=== PATIENT | male | born 1950 | race Caucasian/White ===

== ENCOUNTER 2021-03-10 15:05 | Outpatient (REF) | payer OTHER, SELFPAY ==
[2021-03-10 16:48] LABS: MANUAL DIFF FLAG NO
[2021-03-10 16:55] LABS: Basophils Percent Auto 0.3 % (0-2); Eosinophils Absolute Auto 0.2 X10*3/uL (0.0-0.4); Eosinophils Percent Auto 3.1 % (0-4); Hematocrit 29.1 % (42-52); Hemoglobin 9.4 g/dl (14.0-18.0); Imm Gran Abs Auto 0.02 X10*3/uL (0.00-0.03); Imm Gran Pct Auto 0.3 % (0.0-0.4); Lymphocytes Absolute Auto 1.1 X10*3/uL (1.2-4.9); Lymphocytes Percent Auto 16.9 % (20-40); Mean Corpuscular HGB Conc 32.3 g/dl (31.0-36.0); Mean Corpuscular Hemoglobin 32.2 pg (27.0-33.0); Mean Corpuscular Volume 99.7 fL (80-98); Monocytes Absolute Auto 0.6 X10*3/uL (0.1-1.2); Neutrophils Absolute Auto 4.3 X10*3/uL (2.0-8.3); Neutrophils Percent Auto 69.4 % (45-73); Platelet Count 107 X10*3/uL (160-400); Red Blood Count 2.92 X10*6/uL (4.60-5.80); Red Cell Distribution Width 15.6 % (11.0-16.0); White Blood Count 6.2 X10*3/uL (4.8-10.8)
[2021-03-10 17:00] LABS: INTERNATIONAL NORM RATIO 1.6 (0.9-1.1); Prothrombin Time 19.2 SEC (10.8-13.0)
[2021-03-10 17:22] LABS: Alanine Aminotransferase 24 U/L (0-40); Albumin Level 3.9 g/dL (3.5-5.0); Alkaline Phosphatase 194 U/L (39-117); Anion Gap 13 (12-20); Aspartate Amino Transferase 35 U/L (5-37); Bilirubin Total 1.6 mg/dL (0.0-1.0); Blood Urea Nitrogen 34 mg/dL (9-16); C Reactive Protein 0.14 mg/dL (< or = 0.50); Calcium 9.2 mg/dL (8.4-10.2); Carbon Dioxide 26 mmol/L (22-29); Chloride 104 mmol/L (96-108); Estimated Glomerular Filt Rate 42; Glucose Random 125 mg/dL (60-115); Potassium 3.8 mmol/L (3.3-5.1); Sodium 139 mmol/L (135-145); Total Protein 6.9 g/dL (6.5-8.0)
[2021-03-10 17:35] LABS: Erythrocyte Sedimentation Rate 23 MM/HR (0-15)
[2021-03-10 17:43] LABS: Ferritin 155 ng/mL (20-250); TSH reflex Free T4 2.88 uIU/mL (0.32-4.0); Vitamin D 25-OH Total 57.4 ng/mL (>30)
[2021-03-10 17:58] LABS: Folate > 20.0 ng/mL (> or = 4.0); Vitamin B12 434 pg/mL (200-900)
[2021-03-12 21:51] LABS: Transglutaminase Ab IgG 4 U/mL
[2021-03-13 15:17] LABS: Mitochondrial Antibodies NEGATIVE (NEGATIVE)
[2021-03-13 20:06] LABS: Immunoglobulin G 1382 mg/dL (600-1540)
[2021-03-14 11:51] LABS: Smooth Muscle Antibody <20 U (<20)
[2021-03-14 13:02] LABS: Vitamin B6 23.1 ng/mL (2.1-21.7)
[2021-03-14 17:32] LABS: Alpha-Tocopherol 8.7 mg/L (5.7-19.9); Beta-Gamma Tocopherol <1.0 mg/L (<=4.3); Vitamin A 73 mcg/dL (38-98)
[2021-03-15 15:27] LABS: Anti Nuclear Antibody Screen NEGATIVE (NEGATIVE)
[2021-03-15 16:36] LABS: Vitamin B5 (Pantothenic Acid) 202 ng/mL (<275)
[2021-03-17 10:42] LABS: Alpha 1 Anti-trypsin 162 mg/dL (83-199); Ceruloplasmin 33 mg/dL (18-36)
[2021-03-17 11:06] LABS: Soluble Liver Ag Autoantibody <20.1 U (0.0-20.0)
== END 2021-03-10 15:06 | disposition home or self-care (01) ==
LOC: HO.LAB 15:05
PROVIDERS: PCP Nurse Practitioner Family; Visit Provider Internal Medicine Gastroenterology
DX: K74.60 Unspecified cirrhosis of liver (principal); R26.9 Unspecified abnormalities of gait and mobility; K75.81 Nonalcoholic steatohepatitis (NASH)
CPT/HCPCS: 36415; 80053; 82103; 82180; 82306; 82390; 82607; 82728; 82746; 82784; 83516; 83520; 84207; 84443; 84446; 84590; 84591; 85025; 85610; 85652; 86038; 86039; 86140; 86255; 86256

== ENCOUNTER 2021-04-15 08:00 | Outpatient (REF) | payer OTHER, SELFPAY ==
--- NOTE | ~2021-04-15 | US_ITS ---
EXAMINATION: US COMPLETE ABDOMEN WITH LIVER ELASTOGRAPHY CLINICAL INFORMATION: Cirrhosis of liver. COMPARISON: None. TECHNIQUE: Real-time imaging of the abdominal viscera. Noninvasive ultrasound liver fibrosis assessment is performed using Mary ElastPQ point quantification shear wave elastography (pSWE) with a C5-2 MHz transducer. Multiple elastography samples are obtained. FINDINGS: PANCREAS: The pancreas is partially obscured by overlying gas. The visualized body of the pancreas is homogeneous in echotexture. ABDOMINAL AORTA: The proximal, middle, and distal aortic segments are normal in caliber. INFERIOR VENA CAVA: Visualized portions are normal. LIVER: There is mild perihepatic fluid. The liver demonstrates normal size, contour and increased echogenicity. No focal lesion or intrahepatic biliary duct dilatation. The right lobe measures 14.8 cm in length. The left lobe measures 13.3 cm in length. Portal flow is hepatopedal and biphasic. Shear wave liver elastography median stiffness is 1.77 m/s (reference: normal median stiffness is 1.3 m/s or less). IQR/median stiffness to assess sampling precision is 0.39 (reference: good quality data set is IQR/median stiffness of 0.15 or less). GALLBLADDER: There are multiple echogenic non-shadowing gallstones with mild wall thickening. There is minimal fluid visualized in the gallbladder. No pericholecystic fluid collection seen. COMMON BILE DUCT: Normal in caliber measuring 0.2 cm in diameter. RIGHT KIDNEY: Normal. No hydronephrosis. No renal calculi or focal parenchymal lesions. The kidney measures 11.4 cm in maximum dimension. LEFT KIDNEY: There is an anechoic cyst lower pole measuring 0.5 x 0.3 x 0.5 cm. No hydronephrosis. No renal calculi or focal parenchymal lesions. The kidney measures 12.3 cm in maximum dimension. SPLEEN: Normal. The spleen measures 12.4 cm in maximum dimension. FREE FLUID: None. US/US abdomen comp w elastography IMPRESSION: 1. Hepatic steatosis without any focal lesion. Mild ascites. Non-shadowing gallstones with mild wall thickening. Minimal fluid seen in the gallbladder wall. 2. Liver elastography: Median stiffness 1.77 corresponding to cACLD suggestive. REFERENCE: Society of Radiologists in Ultrasound Liver Stiffness Thresholds (2020): LIVER STIFFNESS THRESHOLDS: *Liver Stiffness equal or less than 1.3 m/s: High probability of being normal. *Liver Stiffness less than 1.7 m/s: In the absence of other known clinical signs, rules out compensated advanced chronic liver disease. *Liver Stiffness 1.7-2.1 m/s: Suggestive of compensated advanced chronic liver disease but need further test for confirmation. *Liver Stiffness over 2.1 m/s: Rules in compensated advanced chronic liver disease. *Liver Stiffness over 2.4 m/s: Suggestive of clinically significant portal hypertension. QUALITY OF DATA SET: *IQR/Median value equal or less than 0.15 implies a quality data set. *IQR/Median value over 0.15 implies a poor quality data set. SIGNIFICANT CHANGE FROM PRIOR EXAM: Significant change if liver stiffness measurement is 10% or greater from prior exam. OTHER CONSIDERATIONS: The stage of liver fibrosis may be overestimated in the setting of acute hepatitis, liver inflammation, elevated liver function tests, hepatic vascular congestion, obstructive cholestasis, non-fasting state, and infiltrative diseases such as amyloidosis and lymphoma. In some patients with NAFLD, the liver stiffness thresholds for compensated advanced chronic liver disease may be lower. In causes other than viral hepatitis and NAFLD, liver stiffness thresholds are not well established.
== END 2021-04-15 08:01 | disposition home or self-care (01) ==
LOC: HO.US 08:00
PROVIDERS: Visit Provider Internal Medicine Gastroenterology
DX: K74.60 Unspecified cirrhosis of liver (principal); R26.9 Unspecified abnormalities of gait and mobility
CPT/HCPCS: 76705; 76981

== ENCOUNTER 2021-04-15 08:35 | Day surgery (SDC) | payer OTHER, SELFPAY ==
[2021-04-08 20:02] VITALS: BMI 28.2
--- NOTE | 2021-04-13 14:36 | HO.ANESPROP2 ---
HPI - Anesthesia Eval Consult details Narrative: 71yo M for Upper Endoscopy High risk case reviewed with Dr Patel Current management for severe MR/TR at [facility]. All providers aware of recent cirrhosis diagnosis and waiting for results of GI w/u to decide on decision making for surgical repair of valve vs clip. Eliquis for afib (ok to hold per cardiology) h/o bio AVR and CABG 2014 [facility] Active Problems Active Problems: All Active Problems (Updated 04/09/21 @ 11:21 by Zulema Nails) Cirrhosis of liver (Acute) Gait disturbance (Acute) Past Medical History Medical History (Updated 04/13/21 @ 14:42 by Kaitlynn Lewis) Afib Asthma CHF (congestive heart failure) CKD (chronic kidney disease) Headache Hx of carotid stenosis Hypertension Mitral valve regurgitation On anticoagulant therapy On beta juana at home Tricuspid valve regurgitation Surgical History Surgical History (Updated 04/13/21 @ 14:43 by Kaitlynn Lewis) H/O aortic valve repair (~2014) History of decompression of ulnar nerve History of detached retina repair History 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) Social History Social History Patient Tobacco Use Status: Never used Tobacco Use of substances other than those prescribed or required for medical reasons: No Are you DNR?: No Advance Directives: No Advance Directives Information Provided: No Advance Directives on File: No Recently lost weight without trying: No Nutrition Risks: No Nutritional Risk Meds Allergies Allergy/AdvReac Type Severity Reaction Status Date / Time adhesive Allergy Severe Hives Verified 03/12/21 12:11 CASHEWS Allergy Severe Anaphylaxis Uncoded 03/12/21 12:09 peanuts Allergy Severe Anaphylaxis Uncoded 03/12/21 12:09 Home Medications Medication Instructions Recorded Confirmed Last Taken Type albuterol sulfate [Proventil HFA] 2 puff INHALATION DAILY 04/08/21 04/08/21 Unknown History apixaban [Eliquis] 1 tab PO BID 04/08/21 04/08/21 Unknown History ascorbic acid (vitamin C) [Vitamin 500 mg PO DAILY 04/08/21 04/08/21 Unknown History C] atorvastatin 1 tab PO DAILY 04/08/21 04/08/21 Unknown History budesonide-formoterol [Symbicort] 2 puff INHALATION BID 04/08/21 04/08/21 Unknown History budesonide-formoterol [Symbicort] 2 puff PO BID 04/08/21 04/08/21 Unknown History bumetanide 2 mg PO DAILY 04/08/21 04/08/21 Unknown History epinephrine 0.3 mg IM Q10M PRN 04/08/21 04/08/21 Unknown History garlic 3 mg PO DAILY 04/08/21 04/08/21 Unknown History hawthorn green 450 mg PO DAILY 04/08/21 04/08/21 Unknown History lactobacillus combination no.4 3,000 mmu cells PO DAILY 04/08/21 04/08/21 Unknown History [Probiotic] latanoprost 1 drp OPHTHALMIC (EYE) DAILY 04/08/21 04/08/21 Unknown History losartan 1 tab PO DAILY 04/08/21 04/08/21 Unknown History metoprolol succinate 1 tab PO Q12H 04/08/21 04/08/21 Unknown History [id number]-[id number]-tif-epa-fish oil [Fish 1 cap PO DAILY 04/08/21 04/08/21 Unknown History Oil] spironolactone 1 tab PO DAILY 04/08/21 04/08/21 Unknown History Exam Exam Date and Time: April 13, 2021 1436 Height,Weight and Vital Signs: Height 5 ft 6 in Weight 79.379 kg Pertinent Lab Results Pertinent Lab Results: Laboratory Tests 03/10/21 03/10/21 16:35 16:35 WBC 6.2 Hgb 9.4 L Hct 29.1 L Plt Count 107 L Sodium 139 Potassium 3.8 Chloride 104 Carbon Dioxide 26 BUN 34 H Creatinine 1.64 H Laboratory Tests 03/10/21 03/10/21 16:35 16:35 PT 19.2 H INR 1.6 H Total Bilirubin 1.6 H AST 35 ALT 24 Alkaline Phosphatase 194 H C-Reactive Protein 0.14 Total Protein 6.9 Albumin 3.9 Narrative Narrative: MARKUS 11/2020 Normal LV size with low normal LV systolic function EF 50% Severe mitral regurg with slightly eccentric jet going towards lateral wall. There appears to be incomplete coaptation of MV leaflet tips. Moderate to severe tricuspid regurg. Normal functioning bioprosthetic AVR. Nuc Myocardial Perfusion 10/2020 Severe LV dilation with mildly reduced LV function EF 45% Small size of moderate apical ischemia just at the apex EKG portion nondiagnostic d/t afib and abnormal baseline Right Heart Cath 01/2021 PA pressure 52/20. Pulm artery wedge pressure mean 24 with a very large V wave c/w severe MR. RV pressure 48/10, RA pressure mean of 14. Cardiac output Brittny 6.1. Cardiac index 3.2. Coronoary angio Left main mild diffuse disease LAD mid 20% D1 looks patent with competitive flow from the LAZARO Circumflex has ostial and proximal 70% RCA proximal 35% mid 30%. This is dominant vessel. LAZARO to D1 is patent but most of the flow appears antegrade through the LAD, no real significant stenosis. Vein graft to OM1 is occluded at the ostium. Antegrade flow throught the circumflex to OM1 EKG 10/2020 Afib @88 Septal infarct, age undetermined When compared with 04/2007 Afib replaced Sinus Septal infarct is new
--- NOTE | 2021-04-15 | ECG_ITS ---
Test Reason : CAD, AVR Blood Pressure : / mmHG Vent. Rate : 083 BPM Atrial Rate : 075 BPM P-R Int : 000 ms QRS Dur : 098 ms QT Int : 414 ms P-R-T Axes : 000 050 255 degrees QTc Int : 486 ms Atrial fibrillation with premature ventricular or aberrantly conducted complexes Nonspecific T wave abnormality Abnormal ECG No previous ECGs available Referred By: Kaitlynn Lewis Electronically Signed By:ДМИТРИЙ YOUNG MD
[2021-04-15 09:16] VITALS: BP 116/67; PULSE 87; RESP 18; TEMP 36.6; O2SAT 100
--- NOTE | 2021-04-15 09:22 | P.CONAN_ITS ---
[facility] Active Problems Active Problems: All Active Problems (Updated 04/13/21 @ 14:42 by Kaitlynn mccoy) Cirrhosis of liver (Acute) Gait disturbance (Acute) Past Medical History Medical History Afib Asthma CHF (congestive heart failure) CKD (chronic kidney disease) Headache Hx of carotid stenosis Hypertension Mitral valve regurgitation On anticoagulant therapy On beta juana at home Tricuspid valve regurgitation Surgical History Surgical History H/O aortic valve repair (~2014) History of decompression of ulnar nerve History of detached retina repair History 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) Social History Social History Patient Tobacco Use Status: Never used Tobacco Use of substances other than those prescribed or required for medical reasons: No Have you been hit, kicked, punched, or otherwise hurt by someone within the past year? If so, by whom?: No Are you DNR?: No Advance Directives: No Advance Directives Information Provided: No Advance Directives on File: No Recently lost weight without trying: No Nutrition Risks: No Nutritional Risk Meds Allergies Allergy/AdvReac Type Severity Reaction Status Date / Time adhesive Allergy Severe Hives Verified 03/12/21 12:11 CASHEWS Allergy Severe Anaphylaxis Uncoded 03/12/21 12:09 peanuts Allergy Severe Anaphylaxis Uncoded 03/12/21 12:09 Active Medications: Current Medications Generic Name Dose Route Start Last Admin Trade Name Freq PRN Reason Stop Dose Admin Albuterol Sulfate 2.5 mg 04/15/21 06:59 Albuterol Sulfate (0.083%) 2.5 Mg/3 Ml Vial.Neb INHALE ONCE PRN Shortness of Breath/Wheezing Lactated Ringer's 500 mls @ 0 mls/hr 04/15/21 07:00 Lr IVCONT .Q0M JOAN KVO Home Medications Medication Instructions Recorded Confirmed Last Taken Type albuterol sulfate [Proventil HFA] 2 puff INHALATION DAILY 04/08/21 04/08/21 Unknown History apixaban [Eliquis] 1 tab PO BID 04/08/21 04/08/21 Unknown History ascorbic acid (vitamin C) [Vitamin 500 mg PO DAILY 04/08/21 04/08/21 Unknown History C] atorvastatin 1 tab PO DAILY 04/08/21 04/08/21 Unknown History budesonide-formoterol [Symbicort] 2 puff INHALATION BID 04/08/21 04/08/21 Unknown History budesonide-formoterol [Symbicort] 2 puff PO BID 04/08/21 04/08/21 Unknown History bumetanide 2 mg PO DAILY 04/08/21 04/08/21 Unknown History epinephrine 0.3 mg IM Q10M PRN 04/08/21 04/08/21 Unknown History garlic 3 mg PO DAILY 04/08/21 04/08/21 Unknown History hawthorn green 450 mg PO DAILY 04/08/21 04/08/21 Unknown History lactobacillus combination no.4 3,000 mmu cells PO DAILY 04/08/21 04/08/21 Unknown History [Probiotic] latanoprost 1 drp OPHTHALMIC (EYE) DAILY 04/08/21 04/08/21 Unknown History losartan 1 tab PO DAILY 04/08/21 04/08/21 Unknown History metoprolol succinate 1 tab PO Q12H 04/08/21 04/08/21 Unknown History rotmv-0v-swb-epa-fish oil [Fish 1 cap PO DAILY 04/08/21 04/08/21 Unknown History Oil] spironolactone 1 tab PO DAILY 04/08/21 04/08/21 Unknown History Exam Exam Date and Time: April 15, [id number] Height,Weight and Vital Signs: Height 5 ft 6 in Weight 79.379 kg Last Vital Signs Temp 97.9 F 04/15/21 09:16 Pulse 87 04/15/21 09:16 Resp 18 04/15/21 09:16 BP 116/67 04/15/21 09:16 Pulse Ox 100 04/15/21 09:16
[2021-04-15 09:29] LABS: Hematocrit 30.5 % (42-52); Hemoglobin 9.7 g/dl (14.0-18.0); Mean Corpuscular HGB Conc 31.8 g/dl (31.0-36.0); Mean Corpuscular Hemoglobin 31.7 pg (27.0-33.0); Mean Corpuscular Volume 99.7 fL (80-98); Mean Platelet Volume 11.1 fL (9.4-12.4); Red Blood Count 3.06 X10*6/uL (4.60-5.80); Red Cell Distribution Width 14.9 % (11.0-16.0); White Blood Count 6.4 X10*3/uL (4.8-10.8)
[2021-04-15 09:30] LABS: Platelet Count 88 X10*3/uL (160-400)
[2021-04-15] MEDS: Lactated Ringers 500 ML 50 ML IVCONT (09:41)
[2021-04-15 09:44] LABS: INTERNATIONAL NORM RATIO 1.3 (0.9-1.1); Prothrombin Time 15.4 SEC (10.8-13.0)
[2021-04-15 10:06] LABS: Anion Gap 14 (12-20); Blood Urea Nitrogen 32 mg/dL (9-16); Calcium 9.2 mg/dL (8.4-10.2); Carbon Dioxide 26 mmol/L (22-29); Chloride 104 mmol/L (96-108); Creatinine Clr Calc Pharmacy 41.1; Estimated Glomerular Filt Rate 42; Glucose Fasting 101 mg/dL (60-99); Potassium 4.1 mmol/L (3.3-5.1); Sodium 140 mmol/L (135-145)
--- NOTE | 2021-04-15 10:08 | HO.ANESPROP2 ---
[facility] Active Problems Active Problems: All Active Problems (Updated 04/13/21 @ 14:42 by Kaitlynn Lewis) Cirrhosis of liver (Acute) Gait disturbance (Acute) Past Medical History Medical History Afib Asthma CHF (congestive heart failure) CKD (chronic kidney disease) Headache Hx of carotid stenosis Hypertension Mitral valve regurgitation On anticoagulant therapy On beta juana at home Tricuspid valve regurgitation Surgical History Surgical History H/O aortic valve repair (~2014) History of decompression of ulnar nerve History of detached retina repair History 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) Social History Social History Patient Tobacco Use Status: Never used Tobacco Use of substances other than those prescribed or required for medical reasons: No Have you been hit, kicked, punched, or otherwise hurt by someone within the past year? If so, by whom?: No Are you DNR?: No Advance Directives: No Advance Directives Information Provided: No Advance Directives on File: No Recently lost weight without trying: No Nutrition Risks: No Nutritional Risk Meds Allergies Allergy/AdvReac Type Severity Reaction Status Date / Time adhesive Allergy Severe Hives Verified 03/12/21 12:11 CASHEWS Allergy Severe Anaphylaxis Uncoded 03/12/21 12:09 peanuts Allergy Severe Anaphylaxis Uncoded 03/12/21 12:09 Active Medications: Current Medications Generic Name Dose Route Start Last Admin Trade Name Freq PRN Reason Stop Dose Admin Albuterol Sulfate 2.5 mg 04/15/21 06:59 Albuterol Sulfate (0.083%) 2.5 Mg/3 Ml Vial.Neb INHALE ONCE PRN Shortness of Breath/Wheezing Lactated Ringer's 500 mls @ 0 mls/hr 04/15/21 07:00 04/15/21 09:41 Lr IVCONT 50 mls/hr .Q0M JOAN Administration KVO Home Medications Medication Instructions Recorded Confirmed Last Taken Type albuterol sulfate [Proventil HFA] 2 puff INHALATION DAILY 04/08/21 04/08/21 Unknown History apixaban [Eliquis] 1 tab PO BID 04/08/21 04/08/21 Unknown History ascorbic acid (vitamin C) [Vitamin 500 mg PO DAILY 04/08/21 04/08/21 Unknown History C] atorvastatin 1 tab PO DAILY 04/08/21 04/08/21 Unknown History budesonide-formoterol [Symbicort] 2 puff INHALATION BID 04/08/21 04/08/21 Unknown History budesonide-formoterol [Symbicort] 2 puff PO BID 04/08/21 04/08/21 Unknown History bumetanide 2 mg PO DAILY 04/08/21 04/08/21 Unknown History epinephrine 0.3 mg IM Q10M PRN 04/08/21 04/08/21 Unknown History garlic 3 mg PO DAILY 04/08/21 04/08/21 Unknown History hawthorn green 450 mg PO DAILY 04/08/21 04/08/21 Unknown History lactobacillus combination no.4 3,000 mmu cells PO DAILY 04/08/21 04/08/21 Unknown History [Probiotic] latanoprost 1 drp OPHTHALMIC (EYE) DAILY 04/08/21 04/08/21 Unknown History losartan 1 tab PO DAILY 04/08/21 04/08/21 Unknown History metoprolol succinate 1 tab PO Q12H 04/08/21 04/08/21 Unknown History tkgpi-7l-poz-epa-fish oil [Fish 1 cap PO DAILY 04/08/21 04/08/21 Unknown History Oil] spironolactone 1 tab PO DAILY 04/08/21 04/08/21 Unknown History Exam Exam Date and Time: April 15, 2021 1008 Height,Weight and Vital Signs: Height 5 ft 6 in Weight 79.379 kg Last Vital Signs Temp 97.9 F 04/15/21 09:16 Pulse 87 04/15/21 09:16 Resp 18 04/15/21 09:16 BP 116/67 04/15/21 09:16 Pulse Ox 100 04/15/21 09:16 Pertinent Lab Results Pertinent Lab Results: Laboratory Tests 04/15/21 04/15/21 04/15/21 09:22 09:22 09:22 WBC 6.4 RBC 3.06 L Hgb 9.7 L Hct 30.5 L MCV 99.7 H MCH 31.7 MCHC 31.8 RDW 14.9 Plt Count 88 L MPV 11.1 Absolute Nucleated RBC 0.000 Nucleated RBC % (auto) 0.0 PT 15.4 H INR 1.3 H Sodium 140 Potassium 4.1 Chloride 104 Carbon Dioxide 26 Anion Gap 14 BUN 32 H Creatinine 1.63 H Estim Creat Clear Calc 41.1 Estimated GFR 42 Fasting Glucose 101 H Calcium 9.2 Airway Mallampati Class: II TM Dist: >3cm Neck ROM: Full Heart: irregular Lungs: CTA
--- NOTE | 2021-04-15 10:14 | P.HPSUR_ITS ---
Pre-Procedural Eval Section A Date of Service: 04/15/21 Section B Chief Complaint: cirrhosis of liver Relevant Family History (Specify if Yes): No Relevant Social History: None Present Medications: see Short Stay Collaborative assessment Medical History: Significant History (Afib Asthma CHF (congestive heart failure) CKD (chronic kidney disease) Headache Hx of carotid stenosis Hypertension Mitral valve regurgitation On anticoagulant therapy On beta juana at home Tricuspid valve regurgitation) History of Previous Operations: Relevant previous surgery/procedure and date(s) (H/O aortic valve repair (~2014) History of decompression of ulnar nerve History of detached retina repair History 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)) Allergies: Allergies Allergy/AdvReac Type Severity Reaction Status Date / Time adhesive Allergy Severe Hives Verified 03/12/21 12:11 CASHEWS Allergy Severe Anaphylaxis Uncoded 03/12/21 12:09 peanuts Allergy Severe Anaphylaxis Uncoded 03/12/21 12:09 Review of Systems Sugical H&P ROS: Negative: Constitution, Cardiovascular, Respiratory, Neurological, Psychiatric, Hem-Onc, Allergic/Immunologic, Gastrointestinal, Genitourinary, Musculoskeletal, Integumentary, Endocrine and E yes/Ears/Nose/Throat Exam Surgical H&P Exam: Normal: HEENT, Normal: Heart, Normal: Lungs, Normal: Extremities, Normal: Abdomen, Normal: Skin and Normal: Neurological Plan Diagnosis/Plan: Unchanged I have reviewed the history and physical and performed a pertinent physical examination on my patient. No changes have occurred unless specified.
--- NOTE | 2021-04-15 10:16 | P.BOP_ITS ---
Brief Operative Note Date of Service: 04/15/21 Pre-op diagnosis: earyl satiety, hx of cirrhosis Post-op diagnosis: same Procedure: see op note Surgeon: Darin Garay MD Anesthesia: MAC Was an Documentation Manager used for this Procedure?: No Estimated blood loss (mL): 0 Condition: stable Disposition: PACU
--- NOTE | 2021-04-15 10:16 | W.PM.OPN ---
Operative Note Operative Note Date of Service: 04/15/21 Narrative: Procedure Description: EGD FLEXIBLE TRANSORAL UPPER GASTROINTESTINAL ENDOSCOPY UPPER ENDOSCOPY Consent: Indications for the procedure and potential complications of bleeding, perforation, reaction to medications and missed diagnosis were discussed with the patient and informed consent was obtained. Instrument: Olympus GIF H 190 J mid size upper endoscope Monitoring: Vital signs and clinical assessment, continuous EKG monitoring, Pulse oximetry, Carbon Dioxide monitoring and blood pressure monitoring were done throughout the procedure. Procedure: The patient was placed in the left lateral decubitis position and pre-procedure medications were administered and a bite block was placed. The endoscope was inserted into the mouth and advanced under direct vision to the third part of duodenum. A careful inspection was made as the upper endoscope was withdrawn including a retroflexed examination of the proximal stomach; Findings and interventions are described below. Findings: Larynx:normal Esophagus: GE junction at 41 cm, diaphragm hiatus at 41 cm, one small varix noted, mild esophagitis Stomach: Patchy gastric erythema with mosaic pattern consistent with portal hypertensive gastropathy . Biopsies were obtained. Grade 2 flap valve on retroflexed examination of the cardia. No gastric varices seen Duodenum: Normal bulb and descending duodenum, bx taken There appeared to be a paucity of gastric movement Intervention: Biopsies as noted above Impression/Findings: possible gastroparesis esophagitis gastritis portal hypertensive gastropathy esophageal varix PLAN: will d/w patient about getting gastric emptying study, await bx results, may benefit from PPi if not taking
[2021-04-15 10:53] VITALS: BP 91/57; PULSE 79; RESP 16; TEMP 36.9; O2SAT 95
[2021-04-15 11:08] VITALS: BP 91/58; PULSE 71; RESP 18; O2SAT 96
[2021-04-15 11:23] VITALS: BP 97/60; PULSE 74; RESP 16; O2SAT 98
[2021-04-15 11:40] VITALS: BP 100/64; PULSE 83; RESP 20; O2SAT 99
== END 2021-04-15 12:35 | disposition home or self-care (01) ==
PROVIDERS: Nurse Practitioner; PCP Nurse Practitioner Family; Visit Provider Internal Medicine Gastroenterology
PROC: 0DJ08ZZ Inspection of Upper Intestinal Tract, Via Natural or Artificial Opening Endoscopic (ICD-10-PCS; CPT 43235; principal; 2021-04-15 10:10)
DX: K74.60 Unspecified cirrhosis of liver (principal); R63.4 Abnormal weight loss; K76.6 Portal hypertension; K31.89 Other diseases of stomach and duodenum; K31.84 Gastroparesis; K29.50 Unspecified chronic gastritis without bleeding; K20.90 Esophagitis, unspecified without bleeding; K44.9 Diaphragmatic hernia without obstruction or gangrene; I85.00 Esophageal varices without bleeding; I48.91 Unspecified atrial fibrillation; J45.909 Unspecified asthma, uncomplicated; I13.0 Hypertensive heart and chronic kidney disease with heart failure and stage 1 through stage 4 chronic kidney disease, or unspecified chronic kidney disease; N18.9 Chronic kidney disease, unspecified; I50.9 Heart failure, unspecified; Z79.01 Long term (current) use of anticoagulants; Z79.899 Other long term (current) drug therapy
CPT/HCPCS: 43239; 36415; 80048; 85027; 85610; 88305; 88342; 93005; J3010

== ENCOUNTER 2021-05-06 18:41 | Inpatient (IN) | payer OTHER, MEDICARE, SELFPAY ==
--- NOTE | ~2021-05-06 | XR_ITS ---
EXAMINATION: XR TIBIA AND FIBULA, LEFT CLINICAL INFORMATION: Pain, swelling, tenderness COMPARISON: None TECHNIQUE: AP and lateral views of the left tibia and fibula were obtained. FINDINGS: Total knee arthroplasty hardware appears well seated and in anatomic alignment. No acute fracture is seen. Alignment at the ankle is anatomic. Vascular calcification is present. There is chronic appearing fragmentation of the tibial tubercle. Some anterior soft tissue swelling is noted in the infrapatellar region of the knee. XR/XR tibia fibula LT 2V IMPRESSION: Anterior soft tissue swelling in the infrapatellar region. No acute osseous findings.
--- NOTE | ~2021-05-06 | XR_ITS ---
EXAMINATION: XR CHEST CLINICAL INFORMATION: Shortness of breath. Volume overload. COMPARISON: None TECHNIQUE: 2 views of the chest were obtained. FINDINGS: Status post median sternotomy. The heart size is enlarged. No acute abnormality of the chest. No pulmonary vascular congestion. The airspace disease or pleural effusion. There are degenerative changes of glenohumeral joints and acromioclavicular joints of each shoulder. Multilevel degenerative spondylosis of the dorsal spine. XR/XR chest 2V IMPRESSION: No acute abnormality of chest. Cardiomegaly.
--- NOTE | ~2021-05-06 | US_ITS ---
EXAMINATION: US VENOUS ULTRASOUND WITH DOPPLER LOWER EXTREMITY, LEFT CLINICAL INFORMATION: Left lower extremity edema with pain COMPARISON: None TECHNIQUE: Ultrasound of the deep veins is performed from the hip to the calf with compression sonography and color and pulse Doppler assessment. Spectral analysis with color-flow imaging is performed. FINDINGS: There is normal venous compression and respiratory variation and augmented flow. The visualized common femoral vein, superficial femoral vein, profunda femoral vein, popliteal vein, and the trifurcation region shows no evidence of deep venous thrombosis. There is no significant popliteal fossa cyst. At 2.9 cm left groin lymph node is present. The right common femoral vein appears normal. If the patient's symptoms persist, followup ultrasound in 5 days 7 days might be of value to exclude proximal propagation from a non-visualized calf vein. US/US venous duplex LE IMPRESSION: No DVT demonstrated in the left lower extremity.
[2021-05-06 19:50] VITALS: BP 105/63; PULSE 80; RESP 16; TEMP 36.9; O2SAT 98; BMI 28.0
[2021-05-06 20:11] LABS: MANUAL DIFF FLAG NO
[2021-05-06 20:19] LABS: Basophils Percent Auto 0.3 % (0-2); Eosinophils Absolute Auto 0.1 X10*3/uL (0.0-0.4); Eosinophils Percent Auto 1.1 % (0-4); Hematocrit 30.3 % (42-52); Hemoglobin 9.8 g/dl (14.0-18.0); Imm Gran Abs Auto 0.04 X10*3/uL (0.00-0.03); Imm Gran Pct Auto 0.4 % (0.0-0.4); Lymphocytes Absolute Auto 0.9 X10*3/uL (1.2-4.9); Lymphocytes Percent Auto 8.8 % (20-40); Mean Corpuscular HGB Conc 32.3 g/dl (31.0-36.0); Mean Corpuscular Hemoglobin 31.5 pg (27.0-33.0); Mean Corpuscular Volume 97.4 fL (80-98); Mean Platelet Volume 10.9 fL (9.4-12.4); Monocytes Absolute Auto 0.9 X10*3/uL (0.1-1.2); Monocytes Percent Auto 8.8 % (2-11); Neutrophils Absolute Auto 8.1 X10*3/uL (2.0-8.3); Neutrophils Percent Auto 80.6 % (45-73); Red Blood Count 3.11 X10*6/uL (4.60-5.80); Red Cell Distribution Width 14.2 % (11.0-16.0); White Blood Count 10.1 X10*3/uL (4.8-10.8)
[2021-05-06 20:21] LABS: Platelet Count 88 X10*3/uL (160-400)
[2021-05-06 20:42] LABS: Anion Gap 15 (12-20); Blood Urea Nitrogen 38 mg/dL (9-16); Carbon Dioxide 25 mmol/L (22-29); Chloride 101 mmol/L (96-108); Creatinine Clr Calc Pharmacy 35.7; Estimated Glomerular Filt Rate 36; Glucose Random 92 mg/dL (60-115); Potassium 4.5 mmol/L (3.3-5.1); Sodium 136 mmol/L (135-145)
--- NOTE | 2021-05-06 20:50 | ECG_ITS ---
Test Reason : LEG SWELLING Blood Pressure : / mmHG Vent. Rate : 087 BPM Atrial Rate : 166 BPM P-R Int : 000 ms QRS Dur : 096 ms QT Int : 406 ms P-R-T Axes : 000 045 158 degrees QTc Int : 488 ms Atrial fibrillation Nonspecific T wave abnormality Prolonged QT Abnormal ECG When compared with ECG of 15-APR-2021 09:24, No significant change was found Referred By: Sena Morfin Electronically Signed By:ДМИТРИЙ YOUNG MD
--- NOTE | 2021-05-06 20:52 | ED.EXTPRO ---
HPI - Extremity Problem General Chief complaint: Extremity Problem Stated complaint: Leg Swelling/Hot to touch Time Seen by Provider: 05/06/21 20:34 Source: patient and family Mode of arrival: wheelchair Limitations: no limitations History of Present Illness HPI Narrative: 71 y/o male with history of atrial fibrillation on apixaban, asthma, CKD, carotid stenosis, cirrhosis (?MEJÍA) with portal HTN and esophageal varies, CHF w/ EF 45%, severe mitral regurgitation and tricuspid regurgitation, s/p aortic valve placement & CABG 6 years ago who presents to the ER with acute onset of LLE pain, redness and swelling that started today. He denies injury or trauma. He reports his left lower leg all of the sudden became red and painful when he woke up today. He denies fever, chills. Temp recorded at 99 at home. He is unable to walk due to the pain. He reports decreased PO intake and upset stomach. He also reports increase in LE edema and increase in SOB. He is currently in the middle of a workup for possible valve replacements at [facility] and was supposed to get admitted to a hospital for IV diuresis for increase LE edema and SOB. Family reports this was delayed due to affairs at home. His overall weight has been decreasing but his LE edema and SOB are worsening. He has been compliant with his Bumex. Admits to trying to find salt whenever I can but family does not cook with it. Complaint: extremity pain Onset (ago): hour(s) (12) Pain Consistency: constant Location: left and lower extremity Severity scale (1-10): 8 Quality: burning and aching Radiation: proximal Relieving factors: rest Exacerbating factors: range of motion, weight bearing, walking and palpation Associated symptoms: shortness of breath and myalgias Related Data Home Medications Medication Instructions Recorded Confirmed albuterol sulfate [Proventil HFA] 2 puff INHALATION DAILY 04/08/21 05/06/21 apixaban [Eliquis] 1 tab PO BID 04/08/21 05/06/21 ascorbic acid (vitamin C) [Vitamin 1,000 mg PO DAILY@12 04/08/21 05/06/21 C] atorvastatin 1 tab PO BEDTIME 04/08/21 05/06/21 budesonide-formoterol [Symbicort] 2 puff INHALATION BID 04/08/21 05/06/21 bumetanide 2 mg PO DAILY 04/08/21 05/06/21 epinephrine 0.3 mg IM Q10M PRN 04/08/21 05/06/21 hawthorn green 450 mg PO BEDTIME 04/08/21 05/06/21 lactobacillus combination no.4 3,000 mmu cells PO DAILY@12 04/08/21 05/06/21 [Probiotic] latanoprost 1 drp OPHTHALMIC (EYE) BEDTIME 04/08/21 05/06/21 losartan 1 tab PO DAILY 04/08/21 05/06/21 metoprolol succinate 1 tab PO Q12H 04/08/21 05/06/21 [id number] oil [Fish 1 cap PO BEDTIME 04/08/21 05/06/21 Oil] spironolactone 1 tab PO DAILY 04/08/21 05/06/21 erythromycin 1 appl OPHTHALMIC (EYE) BEDTIME 05/06/21 05/06/21 garlic 1,000 mg PO DAILY@12 05/06/21 05/06/21 montelukast 1 tab PO BEDTIME 05/06/21 05/06/21 multivitamin 1 tab PO DAILY 05/06/21 05/06/21 Allergies Allergy/AdvReac Type Severity Reaction Status Date / Time adhesive Allergy Severe Hives Verified 05/06/21 19:55 CASHEWS Allergy Severe Anaphylaxis Uncoded 05/06/21 19:55 peanuts Allergy Severe Anaphylaxis Uncoded 05/06/21 19:55 Review of Systems Review of Systems: Constitutional: No Fever, No Chills ENT/Mouth: No sore throat, No Rhinorrhea, No Swallowing Difficulty Eyes: No Eye Pain, No Swelling, No Redness Cardiovascular: No Chest Pain, + SOB, + Orthopnea, + Edema Respiratory: No Cough, No Sputum, No Wheezing, + dyspnea Gastrointestinal: No Nausea, No Vomiting, No Diarrhea, No abdominal Pain Genitourinary: No Dysuria, No Urinary Frequency, No Hematuria Musculoskeletal: No joint pain, + Myalgias Skin: + Skin Lesions, No rash Neuro: + Weakness, No Numbness, No Dizziness, No Headache Psych: No Anxiety/Panic, No Depression Heme/Lymph: + Bruising, No Lymphadenopathy Endocrine: No Polyuria, No Polydipsia PMFSH Past Medical History Attestation statement: The following information was validated with the patient. Medical History Afib Asthma CHF (congestive heart failure) CKD (chronic kidney disease) Headache Hx of carotid stenosis Hypertension Mitral valve regurgitation On anticoagulant therapy On beta juana at home Tricuspid valve regurgitation Surgical History H/O aortic valve repair (~2014) History of decompression of ulnar nerve History of detached retina repair History 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) Social History Social History Patient Tobacco Use Status: Never used Tobacco Advance Directives: No Advance Directives Information Provided: Yes Physical Exam Vital Signs: Vital Signs: Last Vital Signs Temp 98.8 F 05/06/21 22:33 Pulse 107 H 05/06/21 22:33 Resp 16 05/06/21 22:33 BP 92/50 L 05/06/21 23:45 Pulse Ox 98 05/06/21 22:33 Body Mass Index 28.0 Appearance: Alert. Oriented X3. No acute distress. Slight yellowing of skin Eyes: Pupils asymmetric but reactive to light (chronic per family), EOMI, no nystagmus ENT: Pharynx normal. Neck: Normal inspection. Neck supple. CVS: irregularly irregular, +murmus. Pulses normal. Respiratory: No respiratory distress. Breath sounds with bibasilar rales, Speaks in complete sentences Abdomen: Soft with mild RUQ tenderness, ne rebound or guarding. +BS x4 Skin: Skin warm and dry. Normal skin turgor. No rashes. Extremities: 3+ lower extremity edema. LLE with distal area of erythema, warmth and tenderness from ankle to middle tibia. NV intact distally. Neuro: Oriented X 3. No motor deficit. No sensory deficit. Unable to assess gait due to pain. Course Course Course Narrative: 71 y/o male with multiple comorbidities including CHF w/ EF 45%, severe TR/MR, cirrhosis, CKD presenting with LLE erythema, warmth and tenderness consistent with localilzed cellulitis. He is not diabetic. He is not febrile or tachycardic on arrival. Does not appear to be septic at this time. He has significant bilateral LE edema and reports ongoing SOB. Will get labs, CXR, EKG, and LE doppler (per family request, DVT less likely given he is on Eliquis). Reviewed records at the bedside with the family from [facility] as well as imaging done as an outpatient. Will give IV rocephin for cellulitis. Reevaluation(s) Reevaluation #1: No leukocytosis on labs. Renal function slightly worsening. ?Cardiorenal. Mild elevation in troponin. Doubt ACS. EKG showing chronic afib. Reevaluation #2: CXR showing only cardiomegaly. LE doppler negative. Not hypoxia. BNP is 745. Will plan to admit for LLE cellulitis and CHF exacerbation/volume overload. BP soft 90/60s with MAP 61-64. Will hold off on IV diuresis for now and plan for oral diuretics tonight, discussed with Hospitalist Dr. Blank. Upon review his BP has run in the 90/50s one month ago as well, this may be his baseline. He is AAO x3 and asymptomatic from his soft BP. Do not think that this is from sepsis at this time. IVF would be more harmful than helpful at this time. Will hold antihypertensives and monitor BP closely. Patient to be admitted for further management. Cardiology to see tomorrow. MDM - Extremity (Nontraumatic) Lab Data Result diagrams: 05/06/21 20:06 05/06/21 20:06 Labs: Lab Results 05/06/21 05/06/21 05/06/21 Range/Units 20:06 20:06 20:06 WBC 10.1 (4.8-10.8) X10*3/uL RBC 3.11 L (4.60-5.80) X10*6/uL Hgb 9.8 L (14.0-18.0) g/dl Hct 30.3 L (42-52) % MCV 97.4 (80-98) fL MCH 31.5 (27.0-33.0) pg MCHC 32.3 (31.0-36.0) g/dl RDW 14.2 (11.0-16.0) % Plt Count 88 L (160-400) X10*3/uL MPV 10.9 (9.4-12.4) fL Immature Gran % (Auto) 0.4 (0.0-0.4) % Neut % (Auto) 80.6 H (45-73) % Lymph % (Auto) 8.8 L (20-40) % Angelina % (Auto) 8.8 (2-11) % Eos % (Auto) 1.1 (0-4) % Baso % (Auto) 0.3 (0-2) % Lymph # (Auto) 0.9 L (1.2-4.9) X10*3/uL Angelina # (Auto) 0.9 (0.1-1.2) X10*3/uL Eos # (Auto) 0.1 (0.0-0.4) X10*3/uL Baso # (Auto) 0.0 (0.0-0.2) X10*3/uL Abs Immat Gran (auto) 0.04 H (0.00-0.03) X10*3/uL Absolute Neuts (auto) 8.1 (2.0-8.3) X10*3/uL Absolute Nucleated RBC 0.000 (0.0-0.012) X10*3/uL Nucleated RBC % (auto) 0.0 (0.0-0.2) /100WBC ESR Sodium 136 (135-145) mmol/L Potassium 4.5 (3.3-5.1) mmol/L Chloride 101 (96-108) mmol/L Carbon Dioxide 25 (22-29) mmol/L Anion Gap 15 (12-20) BUN 38 H (9-16) mg/dL Creatinine 1.87 H (0.5-1.4) mg/dL Estim Creat Clear Calc 35.7 Estimated GFR 36 Random Glucose 92 (60-115) mg/dL Lactic Acid (0.5-2.0) mmol/L Calcium 9.0 (8.4-10.2) mg/dL Total Bilirubin 2.0 H (0.0-1.0) mg/dL Direct Bilirubin 1.1 H (0.0-0.5) mg/dL AST 29 (5-37) U/L ALT 24 (0-40) U/L Alkaline Phosphatase 213 H (39-117) U/L Troponin I High Sens 18.4 (<3.5-35.0) ng/L C-Reactive Protein 0.66 H (< or = 0.50) mg/dL B-Natriuretic Peptide 745 H (<100) pg/mL Total Protein 7.1 (6.5-8.0) g/dL Albumin 4.0 (3.5-5.0) g/dL Prealbumin 22.0 (20-40) mg/dL 05/06/21 05/06/21 Range/Units 20:06 21:26 WBC (4.8-10.8) X10*3/uL RBC (4.60-5.80) X10*6/uL Hgb (14.0-18.0) g/dl Hct (42-52) % MCV (80-98) fL MCH (27.0-33.0) pg MCHC (31.0-36.0) g/dl RDW (11.0-16.0) % Plt Count (160-400) X10*3/uL MPV (9.4-12.4) fL Immature Gran % (Auto) (0.0-0.4) % Neut % (Auto) (45-73) % Lymph % (Auto) (20-40) % Angelina % (Auto) (2-11) % Eos % (Auto) (0-4) % Baso % (Auto) (0-2) % Lymph # (Auto) (1.2-4.9) X10*3/uL Angelina # (Auto) (0.1-1.2) X10*3/uL Eos # (Auto) (0.0-0.4) X10*3/uL Baso # (Auto) (0.0-0.2) X10*3/uL Abs Immat Gran (auto) (0.00-0.03) X10*3/uL Absolute Neuts (auto) (2.0-8.3) X10*3/uL Absolute Nucleated RBC (0.0-0.012) X10*3/uL Nucleated RBC % (auto) (0.0-0.2) /100WBC ESR Cancelled Sodium (135-145) mmol/L Potassium (3.3-5.1) mmol/L Chloride (96-108) mmol/L Carbon Dioxide (22-29) mmol/L Anion Gap (12-20) BUN (9-16) mg/dL Creatinine (0.5-1.4) mg/dL Estim Creat Clear Calc Estimated GFR Random Glucose (60-115) mg/dL Lactic Acid 0.9 (0.5-2.0) mmol/L Calcium (8.4-10.2) mg/dL Total Bilirubin (0.0-1.0) mg/dL Direct Bilirubin (0.0-0.5) mg/dL AST (5-37) U/L ALT (0-40) U/L Alkaline Phosphatase (39-117) U/L Troponin I High Sens (<3.5-35.0) ng/L C-Reactive Protein (< or = 0.50) mg/dL B-Natriuretic Peptide (<100) pg/mL Total Protein (6.5-8.0) g/dL Albumin (3.5-5.0) g/dL Prealbumin (20-40) mg/dL ECG Data Attestation EKG: I personally reviewed and interpreted this ECG as follows: ECG interpretation date: 05/06/21 ECG interpretation time: 22:42 Prior ECG tracings: available for review Interpretation: atrial fibrillation, HR 87 bpm, isolated T-wave inversion in V6, no ST segment elevations or depressions Discharge Plan Discharge Clinical Impression: Cellulitis of left leg Acute exacerbation of CHF (congestive heart failure) Qualifiers: Heart failure type: unspecified Qualified Code(s): I50.9 - Heart failure, unspecified Patient Disposition: Admitted As Inpatient
[2021-05-06 21:40] LABS: B Type Natriuretic Peptide 745 pg/mL (<100); Troponin-I High Sensitivity 18.4 ng/L (<3.5-35.0)
[2021-05-06 22:09] LABS: Lactic Acid 0.9 mmol/L (0.5-2.0)
--- NOTE | 2021-05-06 22:31 | PHA.MEDREC ---
Pharmacy Consult ? Medication Reconciliation Pharmacy has completed the medication reconciliation. PT states he only took his AM meds today. He states he still needs his bedtime doses for 05/06/21.
[2021-05-06 22:33] VITALS: BP 91/47; PULSE 107; RESP 16; TEMP 37.1; O2SAT 98
[2021-05-06] MEDS: cefTRIAXone sodium 1 GM in 0.9 % Sodium Chloride 50 ML IV (22:47)
[2021-05-06 22:54] LABS: Alanine Aminotransferase 24 U/L (0-40); Alkaline Phosphatase 213 U/L (39-117); Aspartate Amino Transferase 29 U/L (5-37); Bilirubin Direct 1.1 mg/dL (0.0-0.5); Total Protein 7.1 g/dL (6.5-8.0)
[2021-05-06 23:26] LABS: C Reactive Protein 0.66 mg/dL (< or = 0.50)
--- NOTE | 2021-05-06 23:30 | PC.NURSE ---
Addendum entered by Manuel Akers RN 05/07/21 06:35: lower LEFT leg Original Note: pt requesting to use the bathroom. this nurse offered pt bedside urinal as he is unable to bear much weight on right lower leg but pt refused bedside urinal. this nurse assisted pt to bathroom in wheelchair. pt back in bed at this time. no distress noted. call lópez in reach.
[2021-05-06 23:45] VITALS: BP 92/50
--- NOTE | 2021-05-06 23:45 | PC.NURSE ---
bp 92/50 hospitalist (Pita) notified no new orders at this time.
[2021-05-07] VITALS (10 sets, daily range): BP systolic 82–119; BP diastolic 48–72; PULSE 77–106; RESP 14–29; TEMP 36.8–37.6; O2SAT 96–100
[2021-05-07] MEDS: 0.9 % Sodium Chloride Flush 3 ML SYRINGE IVFLUSH ×3 (00:08→15:30)
[2021-05-07 00:09] LABS: COVID-19 Test Negative (Negative); IDNOW Serial# 9DD0AD1C
--- NOTE | 2021-05-07 00:17 | PM.SEPSISNOT ---
Sepsis Bolus Exclusion Sepsis Bolus Exclusion CHF/Renal Failure This patient met severe sepsis criteria due to the following condition(s):: Hypotension In my clinical judgement the administration of 30 ml/kg of crystalloid would be detrimental to this patient due to the patient's following conditions:: NYHA class III or IV Heart Failure(symptoms with low exertion or rest) Replace the 30 mls/kg with:
[2021-05-07] MEDS: Apixaban 5 MG TABLET PO ×3 (00:19→20:28)
[2021-05-07] MEDS: Atorvastatin Calcium 40 MG TABLET PO ×2 (00:19→20:28)
[2021-05-07 00:22] LABS: Troponin-I High Sensitivity 16.4 ng/L (<3.5-35.0)
--- NOTE | 2021-05-07 00:25 | PC.NURSE ---
pt family at bedside requesting that pt gets his nightly dose of Montelukast (Singulair). first dose is schedules for 05/07/2021 at 21:00 unscheduled night dose given for 05/06/2021 given at 00:26 on 05/07/2021
[2021-05-07] MEDS: Montelukast Sodium 10 MG TABLET PO ×2 (00:33→20:28)
[2021-05-07 00:36] LABS: Erythrocyte Sedimentation Rate 23 MM/HR (0-15)
--- NOTE | 2021-05-07 00:52 | P.HPHOSP_ITS ---
History of Present Illness Date of Service: 05/07/21 Chief Complaint: Left leg pain redness and swelling 71-year-old male with a past medical history of hypertension, hyperlipidemia, CAD status post CABG, carotid artery disease, CHF with EF of 45%, AFib on Eliquis, history of aortic valve replacement, severe mitral and tricuspid regurgitation, liver cirrhosis, portal hypertension, history of esophageal varices, asthma, chronic kidney disease presented to the hospital with a chief complaint of left leg pain redness and swelling. Patient reports that noticed pain redness and swelling of the left leg the past 1 day, when he tried to walk he has increased pain; denies any discharge or ulcerations; denies any trauma or injury to the leg. Patient complains of subjective fevers. Patient denies any chest pain palpitations lightheadedness or dizziness. Patient does report that he has shortness of breath/dyspnea on exertion-at his baseline; per family patient is being [place] [facility] [place] for mitral and tricuspid regurgitation; has seen a heart failure specialist, recommended diuresis/fluid state optimization prior to surgery. Review of all other systems is negative except mentioned above ER course: Per ER team patient noted to have left leg erythema, tender, warmth, consistent with cellulitis, given ceftriaxone. Patient had venous duplex which showed no evidence of DVT. Soft tissue swelling, no acute osseous abnormalities; admitted to the hospital for further management. Also mentioned that patient respiratory status is good, saturating 98% on room air; lungs are clear; but noted to have 2+ pitting edema on the bilateral lower extremities; did not give Bumex given blood pressure on the soft side. [facility] Medical History Afib Asthma CHF (congestive heart failure) CKD (chronic kidney disease) Headache Hx of carotid stenosis Hypertension Mitral valve regurgitation On anticoagulant therapy On beta juana at home Tricuspid valve regurgitation Surgical History H/O aortic valve repair (~2014) History of decompression of ulnar nerve History of detached retina repair History 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) Social History Household Members: None Housing: House Do you presently have visiting nurse or other home services: No Alcohol intake: never Patient Tobacco Use Status: Never used Tobacco Current occupational status: retired Meds Allergies Allergy/AdvReac Type Severity Reaction Status Date / Time adhesive Allergy Severe Hives Verified 05/06/21 19:55 CASHEWS Allergy Severe Anaphylaxis Uncoded 05/06/21 19:55 peanuts Allergy Severe Anaphylaxis Uncoded 05/06/21 19:55 Active Medications: Current Medications Generic Name Dose Route Start Last Admin Trade Name Patty PRN Reason Stop Dose Admin Albuterol Sulfate 2 puff 05/07/21 09:00 Albuterol Sulfate 90 Mcg 8 Gm Inhaler INHALE DAILY [facility] Apixaban 5 mg 05/06/21 23:50 05/07/21 00:19 Apixaban 5 Mg Tablet PO 5 mg BID [facility] Administration Ascorbic Acid 1,000 mg 05/07/21 12:00 Ascorbic Acid 500 Mg Tablet PO DAILY@12 [facility] Atorvastatin Calcium 40 mg 05/06/21 23:50 05/07/21 00:19 Atorvastatin Calcium 40 Mg Tablet PO 40 mg BEDTIME [facility] Administration Bumetanide 2 mg 05/07/21 09:00 Bumetanide 1 Mg Tablet PO DAILY [facility] Protocol Epinephrine 0.3 mg 05/07/21 00:10 Epinephrine 1 Mg/Ml Vial IM Q10M PRN Anaphylaxis Erythromycin 0 cm 05/07/21 21:00 Erythromycin Base 0.5% Oph Oin 1 Gm Tube EYE-BOTH BEDTIME [facility] Fluticasone/Vilanterol 1 puff 05/07/21 09:00 Fluticasone/Vilanterol 200/25 Blst.W.Dev INHALE DAILY [facility] Ceftriaxone Sodium 1 gm/ 50 mls @ 100 mls/hr 05/07/21 10:00 Sodium Chloride IV Q24H [facility] Latanoprost 1 drop 05/06/21 23:50 05/07/21 00:50 Latanoprost 0.005 % Ophth Elena 2.5 Ml Drops EYE-BOTH Not Given BEDTIME [facility] Melatonin 6 mg 05/06/21 23:44 Melatonin 3 Mg Tablet PO BEDTIME PRN Insomnia Montelukast Sodium 10 mg 05/07/21 21:00 05/07/21 00:33 Montelukast Sodium 10 Mg Tablet PO 10 mg BEDTIME [facility] Administration Multivitamins/Vitamin C 1 tab 05/07/21 09:00 Multivitamin Tablet PO DAILY [facility] Pharmacy Consult 1 each 05/06/21 22:06 Consult Rx Perform Med Rec MISCELLANE ONCE PRN Consult order Sodium Chloride 3 ml 05/07/21 00:00 05/07/21 00:08 0.9 % Sodium Chloride Flush 3 Ml Syringe IVFLUSH 3 ml QSHIFT [facility] Administration Spironolactone 25 mg 05/07/21 09:00 Spironolactone 25 Mg Tablet PO DAILY [facility] Protocol Home Medications Medication Instructions Recorded Confirmed Last Taken Type albuterol sulfate 90 mcg/actuation 2 puff INHALATION DAILY 04/08/21 05/06/21 05/06/21 History aerosol inhaler (Proventil HFA) apixaban 5 mg tablet (Eliquis) 1 tab PO BID 04/08/21 05/06/21 05/06/21 History ascorbic acid (vitamin C) 500 mg 1,000 mg PO DAILY@12 04/08/21 05/06/21 05/05/21 History tablet (Vitamin C) atorvastatin 40 mg tablet 1 tab PO BEDTIME 04/08/21 05/06/21 05/05/21 History budesonide-formoterol HFA 160 2 puff INHALATION BID 04/08/21 05/06/21 05/06/21 History mcg-4.5 mcg/actuation aerosol inhaler (Symbicort) bumetanide 2 mg tablet 2 mg PO DAILY 04/08/21 05/06/21 05/06/21 History epinephrine 0.3 mg/0.3 mL 0.3 mg IM Q10M PRN 04/08/21 05/06/21 Unknown History injection, auto-injector adán green 450 mg capsule 450 mg PO BEDTIME 04/08/21 05/06/21 05/05/21 History lactobacillus combination no.4 3 3,000 mmu cells PO DAILY@12 04/08/21 05/06/21 05/05/21 History billion cell capsule (Probiotic) latanoprost 0.005 % eye drops 1 drp OPHTHALMIC (EYE) BEDTIME 04/08/21 05/06/21 05/05/21 History losartan 25 mg tablet 1 tab PO DAILY 04/08/21 05/06/21 05/05/21 History metoprolol succinate 100 mg 1 tab PO Q12H 04/08/21 05/06/21 05/06/21 History tablet,extended release 24 hr [id number]-fish oil 120 1 cap PO BEDTIME 04/08/21 05/06/21 05/05/21 Hi story mg-180 mg-60 mg-1,200 mg capsule, DR (Fish Oil) spironolactone 25 mg tablet 1 tab PO DAILY 04/08/21 05/06/21 05/06/21 History erythromycin 5 mg/gram (0.5 %) eye 1 appl OPHTHALMIC (EYE) BEDTIME 05/06/21 05/06/21 05/05/21 History ointment garlic 1,000 mg capsule 1,000 mg PO DAILY@12 05/06/21 05/06/21 05/05/21 History montelukast 10 mg tablet 1 tab PO BEDTIME 05/06/21 05/06/21 05/05/21 History multivitamin 1 tab PO DAILY 05/06/21 05/06/21 05/06/21 History Physical Exam Vital Signs and Narrative: Vital Signs: Last Vital Signs Temp 98.8 F 05/06/21 22:33 Pulse 107 H 05/06/21 22:33 Resp 16 05/06/21 22:33 BP 92/50 L 05/06/21 23:45 Pulse Ox 98 05/06/21 22:33 Body Mass Index 28.0 Gen: Appears be in no acute distress HEENT: NCAT, Moist mucosa. Pulmonary: Vesicular breath sounds, fair air entry CVS: Normal present Abdomen: BS+, Soft, Nontender Extremities: Warm well perfused; 2+ pitting edema; left leg warm hyperemic and erythematous; tender. Neuro: Alert and awake. Grossly nonfocal Results Labs CBC and Chem 7: 05/07/21 07:40 05/09/21 09:19 Labs: Laboratory Results - last 24 hr 05/06/21 05/06/21 05/06/21 20:06 20:06 20:06 MCV 97.4 MCH 31.5 MCHC 32.3 RDW 14.2 Plt Count 88 L MPV 10.9 Immature Gran % (Auto) 0.4 Neut % (Auto) 80.6 H Lymph % (Auto) 8.8 L [place] % (Auto) 8.8 Eos % (Auto) 1.1 Baso % (Auto) 0.3 Lymph # (Auto) 0.9 L [place] # (Auto) 0.9 Eos # (Auto) 0.1 Baso # (Auto) 0.0 Abs Immat Gran (auto) 0.04 H Absolute Neuts (auto) 8.1 Absolute Nucleated RBC 0.000 Nucleated RBC % (auto) 0.0 ESR Anion Gap 15 Estim Creat Clear Calc 35.7 Estimated GFR 36 Random Glucose 92 Lactic Acid Calcium 9.0 Total Bilirubin 2.0 H Direct Bilirubin 1.1 H AST 29 ALT 24 Alkaline Phosphatase 213 H Troponin I High Sens 18.4 C-Reactive Protein 0.66 H B-Natriuretic Peptide 745 H Total Protein 7.1 Albumin 4.0 Prealbumin 22.0 COVID-19 (BASHIR) COVID-19 Clin Com 05/06/21 05/06/21 05/06/21 20:06 21:26 23:50 MCV MCH MCHC RDW Plt Count MPV Immature Gran % (Auto) Neut % (Auto) Lymph % (Auto) [place] % (Auto) Eos % (Auto) Baso % (Auto) Lymph # (Auto) [place] # (Auto) Eos # (Auto) Baso # (Auto) Abs Immat Gran (auto) Absolute Neuts (auto) Absolute Nucleated RBC Nucleated RBC % (auto) ESR Cancelled Anion Gap Estim Creat Clear Calc Estimated GFR Random Glucose Lactic Acid 0.9 Calcium Total Bilirubin Direct Bilirubin AST ALT Alkaline Phosphatase Troponin I High Sens C-Reactive Protein B-Natriuretic Peptide Total Protein Albumin Prealbumin COVID-19 (BASHIR) Negative COVID-[place] Com See Note 05/06/21 05/06/21 23:50 23:50 MCV MCH MCHC RDW Plt Count MPV Immature Gran % (Auto) Neut % (Auto) Lymph % (Auto) [place] % (Auto) Eos % (Auto) Baso % (Auto) Lymph # (Auto) [place] # (Auto) Eos # (Auto) Baso # (Auto) Abs Immat Gran (auto) Absolute Neuts (auto) Absolute Nucleated RBC Nucleated RBC % (auto) ESR 23 H Anion Gap Estim Creat Clear Calc Estimated GFR Random Glucose Lactic Acid Calcium Total Bilirubin Direct Bilirubin AST ALT Alkaline Phosphatase Troponin I High Sens 16.4 C-Reactive Protein B-Natriuretic Peptide Total Protein Albumin Prealbumin COVID-19 (BASHIR) COVID-19 Clin Com Imaging Radiologist's Impressions: Impressions Venous Duplex 05/06/21 20:35 IMPRESSION: No DVT demonstrated in the left lower extremity. Chest X-Ray 05/06/21 20:50 IMPRESSION: No acute abnormality of chest. Cardiomegaly. Tibia/Fibula X-Ray 05/06/21 22:07 IMPRESSION: Anterior soft tissue swelling in the infrapatellar region. No acute osseous findings. Assessment and Plan (1) Cellulitis of left leg: Status: Acute 71-year-old male with a past medical history of hypertension, hyperlipidemia, CAD status post CABG, carotid artery disease, CHF with EF of 45%, AFib on Eliquis, history of aortic valve replacement, severe mitral and tricuspid regurgitation, liver cirrhosis, portal hypertension, history of esophageal varices, asthma, chronic kidney disease presented to the hospital with a chief complaint of left leg pain redness and swelling. noted to have cellulitis; admitted for further management. Left leg cellulitis: Continue ceftriaxone. Venous duplex and leg access negative for acute findings. Supportive care. Pain control. Mild acute on chronic CHF/MR/TR: Continue home Bumex. I's and o's and daily weights. Cardiology consult. Hypertension: Patient's blood pressure currently on the soft side. Will hold home losartan and metoprolol succinate. History of AFib: Rate controlled. Continue home Eliquis. History of glaucoma,: Continue home eye drops. Hyperlipidemia: Continues home statin DVT prophylaxis: Patient on Eliquis a Code status: Full code Quality Stroke Does the patient have a stroke diagnosis?: No VTE Prior VTE?: No VTE Risk Level:: Medical - moderate - high VTE Device Contraindication: Treatment Not Indicated VTE Drug Contraindication: Treatment Not Indicated
--- NOTE | 2021-05-07 03:29 | PC.NURSE ---
BP 82/55 hospitalist ([place]) notified Per hospitalist, legs to be kept elevated. no other orders at this time.
[2021-05-07 07:45] LABS: MANUAL DIFF FLAG NO
[2021-05-07 07:48] LABS: Basophils Percent Auto 0.2 % (0-2); Eosinophils Absolute Auto 0.1 X10*3/uL (0.0-0.4); Eosinophils Percent Auto 0.9 % (0-4); Hematocrit 28.5 % (42-52); Hemoglobin 9.4 g/dl (14.0-18.0); Imm Gran Abs Auto 0.03 X10*3/uL (0.00-0.03); Imm Gran Pct Auto 0.3 % (0.0-0.4); Lymphocytes Absolute Auto 0.7 X10*3/uL (1.2-4.9); Lymphocytes Percent Auto 8.2 % (20-40); Mean Corpuscular Volume 96.9 fL (80-98); Mean Platelet Volume 10.5 fL (9.4-12.4); Monocytes Absolute Auto 0.7 X10*3/uL (0.1-1.2); Monocytes Percent Auto 7.5 % (2-11); Neutrophils Absolute Auto 7.4 X10*3/uL (2.0-8.3); Neutrophils Percent Auto 82.9 % (45-73); Red Blood Count 2.94 X10*6/uL (4.60-5.80); Red Cell Distribution Width 14.2 % (11.0-16.0)
[2021-05-07 07:52] LABS: Platelet Count 82 X10*3/uL (160-400)
[2021-05-07] MEDS: Multivitamin TABLET 1 TAB PO (08:14)
--- NOTE | 2021-05-07 08:28 | PC.NURSE ---
PT ATE 25% OF BREAKFAST, STATES THAT HE DID NOT LIKE THE BREAKFAST. PT STATES THAT HE LIKE COLD CEREAL. PT OFFERED COLD CEREALS CHOICES RICE KRISPIES, RAISEN BRAN, CHEERIOS AND CORN FLAKES AND REFUSED. PT L LOWER LEG IS YOEL AND 1-2+ PITTING EDEMA NOTED. PT HAS L LOWER EXT ON A PILLOW.
--- NOTE | 2021-05-07 09:22 | P.PNIM_ITS ---
Subjective Subjective Date of Service: 05/07/21 Interval History: Left leg cellulitis Review of Systems Denies any chest pain or shortness of breath or abdominal pain or fever chills As significant erythema of left foot and lower leg Has pain in that lower leg area. Physical Exam Vital Signs: Vital Signs: Last Vital Signs Temp 99.2 F 05/07/21 07:45 Pulse 91 05/07/21 08:11 Resp 18 05/07/21 08:11 BP 97/63 05/07/21 08:11 Pulse Ox 97 05/07/21 08:11 Body Mass Index 28.0 Physical exam: Cvs: rrr, [id number] , no murmur res: clear to auscultation ,no rhonchii or wheezing abd: no rebound or guarding ,nt, bs present. ext pulses present , no cyanosis Erythema of floor foot and leg, no fluctuation or any ulcers neuro: axo3 , nonfocal. Objective Data Current Medications Generic Name Dose Route Start Last Admin Trade Name Freq PRN Reason Stop Dose Admin Albuterol Sulfate 2 puff 05/07/21 09:00 05/07/21 07:58 Albuterol Sulfate 90 Mcg 8 Gm Inhaler INHALE Not Given DAILY [facility] Apixaban 5 mg 05/06/21 23:50 05/07/21 08:14 Apixaban 5 Mg Tablet PO 5 mg BID [facility] Administration Ascorbic Acid 1,000 mg 05/07/21 12:00 Ascorbic Acid 500 Mg Tablet PO DAILY@12 JOAN Atorvastatin Calcium 40 mg 05/06/21 23:50 05/07/21 00:19 Atorvastatin Calcium 40 Mg Tablet PO 40 mg BEDTIME [facility] Administration Bumetanide 2 mg 05/07/21 09:00 Bumetanide 1 Mg Tablet PO DAILY [facility] Protocol Epinephrine 0.3 mg 05/07/21 00:10 Epinephrine 1 Mg/Ml Vial IM Q10M PRN Anaphylaxis Erythromycin 0 cm 05/07/21 21:00 Erythromycin Base 0.5% Oph Oin 1 Gm Tube EYE-BOTH BEDTIME [facility] Fluticasone/Vilanterol 1 puff 05/07/21 09:00 Fluticasone/Vilanterol 200/25 Blst.W.Dev INHALE DAILY [facility] Ceftriaxone Sodium 1 gm/ 50 mls @ 100 mls/hr 05/07/21 10:00 Sodium Chloride IV Q24H [facility] Latanoprost 1 drop 05/06/21 23:50 05/07/21 00:50 Latanoprost 0.005 % Ophth Elena 2.5 Ml Drops EYE-BOTH Not Given BEDTIME [facility] Melatonin 6 mg 05/06/21 23:44 Melatonin 3 Mg Tablet PO BEDTIME PRN Insomnia Montelukast Sodium 10 mg 05/07/21 21:00 05/07/21 00:33 Montelukast Sodium 10 Mg Tablet PO 10 mg BEDTIME [facility] Administration Multivitamins/Vitamin C 1 tab 05/07/21 09:00 05/07/21 08:14 Multivitamin Tablet PO 1 tab DAILY [facility] Administration Pharmacy Consult 1 each 05/06/21 22:06 Consult Rx Perform Med Rec MISCELLANE ONCE PRN Consult order Sodium Chloride 3 ml 05/07/21 00:00 05/07/21 08:13 0.9 % Sodium Chloride Flush 3 Ml Syringe IVFLUSH 3 ml QSHIFT [facility] Administration Spironolactone 25 mg 05/07/21 09:00 Spironolactone 25 Mg Tablet PO DAILY [facility] Protocol Labs CBC & Chem 7: 05/07/21 07:40 05/06/21 20:06 Labs: Laboratory Results - last 24 hr 05/06/21 05/06/21 05/06/21 20:06 20:06 20:06 WBC 10.1 RBC 3.11 L Hgb 9.8 L Hct 30.3 L MCV 97.4 MCH 31.5 MCHC 32.3 RDW 14.2 Plt Count 88 L MPV 10.9 Immature Gran % (Auto) 0.4 Neut % (Auto) 80.6 H Lymph % (Auto) 8.8 L [place] % (Auto) 8.8 Eos % (Auto) 1.1 Baso % (Auto) 0.3 Lymph # (Auto) 0.9 L [place] # (Auto) 0.9 Eos # (Auto) 0.1 Baso # (Auto) 0.0 Abs Immat Gran (auto) 0.04 H Absolute Neuts (auto) 8.1 Absolute Nucleated RBC 0.000 Nucleated RBC % (auto) 0.0 ESR Sodium 136 Potassium 4.5 Chloride 101 Carbon Dioxide 25 Anion Gap 15 BUN 38 H Creatinine 1.87 H Estim Creat Clear Calc 35.7 Estimated GFR 36 Random Glucose 92 Lactic Acid Calcium 9.0 Total Bilirubin 2.0 H Direct Bilirubin 1.1 H AST 29 ALT 24 Alkaline Phosphatase 213 H Troponin I High Sens 18.4 C-Reactive Protein 0.66 H B-Natriuretic Peptide 745 H Total Protein 7.1 Albumin 4.0 Prealbumin 22.0 COVID-19 (BASHIR) COVID-19 Clin Com 05/06/21 05/06/21 05/06/21 20:06 21:26 23:50 WBC RBC Hgb Hct MCV MCH MCHC RDW Plt Count MPV Immature Gran % (Auto) Neut % (Auto) Lymph % (Auto) [place] % (Auto) Eos % (Auto) Baso % (Auto) Lymph # (Auto) [place] # (Auto) Eos # (Auto) Baso # (Auto) Abs Immat Gran (auto) Absolute Neuts (auto) Absolute Nucleated RBC Nucleated RBC % (auto) ESR Cancelled Sodium Potassium Chloride Carbon Dioxide Anion Gap BUN Creatinine Estim Creat Clear Calc Estimated GFR Random Glucose Lactic Acid 0.9 Calcium Total Bilirubin Direct Bilirubin AST ALT Alkaline Phosphatase Troponin I High Sens C-Reactive Protein B-Natriuretic Peptide Total Protein Albumin Prealbumin COVID-19 (BASHIR) Negative COVID-19 Clin Com See Note 05/06/21 05/06/21 05/07/21 23:50 23:50 07:40 WBC 9.0 RBC 2.94 L Hgb 9.4 L Hct 28.5 L MCV 96.9 MCH 32.0 MCHC 33.0 RDW 14.2 Plt Count 82 L MPV 10.5 Immature Gran % (Auto) 0.3 Neut % (Auto) 82.9 H Lymph % (Auto) 8.2 L [place] % (Auto) 7.5 Eos % (Auto) 0.9 Baso % (Auto) 0.2 Lymph # (Auto) 0.7 L [place] # (Auto) 0.7 Eos # (Auto) 0.1 Baso # (Auto) 0.0 Abs Immat Gran (auto) 0.03 Absolute Neuts (auto) 7.4 Absolute Nucleated RBC 0.000 Nucleated RBC % (auto) 0.0 ESR 23 H Sodium Potassium Chloride Carbon Dioxide Anion Gap BUN Creatinine Estim Creat Clear Calc Estimated GFR Random Glucose Lactic Acid Calcium Total Bilirubin Direct Bilirubin AST ALT Alkaline Phosphatase Troponin I High Sens 16.4 C-Reactive Protein B-Natriuretic Peptide Total Protein Albumin Prealbumin COVID-19 (BASHIR) COVID-19 Clin Com Quality Stroke Does the patient have a stroke diagnosis?: No VTE Prior VTE?: No VTE Risk Level:: Medical - moderate - high VTE Device Contraindication: Treatment Not Indicated VTE Drug Contraindication: Treatment Not Indicated Assessment and Plan (1) Cellulitis of left leg: Status: Acute Assessment and Plan: 71-year-old male with a past medical history of hypertension, hyperlipidemia, CAD status post CABG, carotid artery disease, CHF with EF of 45%, AFib on Eliquis, history of aortic valve replacement, severe mitral and tricuspid regurgitation, liver cirrhosis, portal hypertension, history of esophageal varices, asthma, chronic kidney disease presented to the hospital with a chief complaint of left leg pain redness and swelling. noted to have cellulitis; admitted for further management. 1.Left leg cellulitis: Continue ceftriaxone, pain control Venous duplex and leg access negative for acute findings. 2. chronic CHF/MR/TR: hold Bumex due to low blood pressure. I's and o's and daily weights. Cardiology consult eval appreciated-does not look in overt heart failure will continue home medications.. Etiology of for heart failure unclear since no prior echo available. 3.Hypertension: Patient's blood pressure currently on the soft side. hold home losartan and metoprolol succinate. 4.History of AFib: Rate controlled. Continue home Eliquis. 5.History of glaucoma,: Continue home eye drops. 6.Hyperlipidemia: Continues home statin
--- NOTE | 2021-05-07 10:10 | PC.NURSE ---
per celia walker) pt's meds (bumex and spironolactone) were held 2ndary to pt's manual b/p 95/48-77. pt is asymptomatic. resting in bed and is aware of plan of care.
--- NOTE | 2021-05-07 10:44 | MHC.MBSS ---
pt 's daughter (yamini) called [facility] [place] and was updated on pt status.
--- NOTE | 2021-05-07 10:57 | P.CDIC_ITS ---
CDI Concurrent Query Service Date: 05/07/21 Documentation Clarification: Please clarify if you are treating a proba ble/suspected/likely or confirmed: CHF Type ? Systolic ? Diastolic ? Combined Systolic/Diastolic ? Other-yes ? Unable to Determine Provider Response: Other Other Diagnosis: Patient has chronic CHF, no echo available etiology unclear. PLEASE DO NOT DELETE/MODIFY EXISTING CONTENT Additional information is needed in order to code to the highest accuracy and appropriate Severity of Illness (SOI). Please clarify the information noted below in your progress notes and discharge summary. Risk Factors/Clinical Indicators/Treatments PMH: CHF BNP 745 CXR: Cardiomegaly H&P: Mild Acute on Chronic CHF Oral Bumex CDS: Gertrude Hu RN Contact Number: [phone] Please Review the information above and exercise your independent professional judgment in responding to the query. If you concur, pleas document in the PROGRESS NOTES and DISCHARGE SUMMARY. If you do not agree with the query, please document in the query above. THIS QUERY IS PART OF THE PERMANENT MEDICAL RECORD
--- NOTE | 2021-05-07 11:03 | P.CDIC_ITS ---
CDI Concurrent Query Service Date: 05/07/21 Documentation Clarification: Please clarify if you are treating a proba ble/suspected/likely or confirmed: CKD: Level Description GFR G1 Normal or High > 90 G2 Mildly decreased 60 ? 89 G3a Mildly to moderately decreased 45 ? 59 G3b Moderately to severely decreased 30 - 44 G4 Severely decreased 15 ? 29 G5 Kidney failure < 15 Stages of Chronic Kidney Disease* Provider Response: CKD Stage 3 PLEASE DO NOT DELETE/MODIFY EXISTING CONTENT Additional information is needed in order to code to the highest accuracy and appropriate Severity of Illness (SOI). Please clarify the information noted below in your progress notes and discharge summary. Risk Factors/Clinical Indicators/Treatments PMH: CKD BUN 38 Creatinine 1.87 On 04/15/21: BUN 32, Creatinine 1.63 CDS: Gertrude Hu RN Contact Number: [phone] Please Review the information above and exercise your independent professional judgment in responding to the query. If you concur, pleas document in the PROGRESS NOTES and DISCHARGE SUMMARY. If you do not agree with the query, please document in the query above. THIS QUERY IS PART OF THE PERMANENT MEDICAL RECORD
[2021-05-07] MEDS: cefTRIAXone sodium 1 GM in 0.9 % Sodium Chloride 50 ML IV (11:07)
[2021-05-07] MEDS: Ascorbic Acid 500 MG TABLET 1000 MG PO (11:41)
--- NOTE | 2021-05-07 12:10 | P.CONCA_ITS ---
History of Present Illness History of Present Illness Date of Service: 05/07/21 Requesting physician: Teo Blank Consult reason: congestive heart failure Chief complaint: Left leg cellulitis Narrative: I was requested to see Sadi in cardiology consultation for multiple cardiac issues. Patient present with left leg pain and noted to have cellulitis. During the workup noted to have elevated BNP and was start to be in decompensated congestive heart failure. Patient are denies any recent significant weight gain, leg edema, shortness of breath, orthopnea, PND. He says he does get exertional shortness of breath especially in heart humid weather. He has also occasionally gets leg edema. Denies any chest pain. He has prior cardiac history of coronary artery bypass grafting as well as aortic valve replacement 2014 with LVEF of 45% as per the chart and history of heart failure with mitral and tricuspid regurgitation. Also has history of cirrhosis of the liver. Currently denying any cardiac symptoms. Noted to have lower blood pressure and some of his medications have been withheld. He is not the best of historian. Will try to obtain old records from his operating engineer's Dr. Wilson's office. Review of Systems Constitutional: Constitutional: Reports no additional constitutional complaint s Cardiovascular: Cardiovascular: Reports no additional cardiovascular complaints Respiratory: Respiratory: Reports no additional respiratory complaints Gastrointestinal: Gastrointestinal: Reports no additional gastrointestinal complaints Genitourinary: Genitourinary: Reports no additional male genitourinary complaints Integumentary/Breasts: Skin/Breast: Reports erythema and Reports skin pain Neurologic: Reports system reviewed and no additional complaints, except as documented PMF Past Medical History Medical History (Updated 05/07/21 @ 12:28 by [place] Larry MD) Afib Asthma CHF (congestive heart failure) CKD (chronic kidney disease) Headache Hx of carotid stenosis Hypertension Mitral valve regurgitation On anticoagulant therapy On beta juana at home Tricuspid valve regurgitation Surgical History Surgical History H/O aortic valve repair (~2014) History of decompression of ulnar nerve History of detached retina repair History 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) Social History Social History Alcohol intake: never Patient Tobacco Use Status: Never used Tobacco Use of substances other than those prescribed or required for medical reasons: No Advance Directives: No Advance Directives Information Provided: Yes Meds Allergies Allergy/AdvReac Type Severity Reaction Status Date / Time adhesive Allergy Severe Hives Verified 05/06/21 19:55 CASHEWS Allergy Severe Anaphylaxis Uncoded 05/06/21 19:55 peanuts Allergy Severe Anaphylaxis Uncoded 05/06/21 19:55 Active Medications: Current Medications Generic Name Dose Route Start Last Admin Trade Name Freq PRN Reason Stop Dose Admin Albuterol Sulfate 2 puff 05/07/21 09:00 05/07/21 07:58 Albuterol Sulfate 90 Mcg 8 Gm Inhaler INHALE Not Given DAILY JOAN Apixaban 5 mg 05/06/21 23:50 05/07/21 08:14 Apixaban 5 Mg Tablet PO 5 mg BID JOAN Administration Ascorbic Acid 1,000 mg 05/07/21 12:00 05/07/21 11:41 Ascorbic Acid 500 Mg Tablet PO 1,000 mg DAILY@12 JOAN Administration Atorvastatin Calcium 40 mg 05/06/21 23:50 05/07/21 00:19 Atorvastatin Calcium 40 Mg Tablet PO 40 mg BEDTIME JOAN Administration Bumetanide 2 mg 05/07/21 09:00 05/07/21 10:08 Bumetanide 1 Mg Tablet PO Not Given DAILY [facility] Protocol Epinephrine 0.3 mg 05/07/21 00:10 Epinephrine 1 Mg/Ml Vial IM Q10M PRN Anaphylaxis Erythromycin 0 cm 05/07/21 21:00 Erythromycin Base 0.5% Oph Oin 1 Gm Tube EYE-BOTH BEDTIME JOAN Fluticasone/Vilanterol 1 puff 05/07/21 09:00 05/07/21 09:29 Fluticasone/Vilanterol 200/25 Blst.W.Dev INHALE Not Given DAILY [facility] Ceftriaxone Sodium 1 gm/ 50 mls @ 100 mls/hr 05/07/21 10:00 05/07/21 11:07 Sodium Chloride IV 100 mls/hr Q24H JOAN Administration Latanoprost 1 drop 05/06/21 23:50 05/07/21 00:50 Latanoprost 0.005 % Ophth Elena 2.5 Ml Drops EYE-BOTH Not Given BEDTIME JOAN Melatonin 6 mg 05/06/21 23:44 Melatonin 3 Mg Tablet PO BEDTIME PRN Insomnia Montelukast Sodium 10 mg 05/07/21 21:00 05/07/21 00:33 Montelukast Sodium 10 Mg Tablet PO 10 mg BEDTIME JOAN Administration Multivitamins/Vitamin C 1 tab 05/07/21 09:00 05/07/21 08:14 Multivitamin Tablet PO 1 tab DAILY JOAN Administration Pharmacy Consult 1 each 05/06/21 22:06 Consult Rx Perform Med Rec MISCELLANE ONCE PRN Consult order Sodium Chloride 3 ml 05/07/21 00:00 05/07/21 08:13 0.9 % Sodium Chloride Flush 3 Ml Syringe IVFLUSH 3 ml QSHIFT [facility] Administration Spironolactone 25 mg 05/07/21 09:00 05/07/21 10:08 Spironolactone 25 Mg Tablet PO Not Given DAILY [facility] Protocol Home Medications Medication Instructions Recorded Confirmed Last Taken Type albuterol sulfate [Proventil HFA] 2 puff INHALATION DAILY 04/08/21 05/06/21 05/06/21 History apixaban [Eliquis] 1 tab PO BID 04/08/21 05/06/21 05/06/21 History ascorbic acid (vitamin C) [Vitamin 1,000 mg PO DAILY@12 04/08/21 05/06/21 05/05/21 History C] atorvastatin 1 tab PO BEDTIME 04/08/21 05/06/21 05/05/21 History budesonide-formoterol [Symbicort] 2 puff INHALATION BID 04/08/21 05/06/21 05/06/21 History bumetanide 2 mg PO DAILY 04/08/21 05/06/21 05/06/21 History epinephrine 0.3 mg IM Q10M PRN 04/08/21 05/06/21 Unknown History hawthorn green 450 mg PO BEDTIME 04/08/21 05/06/21 05/05/21 History lactobacillus combination no.4 3,000 mmu cells PO DAILY@12 04/08/21 05/06/21 History [Probiotic] latanoprost 1 drp OPHTHALMIC (EYE) BEDTIME 04/08/21 05/06/21 05/05/21 History losartan 1 tab PO DAILY 04/08/21 05/06/21 05/05/21 History metoprolol succinate 1 tab PO Q12H 04/08/21 05/06/21 05/06/21 History [id number] oil [Fish 1 cap PO BEDTIME 04/08/21 05/06/21 05/05/21 History Oil] spironolactone 1 tab PO DAILY 04/08/21 05/06/21 05/06/21 History erythromycin 1 appl OPHTHALMIC (EYE) BEDTIME 05/06/21 05/06/21 05/05/21 History garlic 1,000 mg PO DAILY@12 05/06/21 05/06/21 05/05/21 History montelukast 1 tab PO BEDTIME 05/06/21 05/06/21 05/05/21 History multivitamin 1 tab PO DAILY 05/06/21 05/06/21 05/06/21 History Physical Exam Vital Signs: Vital Signs: Last Vital Signs Temp 99.2 F 05/07/21 07:45 Pulse 102 H 05/07/21 11:12 Resp 18 05/07/21 11:12 BP 112/69 05/07/21 11:12 Pulse Ox 96 05/07/21 11:12 Body Mass Index 28.0 Const: General: cooperative, comfortable, no acute distress, alert and awake Nutritional Appearance: average body habitus Orientation/consciousness: patient oriented x3 HENMT: Head: Yes normocephalic and Yes atraumatic Neck: Neck: Yes trachea midline, Yes supple and Yes no JVD Resp: Effort & Inspection: normal respiratory effort Cardio: Jugular venous distension: no JVD Rhythm: abnormal rhythm irregularly irregular Heart sounds: S1 normal heart sound present and S2 normal heart sound present GI: Auscultation: normal bowel sounds Skin: General skin exam: other (Cellulitis of the left lower extremity noted) Neuro: General: patient oriented x3 and no focal motor deficits Extrem: General: Yes no clubbing, cyanosis or edema Results Labs and Meds Result diagrams: 05/07/21 07:40 05/06/21 20:06 Lab results: Laboratory Results - last 24 hr 05/06/21 05/06/21 05/06/21 20:06 20:06 20:06 WBC 10.1 RBC 3.11 L Hgb 9.8 L Hct 30.3 L MCV 97.4 MCH 31.5 MCHC 32.3 RDW 14.2 Plt Count 88 L MPV 10.9 Immature Gran % (Auto) 0.4 Neut % (Auto) 80.6 H Lymph % (Auto) 8.8 L Hettinger % (Auto) 8.8 Eos % (Auto) 1.1 Baso % (Auto) 0.3 Lymph # (Auto) 0.9 L Hettinger # (Auto) 0.9 Eos # (Auto) 0.1 Baso # (Auto) 0.0 Abs Immat Gran (auto) 0.04 H Absolute Neuts (auto) 8.1 Absolute Nucleated RBC 0.000 Nucleated RBC % (auto) 0.0 ESR Sodium 136 Potassium 4.5 Chloride 101 Carbon Dioxide 25 Anion Gap 15 BUN 38 H Creatinine 1.87 H Estim Creat Clear Calc 35.7 Estimated GFR 36 Random Glucose 92 Lactic Acid Calcium 9.0 Total Bilirubin 2.0 H Direct Bilirubin 1.1 H AST 29 ALT 24 Alkaline Phosphatase 213 H Troponin I High Sens 18.4 C-Reactive Protein 0.66 H B-Natriuretic Peptide 745 H Total Protein 7.1 Albumin 4.0 Prealbumin 22.0 COVID-19 (BASHIR) COVID-[employer] 05/06/21 05/06/21 05/06/21 20:06 21:26 23:50 WBC RBC Hgb Hct MCV MCH MCHC RDW Plt Count MPV Immature Gran % (Auto) Neut % (Auto) Lymph % (Auto) Hettinger % (Auto) Eos % (Auto) Baso % (Auto) Lymph # (Auto) Hettinger # (Auto) Eos # (Auto) Baso # (Auto) Abs Immat Gran (auto) Absolute Neuts (auto) Absolute Nucleated RBC Nucleated RBC % (auto) ESR Cancelled Sodium Potassium Chloride Carbon Dioxide Anion Gap BUN Creatinine Estim Creat Clear Calc Estimated GFR Random Glucose Lactic Acid 0.9 Calcium Total Bilirubin Direct Bilirubin AST ALT Alkaline Phosphatase Troponin I High Sens C-Reactive Protein B-Natriuretic Peptide Total Protein Albumin Prealbumin COVID-19 (BASHIR) Negative COVID-[employer] See Note 05/06/21 05/06/21 05/07/21 23:50 23:50 07:40 WBC 9.0 RBC 2.94 L Hgb 9.4 L Hct 28.5 L MCV 96.9 MCH 32.0 MCHC 33.0 RDW 14.2 Plt Count 82 L MPV 10.5 Immature Gran % (Auto) 0.3 Neut % (Auto) 82.9 H Lymph % (Auto) 8.2 L Hettinger % (Auto) 7.5 Eos % (Auto) 0.9 Baso % (Auto) 0.2 Lymph # (Auto) 0.7 L Hettinger # (Auto) 0.7 Eos # (Auto) 0.1 Baso # (Auto) 0.0 Abs Immat Gran (auto) 0.03 Absolute Neuts (auto) 7.4 Absolute Nucleated RBC 0.000 Nucleated RBC % (auto) 0.0 ESR 23 H Sodium Potassium Chloride Carbon Dioxide Anion Gap BUN Creatinine Estim Creat Clear Calc Estimated GFR Random Glucose Lactic Acid Calcium Total Bilirubin Direct Bilirubin AST ALT Alkaline Phosphatase Troponin I High Sens 16.4 C-Reactive Protein B-Natriuretic Peptide Total Protein Albumin Prealbumin COVID-19 (BASHIR) COVID-19 Clin Com EKG shows atrial fibrillation with controlled ventricular response with nonspecific ST changes Imaging Radiologist's impression: Impressions Venous Duplex 05/06/21 20:35 IMPRESSION: No DVT demonstrated in the left lower extremity. Chest X-Ray 05/06/21 20:50 IMPRESSION: No acute abnormality of chest. Cardiomegaly. Tibia/Fibula X-Ray 05/06/21 22:07 IMPRESSION: Anterior soft tissue swelling in the infrapatellar region. No acute osseous findings. Assessment and Plan (1) Cellulitis of left leg: Status: Acute Patient presents with cellulitis of left leg. Continue aggressive tr eatment for the same. Will follow blood cultures. If there is any abnormality with positive blood cultures may require MARKUS to evaluate his prosthetic aortic valve. (2) Afib: Status: Acute Atrial fibrillation currently rate controlled without any rate lowering medications. Continue rate control approach. Not sure as to the duration of his atrial fibrillation. Currently on full oral anticoagulation with Eliquis 5 mg b.i.d., continue the same. (3) CHF (congestive heart failure): Status: Acute Prior history of congestive heart failure on Bumex and spironolactone therapy. Clinically today does not appear to be in overt heart failure. Elevated BNP could be is baseline and not necessarily acute exacerbation. Continue to watch for CHF. Avoid salt loading. His BUN creatinine elevated, and should be followed closely. Will obtain old records. Avoid any IV diuresis at this point in time. Procedures Date of Service Date of Service: 05/07/21
--- NOTE | 2021-05-07 12:37 | PC.NURSE ---
dr. george at bedside pt aware of plan of care.
--- NOTE | 2021-05-07 13:21 | MHC.CM.PN ---
CM MET WITH PT WHO REPORTS HE LIVES WITH HIS , DAUGHTER AND TWO CATS. HE REPORTS BEING INDEPENDENT WITH CARE AND USING A CANE FOR MOBILITY. PT DENIES HAVING ANY IN HOME SERVICES. PT HAS A POA ON FILE. PT REPORTS HE DOES NOT KNOW THE NAME OF HIS PCP BUT HE GOES TO [facility] IN [place]. IMM DELIVERED AND SENT TO [facility] CURRENT DC PLAN IS HOME WITH NO SERVICES FAMILY TO TRANSPORT
[2021-05-07] MEDS: Erythromycin Base 0.5% Oph Oin 1 GM TUBE EYE-BOTH (20:28)
[2021-05-07] MEDS: Latanoprost 0.005 % Ophth Sol 2.5 ML DROPS 1 DROP EYE-BOTH (20:28)
[2021-05-07] MEDS: Acetaminophen 325 MG TABLET 650 MG PO (21:20)
[2021-05-08] VITALS (9 sets, daily range): BP systolic 96–119; BP diastolic 56–71; PULSE 84–113; RESP 16–19; TEMP 36.5–37.2; O2SAT 96–99
[2021-05-08] MEDS: 0.9 % Sodium Chloride Flush 3 ML SYRINGE IVFLUSH ×4 (00:48→23:50)
[2021-05-08] MEDS: Bumetanide 1 MG TABLET 2 MG PO (09:23)
[2021-05-08] MEDS: Apixaban 5 MG TABLET PO ×2 (09:23→20:27)
[2021-05-08] MEDS: Spironolactone 25 MG TABLET PO (09:23)
[2021-05-08] MEDS: Multivitamin TABLET 1 TAB PO (09:23)
[2021-05-08] MEDS: cefTRIAXone sodium 1 GM in 0.9 % Sodium Chloride 50 ML IV (09:23)
--- NOTE | 2021-05-08 11:55 | MHC.CM.PN ---
EMR REVIEWED, PER HOSPITALIST NO PLAN FOR D/C TODAY, ANTICIPATE W/E D/C HOME SELF-CARE W/FAMILY FOR TRANSPORT.
[2021-05-08] MEDS: Ascorbic Acid 500 MG TABLET 1000 MG PO (15:01)
--- NOTE | 2021-05-08 16:00 | P.CNID_ITS ---
History of Present Illness Data of Consult Service Date: 05/08/21 Requesting physician: Marcie Saini Primary Care Provider: MAXIMINO Ryan HPI Reason for consult: left leg cellulitis He presents 2-3 days redness and swelling leg He has decreasing redness He has no nausea or vomiting Review of Systems Review of Systems: Yes all other systems are reviewed and are negative PMFSH Past Medical History Medical History Afib Asthma CHF (congestive heart failure) CKD (chronic kidney disease) Headache Hx of carotid stenosis Hypertension Mitral valve regurgitation On anticoagulant therapy On beta juana at home Tricuspid valve regurgitation Family History Family history: reviewed and not pertinent Surgical History Surgical History H/O aortic valve repair (~2014) History of decompression of ulnar nerve History of detached retina repair History 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) Social History Social History Household Members: None Housing: House Do you presently have visiting nurse or other home services: No Alcohol intake: never Patient Tobacco Use Status: Never used Tobacco Current occupational status: retired Meds Allergies Allergy/AdvReac Type Severity Reaction Status Date / Time adhesive Allergy Severe Hives Verified 05/06/21 19:55 CASHEWS Allergy Severe Anaphylaxis Uncoded 05/06/21 19:55 peanuts Allergy Severe Anaphylaxis Uncoded 05/06/21 19:55 Active Medications: Current Medications Generic Name Dose Route Start Last Admin Trade Name Patty PRN Reason Stop Dose Admin Albuterol Sulfate 2 puff 05/07/21 09:00 05/08/21 07:50 Albuterol Sulfate 90 Mcg 8 Gm Inhaler INHALE Not Given DAILY JOAN Apixaban 5 mg 05/06/21 23:50 05/08/21 09:23 Apixaban 5 Mg Tablet PO 5 mg BID JOAN Administration Ascorbic Acid 1,000 mg 05/07/21 12:00 05/08/21 15:01 Ascorbic Acid 500 Mg Tablet PO 1,000 mg DAILY@12 JOAN Administration Atorvastatin Calcium 40 mg 05/06/21 23:50 05/07/21 20:28 Atorvastatin Calcium 40 Mg Tablet PO 40 mg BEDTIME JOAN Administration Bumetanide 2 mg 05/07/21 09:00 05/08/21 09:23 Bumetanide 1 Mg Tablet PO 2 mg DAILY [facility] Administration Protocol Epinephrine 0.3 mg 05/07/21 00:10 Epinephrine 1 Mg/Ml Vial IM Q10M PRN Anaphylaxis Erythromycin 0 cm 05/07/21 21:00 05/07/21 20:28 Erythromycin Base 0.5% Oph Oin 1 Gm Tube EYE-BOTH 1 cm BEDTIME JOAN Administration Ceftriaxone Sodium 1 gm/ 50 mls @ 100 mls/hr 05/07/21 10:00 05/08/21 10:10 Sodium Chloride IV Infused Q24H JOAN Infusion Latanoprost 1 drop 05/06/21 23:50 05/07/21 20:28 Latanoprost 0.005 % Ophth Elena 2.5 Ml Drops EYE-BOTH 1 drop BEDTIME JOAN Administration Melatonin 6 mg 05/06/21 23:44 Melatonin 3 Mg Tablet PO BEDTIME PRN Insomnia Metoprolol Tartrate 12.5 mg 05/08/21 13:00 05/08/21 14:04 Metoprolol Tartrate 12.5 Mg Halftab PO Not Given QID [facility] Protocol Montelukast Sodium 10 mg 05/07/21 21:00 05/07/21 20:28 Montelukast Sodium 10 Mg Tablet PO 10 mg BEDTIME [facility] Administration Multivitamins/Vitamin C 1 tab 05/07/21 09:00 05/08/21 09:23 Multivitamin Tablet PO 1 tab DAILY JOAN Administration Non-Formulary Medication 1 each 05/08/21 21:00 Non-Formulary Medication INHALE BID [facility] Pharmacy Consult 1 each 05/06/21 22:06 Consult Rx Perform Med Rec MISCELLANE ONCE PRN Consult order Sodium Chloride 3 ml 05/07/21 00:00 05/08/21 15:01 0.9 % Sodium Chloride Flush 3 Ml Syringe IVFLUSH 3 ml QSHIFT [facility] Administration Spironolactone 25 mg 05/07/21 09:00 05/08/21 09:23 Spironolactone 25 Mg Tablet PO 25 mg DAILY [facility] Administration Protocol Home Medications Medication Instructions Recorded Confirmed Last Taken Type albuterol sulfate [Proventil HFA] 2 puff INHALATION DAILY 04/08/21 05/06/21 05/06/21 History apixaban [Eliquis] 1 tab PO BID 06/23/21 07/21/21 07/21/21 History ascorbic acid (vitamin C) [Vitamin 1,000 mg PO DAILY@12 04/08/21 05/06/21 05/05/21 History C] atorvastatin 1 tab PO BEDTIME 04/08/21 05/06/21 05/05/21 History budesonide-formoterol [Symbicort] 2 puff INHALATION BID 04/08/21 05/06/21 05/06/21 History bumetanide 2 mg PO DAILY 04/08/21 05/06/21 05/06/21 History epinephrine 0.3 mg IM Q10M PRN 04/08/21 05/06/21 Unknown History hawthorn green 450 mg PO BEDTIME 04/08/21 05/06/21 05/05/21 History lactobacillus combination no.4 3,000 mmu cells PO DAILY@12 04/08/21 05/06/21 05/05/21 History [Probiotic] latanoprost 1 drp OPHTHALMIC (EYE) BEDTIME 04/08/21 05/06/21 05/05/21 History losartan 1 tab PO DAILY 04/08/21 05/06/21 05/05/21 History metoprolol succinate 1 tab PO Q12H 04/08/21 05/06/21 05/06/21 History [id number]-fish oil [Fish 1 cap PO BEDTIME 04/08/21 05/06/21 05/05/21 History Oil] spironolactone 1 tab PO DAILY 04/08/21 05/06/21 05/06/21 History erythromycin 1 appl OPHTHALMIC (EYE) BEDTIME 05/06/21 05/06/21 05/05/21 History garlic 1,000 mg PO DAILY@12 05/06/21 05/06/21 05/05/21 History montelukast 1 tab PO BEDTIME 05/06/21 05/06/21 05/05/21 History multivitamin 1 tab PO DAILY 05/06/21 05/06/21 05/06/21 History Physical Exam Vital Signs: Vital Signs: Last Vital Signs Temp 98.2 F 05/08/21 15:21 Pulse 107 H 05/08/21 15:21 Resp 19 05/08/21 15:21 BP 105/56 L 05/08/21 15:21 Pulse Ox 97 05/08/21 15:21 Body Mass Index 28.0 Const: General: cooperative HENMT: Head: Yes normal to inspection Mouth: Normal oral and palatal mucosa present Resp: Effort & Inspection: normal respiratory effort Cardio: Rate: regular rate Rhythm: regular rhythm GI: Palpation (GI): Soft to palpation and nontender Skin: General skin exam: no rashes or lesions noted Extrem: Other: decreasing LLE redness Results Labs CBC & Chem 7: 05/07/21 07:40 05/06/21 20:06 Microbiology Microbiology Results: Microbiology 05/06/21 21:42 Blood - Venous Blood Culture - Preliminary No growth after 24 hours. 05/06/21 21:26 Blood - Venous Blood Culture - Preliminary No growth after 24 hours. Assessment and Plan (1) Cellulitis of left leg: Status: Acute He has possible strep or MSSA infection It is responding to Ceftriaxone Suggest Would give po Ceftin 500 mg bid for one week for outpatient
--- NOTE | 2021-05-08 19:16 | P.PNIM_ITS ---
Subjective Subjective Date of Service: 05/08/21 Interval History: afib -hr was in 110-140, cellulitis Review of Systems Patient denies any chest pain or shortness of breath or abdominal pain or fever chills Leg erythema seems improving Physical Exam Vital Signs: Vital Signs: Last Vital Signs Temp 98.2 F 05/08/21 15: Pulse 107 H 05/08/21 15:21 Resp 19 05/08/21 15:21 BP 105/56 L 05/08/21 15: Pulse Ox 97 05/08/21 15: Body Mass Index 28.0 Physical exam: Cvs: rrr, [id number] , no murmur res: clear to auscultation ,no rhonchii or wheezing abd: no rebound or guarding ,nt, bs present. ext pulses present , no cyanosis, has left leg edema >right Erythema of floor foot and leg, no fluctuation or any ulcers neuro: axo3 , nonfocal. Objective Data Current Medications Generic Name Dose Route Start Last Admin Trade Name Freq PRN Reason Stop Dose Admin Albuterol Sulfate 2 puff 05/07/21 09:00 05/08/21 07:50 Albuterol Sulfate 90 Mcg 8 Gm Inhaler INHALE Not Given DAILY JOAN Apixaban 5 mg 05/06/21 23:50 05/08/21 09:23 Apixaban 5 Mg Tablet PO 5 mg BID JOAN Administration Ascorbic Acid 1,000 mg 05/07/21 12:00 05/08/21 15:01 Ascorbic Acid 500 Mg Tablet PO 1,000 mg DAILY@12 JOAN Administration Atorvastatin Calcium 40 mg 05/06/21 23:50 05/07/21 20:28 Atorvastatin Calcium 40 Mg Tablet PO 40 mg BEDTIME JOAN Administration Bumetanide 2 mg 05/07/21 09:00 05/08/21 09:23 Bumetanide 1 Mg Tablet PO 2 mg DAILY JOAN Administration Protocol Epinephrine 0.3 mg 05/07/21 00:10 Epinephrine 1 Mg/Ml Vial IM Q10M PRN Anaphylaxis Erythromycin 0 cm 05/07/21 21:00 05/07/21 20:28 Erythromycin Base 0.5% Oph Oin 1 Gm Tube EYE-BOTH 1 cm BEDTIME JOAN Administration Ceftriaxone Sodium 1 gm/ 50 mls @ 100 mls/hr 05/07/21 10:00 05/08/21 10:10 Sodium Chloride IV Infused Q24H JOAN Infusion Latanoprost 1 drop 05/06/21 23:50 05/07/21 20:28 Latanoprost 0.005 % Ophth Elena 2.5 Ml Drops EYE-BOTH 1 drop BEDTIME JOAN Administration Melatonin 6 mg 05/06/21 23:44 Melatonin 3 Mg Tablet PO BEDTIME PRN Insomnia Metoprolol Tartrate 12.5 mg 05/08/21 13:00 05/08/21 16:35 Metoprolol Tartrate 12.5 Mg Halftab PO Not Given QID [facility] Protocol Montelukast Sodium 10 mg 05/07/21 21:00 05/07/21 20:28 Montelukast Sodium 10 Mg Tablet PO 10 mg BEDTIME JOAN Administration Multivitamins/Vitamin C 1 tab 05/07/21 09:00 05/08/21 09:23 Multivitamin Tablet PO 1 tab DAILY JOAN Administration Patient Own 1 each 05/08/21 21:00 Medication ( INHALE Symbicort) BID [facility] Pharmacy Consult 1 each 05/06/21 22:06 Consult Rx Perform Med Rec MISCELLANE ONCE PRN Consult order Sodium Chloride 3 ml 05/07/21 00:00 05/08/21 15:01 0.9 % Sodium Chloride Flush 3 Ml Syringe IVFLUSH 3 ml QSHIFT [facility] Administration Spironolactone 25 mg 05/07/21 09:00 05/08/21 09:23 Spironolactone 25 Mg Tablet PO 25 mg DAILY JOAN Administration Protocol Labs CBC & Chem 7: 05/07/21 07:40 05/06/21 20:06 Microbiology Microbiology Results: Microbiology 05/06/21 21:42 Blood Culture - Preliminary Blood - Venous No growth after 24 hours. 05/06/21 21:26 Blood Culture - Preliminary Blood - Venous No growth after 24 hours. Quality Stroke Does the patient have a stroke diagnosis?: No VTE Prior VTE?: No VTE Risk Level:: Medical - moderate - high VTE Device Contraindication: Treatment Not Indicated VTE Drug Contraindication: Treatment Not Indicated Assessment and Plan (1) Cellulitis of left leg: Status: Acute (2) CHF (congestive heart failure): Status: Acute Assessment and Plan: 71-year-old male with a past medical history of hypertension, hyperlipidemia, CAD status post CABG, carotid artery disease, CHF with EF of 45%, AFib on Eliquis, history of aortic valve replacement, severe mitral and tricuspid regu rgitation, liver cirrhosis, portal hypertension, history of esophageal varices, asthma, chronic kidney disease presented to the hospital with a chief complaint of left leg pain redness and swelling. noted to have cellulitis; admitted for further management. 1.Left leg cellulitis: Continue ceftriaxone, pain control blod cultures prelimiary negative Venous duplex and leg access negative for acute findings. 2. chronic CHF/MR/TR: hold Bumex due to low blood pressure. I's and o's and daily weights. As per [facility] records: Patient echo shows EF of 50- 55% No regional was more abnormalities also severe functional mitral regurgitation, as well as severe tricuspid regurgitation Patient is back on his Bumex and spironolactone We will add back his losartan as per BMP and if his blood pressure allows in the morning. In addition patient's intervention sod cutter as per family Dr. Poncho Price ([phone]): Is planning to transfer the patient-to [facility]-family is reaching out to him, will wait for sod cutter to call back to dicuss the need of transfer, because patient is already seeing Cardiology here. 3.Hypertension: Patient's blood pressure currently on the soft side. hold home losartan and metoprolol succinate. 4.History of AFib: Rate controlled. Continue home Eliquis. 5. ckd: Paperwork from the family([facility]): Creatinine was in 1.8 range in 2015 and from 2018 it was running about 1.2-1.5 until 2020 and even 1.8 in 202 recently' will add nephro since unclear ckd baseline 5.History of glaucoma,: Continue home eye drops. 6.Hyperlipidemia: Continues home statin
[2021-05-08] MEDS: Latanoprost 0.005 % Ophth Sol 2.5 ML DROPS 1 DROP EYE-BOTH (20:04)
[2021-05-08 20:14] LABS: Anion Gap 13 (12-20); Blood Urea Nitrogen 24 mg/dL (9-16); Calcium 8.5 mg/dL (8.4-10.2); Carbon Dioxide 26 mmol/L (22-29); Chloride 101 mmol/L (96-108); Creatinine Clr Calc Pharmacy 43.7; Estimated Glomerular Filt Rate 45; Glucose Random 137 mg/dL (60-115); Potassium 3.6 mmol/L (3.3-5.1); Sodium 136 mmol/L (135-145)
[2021-05-08] MEDS: Montelukast Sodium 10 MG TABLET PO (20:27)
[2021-05-08] MEDS: Metoprolol Tartrate 12.5 MG HALFTAB PO (20:27)
[2021-05-08] MEDS: Atorvastatin Calcium 40 MG TABLET PO (20:27)
[2021-05-08] MEDS: Erythromycin Base 0.5% Oph Oin 1 GM TUBE EYE-BOTH (21:54)
[2021-05-09] VITALS (9 sets, daily range): BP systolic 99–126; BP diastolic 55–77; PULSE 82–121; RESP 18; TEMP 36.7–37.4; O2SAT 98–100; BMI 28.0
[2021-05-09 09:53] LABS: Anion Gap 14 (12-20); Blood Urea Nitrogen 22 mg/dL (9-16); Calcium 8.7 mg/dL (8.4-10.2); Carbon Dioxide 24 mmol/L (22-29); Chloride 101 mmol/L (96-108); Creatinine Clr Calc Pharmacy 45.5; Estimated Glomerular Filt Rate 47; Glucose Random 164 mg/dL (60-115); Potassium 3.7 mmol/L (3.3-5.1); Sodium 135 mmol/L (135-145)
[2021-05-09 10:05] LABS: B Type Natriuretic Peptide 644 pg/mL (<100)
[2021-05-09] MEDS: Spironolactone 25 MG TABLET PO (11:06)
[2021-05-09] MEDS: 0.9 % Sodium Chloride Flush 3 ML SYRINGE IVFLUSH ×2 (11:06→16:23)
[2021-05-09] MEDS: Apixaban 5 MG TABLET PO (11:07)
[2021-05-09] MEDS: Ascorbic Acid 500 MG TABLET 1000 MG PO (11:07)
[2021-05-09] MEDS: Metoprolol Tartrate 25 MG TABLET PO ×2 (11:07→16:23)
[2021-05-09] MEDS: Multivitamin TABLET 1 TAB PO (11:07)
[2021-05-09] MEDS: Bumetanide 1 MG TABLET 2 MG PO (11:08)
[2021-05-09] MEDS: cefTRIAXone sodium 1 GM in 0.9 % Sodium Chloride 50 ML IV (11:08)
[2021-05-09 15:02] LABS: Leukocytes Stool Qualitative FEW: < 2/OIF (NEGATIVE)
[2021-05-09 15:05] LABS: CDiff Gene PCR NEGATIVE (Negative)
--- NOTE | 2021-05-09 16:31 | HO.PM.IMPN ---
Subjective Subjective Date of Service: 05/09/21 Interval History: ckd, cellulitis Review of Systems Patient denies any new complaint, cellulitis area slowly improving, had 1 episode of diarrhea No abdominal pain or fever or chills or nausea or vomiting. Denies any shortness of breath or any weakness or numbness Physical Exam Vital Signs: Vital Signs: Last Vital Signs Temp 98.1 F 05/09/21 15: Pulse 91 05/09/21 16:23 Resp 18 05/09/21 15:21 BP 126/77 05/09/21 16:23 Pulse Ox 99 05/09/21 15:21 Body Mass Index 28.0 Cvs: rrr, [id number] , no murmur res: clear to auscultation ,no rhonchii or wheezing abd: no rebound or guarding ,nt, bs present. ext pulses present , no cyanosis, has left leg edema >right Erythema of floor foot and leg seems improving, no fluctuation or any ulcers neuro: axo3 , nonfocal. Objective Data Current Medications Generic Name Dose Route Start Last Admin Trade Name Demetriusq PRN Reason Stop Dose Admin Apixaban 5 mg 05/06/21 23:50 05/09/21 11:07 Apixaban 5 Mg Tablet PO 5 mg BID JOAN Administration Ascorbic Acid 1,000 mg 05/07/21 12:00 05/09/21 11:07 Ascorbic Acid 500 Mg Tablet PO 1,000 mg DAILY@12 JOAN Administration Atorvastatin Calcium 40 mg 05/06/21 23:50 05/08/21 20:27 Atorvastatin Calcium 40 Mg Tablet PO 40 mg BEDTIME JOAN Administration Bumetanide 2 mg 05/07/21 09:00 05/09/21 11:08 Bumetanide 1 Mg Tablet PO 2 mg DAILY JOAN Administration Protocol Epinephrine 0.3 mg 05/07/21 00:10 Epinephrine 1 Mg/Ml Vial IM Q10M PRN Anaphylaxis Erythromycin 0 cm 05/07/21 21:00 05/08/21 21:54 Erythromycin Base 0.5% Oph Oin 1 Gm Tube EYE-BOTH 1 cm BEDTIME JOAN Administration Ceftriaxone Sodium 1 gm/ 50 mls @ 100 mls/hr 05/07/21 10:00 05/09/21 11:57 Sodium Chloride IV Infused Q24H JOAN Infusion Latanoprost 1 drop 05/06/21 23:50 05/08/21 20:04 Latanoprost 0.005 % Ophth Elena 2.5 Ml Drops EYE-BOTH 1 drop BEDTIME JOAN Administration Melatonin 6 mg 05/06/21 23:44 Melatonin 3 Mg Tablet PO BEDTIME PRN Insomnia Metoprolol Tartrate 25 mg 05/09/21 09:00 05/09/21 16:23 Metoprolol Tartrate 25 Mg Tablet PO 25 mg QID JOAN Administration Protocol Montelukast Sodium 10 mg 05/07/21 21:00 05/08/21 20:27 Montelukast Sodium 10 Mg Tablet PO 10 mg BEDTIME JOAN Administration Multivitamins/Vitamin C 1 tab 05/07/21 09:00 05/09/21 11:07 Multivitamin Tablet PO 1 tab DAILY JOAN Administration Patient Own 1 each 05/08/21 21:00 05/09/21 08:08 Medication ( INHALE 1 each Symbicort) RBID JOAN Administration Pt Own Proventil 1 each 05/08/21 20:06 Inhaler INHALE RQ4H PRN Shortness of Breath/Wheezing Pharmacy Consult 1 each 05/06/21 22:06 Consult Rx Perform Med Rec MISCELLANE ONCE PRN Consult order Sodium Chloride 3 ml 05/07/21 00:00 05/09/21 16:23 0.9 % Sodium Chloride Flush 3 Ml Syringe IVFLUSH 3 ml QSHIFT JOAN Administration Spironolactone 25 mg 05/07/21 09:00 05/09/21 11:06 Spironolactone 25 Mg Tablet PO 25 mg DAILY JOAN Administration Protocol Labs CBC & Chem 7: 05/07/21 07:40 05/09/21 09:19 Labs: Laboratory Results - last 24 hr 05/08/21 05/09/21 05/09/21 19:30 09:19 09:19 Sodium 136 135 Potassium 3.6 3.7 Chloride 101 101 Carbon Dioxide 26 24 Anion Gap 13 14 BUN 24 H 22 H Creatinine 1.53 H 1.47 H Estim Creat Clear Calc 43.7 45.5 Estimated GFR 45 47 Random Glucose 137 H D 164 H Calcium 8.5 8.7 B-Natriuretic Peptide 644 H Stool Leukocytes, Qual C. difficile Tox B Gene 05/09/21 05/09/21 13:30 13:30 Sodium Potassium Chloride Carbon Dioxide Anion Gap BUN Creatinine Estim Creat Clear Calc Estimated GFR Random Glucose Calcium B-Natriuretic Peptide Stool Leukocytes, Qual FEW: < 2/OIF C. difficile Tox B Gene NEGATIVE Microbiology Microbiology Results: Microbiology 05/06/21 21:42 Blood Culture - Preliminary Blood - Venous No growth after 48 hours. 05/06/21 21:26 Blood Culture - Preliminary Blood - Venous No growth after 48 hours. Quality Stroke Does the patient have a stroke diagnosis?: No VTE Prior VTE?: No VTE Risk Level:: Medical - moderate - high VTE Device Contraindication: Treatment Not Indicated VTE Drug Contraindication: Treatment Not Indicated Assessment and Plan (1) CHF (congestive heart failure): Status: Acute (2) Cellulitis of left leg: Status: Acute (3) Afib: Status: Acute Assessment and Plan: 71-year-old male with a past medical history of hypertension, hyperlipidemia, CAD status post CABG, carotid artery disease, CHF with EF of 45%, AFib on Eliquis, history of aortic valve replacement, severe mitral and tricuspid regurgitation, liver cirrhosis, portal hypertension, history of esophageal varices, asthma, chronic kidney disease presented to the hospital with a chief complaint of left leg pain redness and swelling. noted to have cellulitis; admitted for further management. 1.Left leg cellulitis: Continue ceftriaxone day3, pain control blod cultures prelimiary negative Venous duplex and leg access negative for acute findings. 2. chronic CHF/MR/TR: hold Bumex due to low blood pressure. I's and o's and daily weights. As per [facility] records: Patient echo shows EF of 50-55% No regional was more abnormalities also severe functional mitral regurgitation, as well as severe tricuspid regurgitation Patient is back on his Bumex and spironolactone We will add back his losartan as per BMP and if his blood pressure allows in the morning. In addition patient's intervention cashier receptionist as per family Dr. Poncho Price ([phone]): Is planning to transfer the patient-to [facility]-family is reaching out to him, spoke to patient cashier receptionist-patient needs to be more middle regurgitation surgery so they are planning to transfer him. Accepting physician will be Dr. Charlene Tilley 3.Hypertension: Patient's blood pressure currently on the soft side. hold home losartan Continue metoprolol succinate adjusted to 25 mg q.i.d.. 4.History of AFib: Rate controlled. Continue home Eliquis. Ventricular rate is 100 range, continue metoprolol as adjusted. 5. ckd: Paperwork from the family([facility]): Please see in the front of paper chart in [facility]. Creatinine was in 1.8 range in 2015 and from 2018 it was running about 1.2-1.5 until 2020 and even 1.8 in 202 recently' will add nephro since unclear ckd baseline 5.History of glaucoma,: Continue home eye drops. 6.Hyperlipidemia: Continues home statin. 7.Diarrhae : stool studies , cdiff if neg stool studies -patient does not prefer to use imodium.
--- NOTE | 2021-05-09 16:45 | PM.CNNEP ---
Assessment and Plan (1) Cellulitis of left leg: Status: Acute (2) CHF (congestive heart failure): Status: Acute 1. DL: Scr decr back to bsl 2. CKD 3: bsl Scr 1.4-1.6; suspect HTN renal dis vs STEVE/IRD; given anemia need to r/o dysproteinemia sa cause of CKD and anemia 3. Cellulitis 4. Hypervol: compensated on diuretics 5. Anemia 6. Valular Mondragon REC: cont to track renal func; check immunofix; avoid NToxins will follow with team History of Present Illness Reason for Consult Consult date: 05/09/21 Requesting physician: Marcie Saini Chief Complaint Chief complaint: Left leg cellulitis History of Present Illness Narrative: Asked to see PT re CKD 3 in setting multiple med probs includimg: hypertension, hyperlipidemia, CAD status post CABG, carotid artery disease, CHF with EF of 45%, AFib on Eliquis, history of aortic valve replacement, severe mitral and tricuspid regurgitation, liver cirrhosis, portal hypertension, history of esophageal varices, asthma and adm wth L leg swelling and concern for cellulitis. Currently being evaluated at [facility] for surgery for mitral and tricuspid regurgitation; has seen a heart failure specialist, recommended diuresis/fluid state optimization prior to surgery. Review of Systems Review of Systems Patient denies any chest pain or shortness of breath or abdominal pain or fever chills Leg erythema seems improving Yes all other systems are reviewed and are negative Constitutional: Reports no additional constitutional complaints Cardiovascular: Reports no additional cardiovascular complaints Respiratory: Reports no additional respiratory complaints Gastrointestinal: Reports no additional gastrointestinal complaints Genitourinary: Reports no additional male genitourinary complaints Skin/Breast: Reports erythema and Reports skin pain Reports system reviewed and no additional complaints, except as documented [facility] Past Medical History Medical History Afib Asthma CHF (congestive heart failure) CKD (chronic kidney disease) Headache Hx of carotid stenosis Hypertension Mitral valve regurgitation On anticoagulant therapy On beta juana at home Tricuspid valve regurgitation Family History Family history: reviewed and not pertinent Surgical History Surgical History H/O aortic valve repair (~2014) History of decompression of ulnar nerve History of detached retina repair History 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) Social History Social History Household Members: None Housing: House Do you presently have visiting nurse or other home services: No Alcohol intake: never Patient Tobacco Use Status: Never used Tobacco Current occupational status: retired Meds Allergies Allergy/AdvReac Type Severity Reaction Status Date / Time adhesive Allergy Severe Hives Verified 05/06/21 19:55 CASHEWS Allergy Severe Anaphylaxis Uncoded 05/06/21 19:55 peanuts Allergy Severe Anaphylaxis Uncoded 05/06/21 19:55 Active Medications: Current Medications Generic Name Dose Route Start Last Admin Trade Name Freq PRN Reason Stop Dose Admin Apixaban 5 mg 05/06/21 23:50 05/09/21 11:07 Apixaban 5 Mg Tablet PO 5 mg BID JOAN Administration Ascorbic Acid 1,000 mg 05/07/21 12:00 05/09/21 11:07 Ascorbic Acid 500 Mg Tablet PO 1,000 mg DAILY@12 JOAN Administration Atorvastatin Calcium 40 mg 05/06/21 23:50 05/08/21 20:27 Atorvastatin Calcium 40 Mg Tablet PO 40 mg BEDTIME JOAN Administration Bumetanide 2 mg 05/07/21 09:00 05/09/21 11:08 Bumetanide 1 Mg Tablet PO 2 mg DAILY JOAN Administration Protocol Epinephrine 0.3 mg 05/07/21 00:10 Epinephrine 1 Mg/Ml Vial IM Q10M PRN Anaphylaxis Erythromycin 0 cm 05/07/21 21:00 05/08/21 21:54 Erythromycin Base 0.5% Oph Oin 1 Gm Tube EYE-BOTH 1 cm BEDTIME JOAN Administration Ceftriaxone Sodium 1 gm/ 50 mls @ 100 mls/hr 05/07/21 10:00 05/09/21 11:57 Sodium Chloride IV Infused Q24H JOAN Infusion Latanoprost 1 drop 05/06/21 23:50 05/08/21 20:04 Latanoprost 0.005 % Ophth Elena 2.5 Ml Drops EYE-BOTH 1 drop BEDTIME JOAN Administration Melatonin 6 mg 05/06/21 23:44 Melatonin 3 Mg Tablet PO BEDTIME PRN Insomnia Metoprolol Tartrate 25 mg 05/09/21 09:00 05/09/21 16:23 Metoprolol Tartrate 25 Mg Tablet PO 25 mg QID JOAN Administration Protocol Montelukast Sodium 10 mg 05/07/21 21:00 05/08/21 20:27 Montelukast Sodium 10 Mg Tablet PO 10 mg BEDTIME JOAN Administration Multivitamins/Vitamin C 1 tab 05/07/21 09:00 05/09/21 11:07 Multivitamin Tablet PO 1 tab DAILY JOAN Administration Patient Own 1 each 05/08/21 21:00 05/09/21 08:08 Medication ( INHALE 1 each Symbicort) RBID JOAN Administration Pt Own Proventil 1 each 05/08/21 20:06 Inhaler INHALE RQ4H PRN Shortness of Breath/Wheezing Pharmacy Consult 1 each 05/06/21 22:06 Consult Rx Perform Med Rec MISCELLANE ONCE PRN Consult order Sodium Chloride 3 ml 05/07/21 00:00 05/09/21 16:23 0.9 % Sodium Chloride Flush 3 Ml Syringe IVFLUSH 3 ml QSHIFT JOAN Administration Spironolactone 25 mg 05/07/21 09:00 05/09/21 11:06 Spironolactone 25 Mg Tablet PO 25 mg DAILY JOAN Administration Protocol Home Medications Medication Instructions Recorded Confirmed Last Taken Type albuterol sulfate [Proventil HFA] 2 puff INHALATION DAILY 04/08/21 05/06/21 05/06/21 History apixaban [Eliquis] 1 tab PO BID 04/08/21 05/06/21 05/06/21 History ascorbic acid (vitamin C) [Vitamin 1,000 mg PO DAILY@12 04/08/21 05/06/21 05/05/21 History C] atorvastatin 1 tab PO BEDTIME 04/08/21 05/06/21 05/05/21 History budesonide-formoterol [Symbicort] 2 puff INHALATION BID 04/08/21 05/06/21 05/06/21 History bumetanide 2 mg PO DAILY 04/08/21 05/06/21 05/06/21 History epinephrine 0.3 mg IM Q10M PRN 04/08/21 05/06/21 Unknown History hawthorn green 450 mg PO BEDTIME 04/08/21 05/06/21 05/05/21 History lactobacillus combination no.4 3,000 mmu cells PO DAILY@12 04/08/21 05/06/21 05/05/21 History [Probiotic] latanoprost 1 drp OPHTHALMIC (EYE) BEDTIME 04/08/21 05/06/21 05/05/21 History losartan 1 tab PO DAILY 04/08/21 05/06/21 05/05/21 History metoprolol succinate 1 tab PO Q12H 04/08/21 05/06/21 05/06/21 History uervr-4s-mpg-epa-fish oil [Fish 1 cap PO BEDTIME 04/08/21 05/06/21 05/05/21 History Oil] spironolactone 1 tab PO DAILY 04/08/21 05/06/21 05/06/21 History erythromycin 1 appl OPHTHALMIC (EYE) BEDTIME 05/06/21 05/06/21 05/05/21 History garlic 1,000 mg PO DAILY@12 05/06/21 05/06/21 05/05/21 History montelukast 1 tab PO BEDTIME 05/06/21 05/06/21 05/05/21 History multivitamin 1 tab PO DAILY 05/06/21 05/06/21 05/06/21 History Physical Exam Vital Signs: Last Vital Signs Temp 98.1 F 05/09/21 15:21 Pulse 91 05/09/21 16:23 Resp 18 05/09/21 15:21 BP 126/77 05/09/21 16:23 Pulse Ox 99 05/09/21 15:21 Body Mass Index 28.0 Const General: cooperative, comfortable, no acute distress, alert and awake Nutritional Appearance: average body habitus Orientation/consciousness: patient oriented x3 HENMT Head: Yes normal to inspection, Yes normocephalic and Yes atraumatic Mouth: Normal oral and palatal mucosa present Neck Neck: Yes trachea midline, Yes supple and Yes no JVD Resp Effort & Inspection: normal respiratory effort Cardio Jugular venous distension: no JVD Rate: regular rate Rhythm: regular rhythm and abnormal rhythm irregularly irregular Heart sounds: S1 normal heart sound present and S2 normal heart sound present GI Palpation (GI): Soft to palpation and nontender Auscultation: normal bowel sounds Skin General skin exam: no rashes or lesions noted and other (Cellulitis of the left lower extremity noted) Neuro General: patient oriented x3 and no focal motor deficits Extrem Other: decreasing LLE redness General: Yes no clubbing, cyanosis or edema Results Lab Results Result Diagrams: 05/07/21 07:40 05/09/21 09:19 Lab results: Chemistry 05/06/21 05/08/21 05/09/21 20:06 19:30 09:19 Sodium 136 136 135 Potassium 4.5 3.6 3.7 Carbon Dioxide 25 26 24 BUN 38 H 24 H 22 H Creatinine 1.87 H 1.53 H 1.47 H Calcium 9.0 8.5 8.7 Hematology 05/06/21 05/07/21 20:06 07:40 WBC 10.1 9.0 Hgb 9.8 L 9.4 L Plt Count 88 L 82 L Procedures Date of Service Date of Service: 05/09/21
--- NOTE | 2021-05-09 17:08 | PM.DS ---
DS: Providers Provider Date of Service: 05/09/21 Date of admission: 05/06/21 23:44 Primary care physician: MAXIMINO Ryan Consults: 05/06/21 23:44 Consult to Cardiology Routine Consulting Provider: Houston Larry Reason for consultation: CHF; hx MR/TR; due for surgery 05/07/21 18:38 Consult to Infectious Diseases Routine Consulting Provider: Saira Carter Reason for consultation: left leg cellulitis Has provider been notified: No 05/09/21 12:04 Consult to Nephrology Routine Consulting Provider: Aba Mcarthur Reason for consultation: ? allison vs ckd Has provider been notified: No DS: Diagnosis Discharge Diagnosis (1) CHF (congestive heart failure): Status: Acute (2) Cellulitis of left leg: Status: Acute (3) Afib: Status: Acute DS: Medications Discharge Medications Home Medications: Home Medications Medication Instructions Recorded Confirmed albuterol sulfate [Proventil HFA] 2 puff INHALATION DAILY 04/08/21 05/06/21 apixaban [Eliquis] 1 tab PO BID 04/08/21 05/06/21 ascorbic acid (vitamin C) [Vitamin 1,000 mg PO DAILY@12 04/08/21 05/06/21 C] atorvastatin 1 tab PO BEDTIME 04/08/21 05/06/21 budesonide-formoterol [Symbicort] 2 puff INHALATION BID 04/08/21 05/06/21 bumetanide 2 mg PO DAILY 04/08/21 05/06/21 epinephrine 0.3 mg IM Q10M PRN 04/08/21 05/06/21 hawthorn green 450 mg PO BEDTIME 04/08/21 05/06/21 lactobacillus combination no.4 3,000 mmu cells PO DAILY@12 04/08/21 05/06/21 [Probiotic] latanoprost 1 drp OPHTHALMIC (EYE) BEDTIME 04/08/21 05/06/21 losartan 1 tab PO DAILY 04/08/21 05/06/21 metoprolol succinate 1 tab PO Q12H 04/08/21 05/06/21 prtaw-4b-gum-epa-fish oil [Fish 1 cap PO BEDTIME 04/08/21 05/06/21 Oil] spironolactone 1 tab PO DAILY 04/08/21 05/06/21 erythromycin 1 appl OPHTHALMIC (EYE) BEDTIME 05/06/21 05/06/21 garlic 1,000 mg PO DAILY@12 05/06/21 05/06/21 montelukast 1 tab PO BEDTIME 05/06/21 05/06/21 multivitamin 1 tab PO DAILY 05/06/21 05/06/21 DS: Summary Hospital Course Hospital Course: 71-year-old male with a past medical history of hypertension, hyperlipidemia, CAD status post CABG, carotid artery disease, CHF with EF of 45%, AFib on Eliquis, history of aortic valve replacement, severe mitral and tricuspid regurgitation, liver cirrhosis, portal hypertension, history of esophageal varices, asthma, chronic kidney disease presented to the hospital with a chief complaint of left leg pain redness and swelling. noted to have cellulitis; admitted for further management. 1.Left leg cellulitis: seems improving slowly blood cultures prelimiary negative Venous duplex and leg access negative for acute findings. Continue ceftriaxone day3. 2. chronic CHF/MR/TR: denies any sob or pnd or orthopnea. I's and o's and daily weights. 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 Poncho Price: Is planning to transfer the patient-to [facility]- spoke to patient milling machine tender-patient needs to be more middle regurgitation surgery so they are planning to transfer him. Accepting physician will be Dr. Charlene Tilley 3.Hypertension: Patient's blood pressure currently on the soft side. hold home losartan due to softer blood pressure. Continue metoprolol succinate adjusted to 25 mg q.i.d.. 4.History of AFib: Rate controlled. Continue home Eliquis. Ventricular rate is 100 range, continue metoprolol as adjusted. Monitor blood pressure closely. 5. ckd: Paperwork from the family([facility]): Please see in the front of paper chart in [facility]. Creatinine was in 1.8 range in 2015 and from 2017 it was running about 1.2-1.5 until 2019 and evenas high as 1.8 in 2020 recently( as per [facility]) Last creatinine call was 1.47 today. 5.History of glaucoma,: Continue home eye drops. 6.Hyperlipidemia: Continues home statin. 7.Diarrhae : stool studies , cdiff if neg stool studies -patient does not prefer to use imodium Above management discussed with the patient in detail length he understand and in agreement with the above plan, time spent 50 minutes and 50% time spent on counseling. Significant findings: As above. Procedures performed: None. Treatment and response: As above. Complications: None. Time Spent with Patient Time attestation: Total time spent providing and/or coordinating discharge services: Discharge coordination time: Greater than 30 minutes Quality: Stroke Does the patient have a stroke diagnosis?: No Physical Exam Vital Signs: Vital Signs: Last Vital Signs Temp 98.1 F 05/09/21 15:21 Pulse 91 05/09/21 16:23 Resp 18 05/09/21 15:21 BP 126/77 05/09/21 16:23 Pulse Ox 99 05/09/21 15:21 Body Mass Index 28.0 physical exam: Cvs: irregular rythem, [id number] , no murmur res: clear to auscultation ,no rhonchii or wheezing abd: no rebound or guarding ,nt, bs present. ext pulses present , no cyanosis, has left leg edema >right Erythema of floor foot and leg improving, no fluctuation or any ulcers, no drainage neuro: axo3 , nonfocal. DS: Data Data Completed and Pending Labs on day of discharge: Laboratory Results - last 24 hr 05/08/21 05/09/21 05/09/21 19:30 09:19 09:19 Sodium 136 135 Potassium 3.6 3.7 Chloride 101 101 Carbon Dioxide 26 24 Anion Gap 13 14 BUN 24 H 22 H Creatinine 1.53 H 1.47 H Estim Creat Clear Calc 43.7 45.5 Estimated GFR 45 47 Random Glucose 137 H D 164 H Calcium 8.5 8.7 B-Natriuretic Peptide 644 H Stool Leukocytes, Qual C. difficile Tox B Gene 05/09/21 05/09/21 13:30 13:30 Sodium Potassium Chloride Carbon Dioxide Anion Gap BUN Creatinine Estim Creat Clear Calc Estimated GFR Random Glucose Calcium B-Natriuretic Peptide Stool Leukocytes, Qual FEW: < 2/OIF C. difficile Tox B Gene NEGATIVE Preliminary micro results at discharge 05/06/21 21:42 Blood Culture - Preliminary Blood - Venous No growth after 48 hours. 05/06/21 21:26 Blood Culture - Preliminary Blood - Venous No growth after 48 hours. Discharge Plan Discharge Patient Disposition: [facility] Discharge Diagnosis: Left leg cellulitis, CKD. History of CHF and MR Referrals: Physician,Unknown [Physician] - 1 Week Discharge Medications: New metoprolol tartrate 25 mg Tablet 25 mg PO QID Qty: 1 RF: 0 Continued atorvastatin 40 mg tablet 1 tab PO BEDTIME RF: 0 bumetanide 2 mg tablet 2 mg PO DAILY RF: 0 spironolactone 25 mg tablet 1 tab PO DAILY RF: 0 albuterol sulfate [Proventil HFA] 90 mcg/actuation HFA aerosol inhaler 2 puff inhalation DAILY RF: 0 Eliquis 5 mg tablet 1 tab PO BID RF: 0 hawthorn green 450 mg Capsule 450 mg PO BEDTIME RF: 0 ascorbic acid (vitamin C) [Vitamin C] 500 mg Tablet 1,000 mg PO DAILY@12 RF: 0 epinephrine 0.3 mg/0.3 mL Auto-Injector 0.3 mg IM Q10M PRN (Reason: Anaphylaxis) RF: 0 budesonide-formoterol [Symbicort] 160-4.5 mcg/actuation Hfa Aerosol Inhaler 2 puff INHALATION BID RF: 0 Probiotic 3 billion cell Capsule 3,000 mmu cells PO DAILY@12 RF: 0 Fish Oil 120 mg-180 mg- 60 mg-1,200 mg Capsule,Delayed Release(Dr/Ec) 1 cap PO BEDTIME RF: 0 latanoprost 0.005 % Drops 1 drp ophthalmic (eye) BEDTIME RF: 0 multivitamin Tablet 1 tab PO DAILY RF: 0 garlic 1,000 mg Capsule 1,000 mg PO DAILY@12 RF: 0 erythromycin 5 mg/gram (0.5 %) ointment 1 appl ophthalmic (eye) BEDTIME RF: 0 montelukast 10 mg tablet 1 tab PO BEDTIME RF: 0 Held metoprolol succinate 100 mg tablet extended release 24 hr 1 tab PO Q12H RF: 0 Hold Instructions: Resume on 05/11/21. Currently on divided doses of metoprolol due to softer blood pressure-please adjust as blood pressure allows.. losartan 25 mg tablet 1 tab PO DAILY RF: 0 Hold Instructions: Resume on 05/11/21. hold due to boderline blood pressure. Please recheck renal function and electrolytes also before starting it. Diet: advance to usual diet, low fat, low cholesterol and low salt diet Activity on Discharge: As tolerated Stand Alone Forms: Patient Portal Discharge page Care Plan Goals: Patient admitted with left leg cellulitis-which is slowly improving with ceftriaxone. Patient also has chronic CHF and mitral regurgitation: Patient was planned for surgical procedure in [facility]-for which patient family and patient milling machine tender recommended to transfer for optimization before the procedure. CKD: Patient creatinine is around 1.5, continue to monitor in [facility], consider nephrology evaluation if needed. Please add losartan back if okay of as per Nephro and after repeating BMP. AFib zimmerman: Heart rate is in 100 range: Discussed with Cardiology -adjusted metoprolol 25 mg q.i.d., monitor blood pressure closely. Diarrhea: Had 1 episode of diarrhea denies any other abdominal complaint including nausea vomiting or abdominal pain: Stool studies are send and pending. Health Concerns: as above. Plan of Treatment: as above. Assessment: as above.
[2021-05-09 18:26] LABS: COVID-19 Test Negative (Negative)
--- NOTE | 2021-05-09 19:58 | PC.NURSE ---
pt leaving AMA, does not want to transfer to [facility]. MD at bedside, explained risks of leaving ama. Pt verbalizes understanding. IV removed. Telepack removed. Pt transported with daughter. A+ox3, cooperative reports no pain. pt left floor at 1945.
--- NOTE | 2021-05-09 21:15 | P.EN_ITS ---
Event Note Date of Service: 05/09/21 Event Note: Against medical advise noticed: Are mentioned the patient wanted leave against medical advice. I went in to speak to the patient; explained the risks involved in leaving against medical advice; patient verbalized that he understood the risks. History wanted to zuhair ve against medical advice. Patient mentioned that he wanted to go home and do the packing and wanted to go to the [facility] 1st thing in the morning as expected a long stay at [facility]. Patient given p.o. antibiotic prescription as per ID recommendations.;
== END 2021-05-09 19:59 | disposition left against medical advice (07) | DRG 603 ==
LOC: HO.ED 22:43 → HO.EDOVER 05-07 00:03 → HO.IMC 05-07 14:21
PROVIDERS: Physician Assistant; Admitting Provider Hospitalist; Emergency Provider Emergency Medicine; PCP Nurse Practitioner Family; Visit Provider Internal Medicine
DX: L03.116 Cellulitis of left lower limb (principal); I13.0 Hypertensive heart and chronic kidney disease with heart failure and stage 1 through stage 4 chronic kidney disease, or unspecified chronic kidney disease; N17.9 Acute kidney failure, unspecified; I08.1 Rheumatic disorders of both mitral and tricuspid valves; I48.91 Unspecified atrial fibrillation; H40.9 Unspecified glaucoma; I25.10 Atherosclerotic heart disease of native coronary artery without angina pectoris; N18.30 Chronic kidney disease, stage 3 unspecified; K74.60 Unspecified cirrhosis of liver; I50.9 Heart failure, unspecified; D63.1 Anemia in chronic kidney disease; R19.7 Diarrhea, unspecified; Z95.1 Presence of aortocoronary bypass graft; Z95.2 Presence of prosthetic heart valve; E78.5 Hyperlipidemia, unspecified; Z20.822 Contact with and (suspected) exposure to COVID-19; Z79.01 Long term (current) use of anticoagulants; Z79.899 Other long term (current) drug therapy
CPT/HCPCS: 36415; 71046; 73590; 80048; 80076; 83605; 83880; 84134; 84484; 85025; 85652; 86140; 87040; 87045; 87046; 87493; 87635; 89055; 93005; 93971; 99285; J0696

== ENCOUNTER 2021-07-27 19:34 | Emergency (ER) | payer OTHER, SELFPAY ==
[2021-07-27 19:39] VITALS: BP 123/78; PULSE 109; RESP 18; TEMP 37.2; O2SAT 100; BMI 27.6
--- NOTE | 2021-07-27 23:38 | ED_ITS ---
HPI - General Adult General Chief complaint: General Medical Stated complaint: Hernia/Tick bite Time Seen by Provider: 07/27/21 23:38 Source: patient and family Mode of arrival: ambulatory Limitations: no limitations History of Present Illness HPI narrative: Patient with multiple comorbid conditions followed with ca rdiologist at [facility] comes here as he has a PICC with final hernia and has difficulty urinating because of the pressure of the hernia which is going on for long time seen by surgeons unable to do surgery because of cardiac risk. No vomiting no nausea nose increase sudden increase in pain or swelling. Also patient complaining of tick bite on his left chest which happened 4 4 days ago initially thought was a scab and daughter later realize was there is thick try to remove it is still has a part of the head inside the skin. Tick was engorged when was removed. Has small rash around the site of the tick bite noted bull's-eye rash any other symptoms no history of Lyme disease no fever or chills Related Data Home Medications Medication Instructions Recorded Confirmed albuterol sulfate 90 mcg/actuation 2 puff INHALATION DAILY 04/08/21 05/06/21 aerosol inhaler (Proventil HFA) apixaban 5 mg tablet (Eliquis) 1 tab PO BID 04/08/21 05/06/21 ascorbic acid (vitamin C) 500 mg 1,000 mg PO DAILY@12 04/08/21 05/06/21 tablet (Vitamin C) atorvastatin 40 mg tablet 1 tab PO BEDTIME 04/08/21 05/06/21 budesonide-formoterol HFA 160 2 puff INHALATION BID 04/08/21 05/06/21 mcg-4.5 mcg/actuation aerosol inhaler (Symbicort) bumetanide 2 mg tablet 2 mg PO DAILY 04/08/21 05/06/21 epinephrine 0.3 mg/0.3 mL 0.3 mg IM Q10M PRN 04/08/21 05/06/21 injection, auto-injector adán green 450 mg capsule 450 mg PO BEDTIME 04/08/21 05/06/21 lactobacillus combination no.4 3 3,000 mmu cells PO DAILY@12 04/08/21 05/06/21 billion cell capsule (Probiotic) latanoprost 0.005 % eye drops 1 drp OPHTHALMIC (EYE) BEDTIME 04/08/21 05/06/21 losartan 25 mg tablet 1 tab PO DAILY 04/08/21 05/06/21 metoprolol succinate 100 mg 1 tab PO Q12H 04/08/21 05/06/21 tablet,extended release 24 hr [id number]-epa-fish oil 120 1 cap PO BEDTIME 04/08/21 05/06/21 mg-180 mg-60 mg-1,200 mg capsule, DR (Fish Oil) spironolactone 25 mg tablet 1 tab PO DAILY 04/08/21 05/06/21 erythromycin 5 mg/gram (0.5 %) eye 1 appl OPHTHALMIC (EYE) BEDTIME 05/06/21 05/06/21 ointment garlic 1,000 mg capsule 1,000 mg PO DAILY@12 05/06/21 05/06/21 montelukast 10 mg tablet 1 tab PO BEDTIME 05/06/21 05/06/21 multivitamin 1 tab PO DAILY 05/06/21 05/06/21 Previous Rx's Medication Instructions Recorded metoprolol tartrate 25 mg tablet 25 mg PO QID #1 tab 05/09/21 doxycycline hyclate 100 mg tablet 100 mg PO BID 21 Days #42 tab 07/28/21 Allergies Allergy/AdvReac Type Severity Reaction Status Date / Time adhesive Allergy Severe Hives Verified 07/28/21 00:02 CASHEWS Allergy Severe Anaphylaxis Uncoded 07/28/21 00:02 peanuts Allergy Severe Anaphylaxis Uncoded 07/28/21 00:02 Review of Systems Review of Systems: Yes all other systems are reviewed and are negative [facility] Past Medical History Medical History Acute exacerbation of CHF (congestive heart failure) Afib Asthma CHF (congestive heart failure) CKD (chronic kidney disease) Headache Hx of carotid stenosis Hypertension Mitral valve regurgitation On anticoagulant therapy On beta juana at home Tricuspid valve regurgitation Surgical History H/O aortic valve repair (~2014) History of decompression of ulnar nerve History of detached retina repair History 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) Social History Social History Household Members: None Housing: House Do you presently have visiting nurse or other home services: No Alcohol intake: never Patient Tobacco Use Status: Never used Tobacco Advance Directives: No Current occupational status: retired Physical Exam Vital Signs: Vital Signs: Last Vital Signs Temp 98.2 F 07/28/21 00:28 Pulse 76 07/28/21 00:28 Resp 16 07/28/21 00:28 BP 114/61 07/28/21 00:28 Pulse Ox 100 07/28/21 00:28 Body Mass Index 27.6 Const: General: no acute distress and well developed Orientation/co nsciousness: patient oriented x3 HENMT: Head: Yes normocephalic and Yes atraumatic Eyes: General: appearance normal, both eyes and all related structures Neck: Neck: Yes normal visual inspection and Yes full ROM Chest: Chest/axillae images: 1. Tick bite with surrounding cellulitis and inflammation Resp: Effort & Inspection: normal respiratory effort Auscultation: clear to auscultation bilaterally, no crackles and no rales Cardio: Jugular venous distension: no JVD Palpation: normal PMI Rate: regular rate Rhythm: regular rhythm Heart sounds: S1 normal heart sound present and S2 normal heart sound present Peripheral pulses: Peripheral pulses 2+ throughout GI: Inspection: Yes normal to inspection Palpation (GI): Soft to palpation and Hernia present (Right huge direct inguinal hernia nontender) direct inguinal Auscultation: normal bowel sounds : General: Yes no CVA tenderness Testes: Testes normal Back/Spine/Pelvis: Back: no CVA tenderness Neuro: General: patient oriented x3 Extrem: General: Yes edema (2+ edema) Medical Decision Making MDM Narrative Medical decision making narrative: Remnant of the tick head was removed using local infiltration of lidocaine and a needle. patient was given choices advised to take doxycycline for at least 10 days and may continue for 21 days as tick was on his body for 3-4 days. With high comorbid conditions. Discharge Plan Discharge Clinical Impression: Tick bite Qualifiers: Encounter type: initial encounter Site of tick bite: thoracic wall Front or back of thoracic wall: front Thoracic wall location detail: left Qualified Code(s): S20.362A - Insect bite (nonvenomous) of left front wall of thorax, initial encounter Patient Disposition: Home, Self-Care Instructions: Tick Bite (ED) Additional Instructions: Local care as advised Take antibiotic as prescribed for 10 days if the problem continues finished a course for 21 days Prescriptions: New doxycycline hyclate 100 mg tablet 100 mg PO BID 21 Days Qty: 42 RF: 0 No Action atorvastatin 40 mg tablet 1 tab PO BEDTIME RF: 0 bumetanide 2 mg tablet 2 mg PO DAILY RF: 0 metoprolol succinate 100 mg tablet extended release 24 hr 1 tab PO Q12H RF: 0 Hold Instructions: Resume on 05/11/21. Currently on divided doses of metoprolol due to softer blood pressure-please adjust as blood pressure allows.. spironolactone 25 mg tablet 1 tab PO DAILY RF: 0 losartan 25 mg tablet 1 tab PO DAILY RF: 0 Hold Instructions: Resume on 05/11/21. hold due to boderline blood pressure. Please recheck renal function and electrolytes also before starting it. albuterol sulfate [Proventil HFA] 90 mcg/actuation HFA aerosol inhaler 2 puff inhalation DAILY RF: 0 Eliquis 5 mg tablet 1 tab PO BID RF: 0 hawthorn green 450 mg Capsule 450 mg PO BEDTIME RF: 0 ascorbic acid (vitamin C) [Vitamin C] 500 mg Tablet 1,000 mg PO DAILY@12 RF: 0 epinephrine 0.3 mg/0.3 mL Auto-Injector 0.3 mg IM Q10M PRN (Reason: Anaphylaxis) RF: 0 budesonide-formoterol [Symbicort] 160-4.5 mcg/actuation Hfa Aerosol Inhaler 2 puff INHALATION BID RF: 0 Probiotic 3 billion cell Capsule 3,000 mmu cells PO DAILY@12 RF: 0 Fish Oil 120 mg-180 mg- 60 mg-1,200 mg Capsule,Delayed Release(Dr/Ec) 1 cap PO BEDTIME RF: 0 latanoprost 0.005 % Drops 1 drp ophthalmic (eye) BEDTIME RF: 0 multivitamin Tablet 1 tab PO DAILY RF: 0 garlic 1,000 mg Capsule 1,000 mg PO DAILY@12 RF: 0 erythromycin 5 mg/gram (0.5 %) ointment 1 appl ophthalmic (eye) BEDTIME RF: 0 montelukast 10 mg tablet 1 tab PO BEDTIME RF: 0 metoprolol tartrate 25 mg Tablet 25 mg PO QID Qty: 1 RF: 0 Interventions: ED Discharge Assessment Last Done: 07/28/21 00:43 Discharge Date/Time: 10/12/21 00:44
[2021-07-28] VITALS: BP 114/58; PULSE 96; RESP 16; TEMP 36.9; O2SAT 99
--- NOTE | 2021-07-28 | PC.NURSE ---
This RN to bedside for first encounter with pt. Pt aaox4, resting on stretcher in NAD, breathing with ease on RA with daughter at bedside. Pt denies pain at this time but reports pain with walking and palpation of groin. Pt medicated with abx per MAR and lido scanned and put at bedside for Dr Byrnes use. Dr Byrnes made aware. Dr Byrnes to bedside.
[2021-07-28] MEDS: Lidocaine HCl 2 % MPF 5 ML VIAL INFILTRATI (00:04)
[2021-07-28 00:28] VITALS: BP 114/61; PULSE 76; RESP 16; TEMP 36.8; O2SAT 100
== END 2021-07-28 00:44 | disposition home or self-care (01) ==
PROVIDERS: Emergency Provider Internal Medicine
DX: S20.362A Insect bite (nonvenomous) of left front wall of thorax, initial encounter (principal); I13.0 Hypertensive heart and chronic kidney disease with heart failure and stage 1 through stage 4 chronic kidney disease, or unspecified chronic kidney disease; I50.9 Heart failure, unspecified; N18.9 Chronic kidney disease, unspecified; I48.91 Unspecified atrial fibrillation; Z79.01 Long term (current) use of anticoagulants; Z79.899 Other long term (current) drug therapy; W57.XXXA Bitten or stung by nonvenomous insect and other nonvenomous arthropods, initial encounter; Y93.9 Activity, unspecified; Y92.9 Unspecified place or not applicable; Y99.9 Unspecified external cause status
CPT/HCPCS: 99284

== ENCOUNTER 2022-02-14 16:06 | Inpatient (IN) | payer OTHER, SELFPAY ==
--- NOTE | 2022-02-14 | ECG_ITS ---
Test Reason : dyspnea Blood Pressure : / mmHG Vent. Rate : 106 BPM Atrial Rate : 000 BPM P-R Int : 000 ms QRS Dur : 096 ms QT Int : 356 ms P-R-T Axes : 000 013 192 degrees QTc Int : 472 ms Atrial fibrillation with rapid ventricular response Nonspecific T wave abnormality Abnormal ECG When compared with ECG of 06-MAY-2021 20:59, No significant change was found Referred By: Generic ED Physician Electronically Signed By:Richmond Jameson
--- NOTE | ~2022-02-14 | XR_ITS ---
EXAMINATION: XR CHEST CLINICAL INFORMATION: There are placement of pacemaker leads. COMPARISON: Chest x-ray 02/14/2022 TECHNIQUE: 2 views of the chest were obtained. FINDINGS: There is no current pacemaker in place. The retained pacemaker lead overlies the left hilar structures unchanged since chest x-ray 02/14/2022. EKG leads over the chest. Heart size is enlarged. Status post median sternotomy with cardiac valve repair, aortic and mitral. No pulmonary vascular congestion. No focal consolidation, no pleural effusion or pneumothorax. Bilateral chronic rotator cuff tendon tear. Degenerative spondylosis of the spine. XR/XR chest 2V IMPRESSION: 1. Retained pacemaker lead overlies the left hilar structures unchanged since prior chest x-ray. 2. EKG leads over the chest. 3. Cardiomegaly. Status post cardiac valve repair. 3. No acute abnormality of chest.
--- NOTE | ~2022-02-14 | XR_ITS ---
EXAMINATION: CHEST 2 VIEWS CLINICAL INFORMATION: dyspnea . COMPARISON: Prior chest x-ray 05/06/2021. TECHNIQUE: PA and lateral views of the chest obtained. FINDINGS: Lungs well-expanded with chronic appearing coarsened reticular markings seen bilaterally. I do not appreciate any acute superimposed focal infiltrate, effusion, edema, or pneumothorax superimposed on these chronic reticular changes. Patient is status post sternotomy with cardiac silhouette enlargement. There is prior aortic and likely mitral valve replacements. Note is made of interval migration of the retained epicardial pacing wire is changed in position from the current study to now. This now projects overlying the left hilar region. This migrated wire is of uncertain if any acute significance. No acute bony abnormality. XR/XR chest 2V IMPRESSION: Chronic appearing coarsened reticular markings again seen without superimposed overt edema or infectious etiology. Chronic postoperative changes. Of note, there does appear to have been interval migration of a retained epicardial pacing wire when compared to the 02/14/2022 study. This can rarely occur and is of uncertain significance. A CT scan of the chest may better delineate the current location of this wire. This critical result was discussed with Zayra CHUNG at 02/14/2022 4:55 PM and it was ascertained that the content and urgency of the report was understood at the time of direct communication.
[2022-02-14 16:12] VITALS: BP 100/64; PULSE 106; RESP 20; TEMP 36.3; O2SAT 99; BMI 28.3
[2022-02-14 16:38] LABS: MANUAL DIFF FLAG NO
[2022-02-14 16:40] LABS: Basophils Percent Auto 0.3 % (0-2); Eosinophils Absolute Auto 0.1 X10*3/uL (0.0-0.4); Eosinophils Percent Auto 1.6 % (0-4); Hematocrit 31.9 % (42.0-52.0); Hemoglobin 10.3 g/dl (14.0-18.0); Imm Gran Abs Auto 0.02 X10*3/uL (0.00-0.03); Imm Gran Pct Auto 0.3 % (0.0-0.4); Lymphocytes Absolute Auto 0.6 X10*3/uL (1.2-4.9); Lymphocytes Percent Auto 10.2 % (20-40); Mean Corpuscular HGB Conc 32.3 g/dl (31.0-36.0); Mean Corpuscular Hemoglobin 30.4 pg (27.0-33.0); Mean Corpuscular Volume 94.1 fL (80.0-98.0); Mean Platelet Volume 10.4 fL (9.4-12.4); Monocytes Absolute Auto 0.6 X10*3/uL (0.1-1.2); Monocytes Percent Auto 9.8 % (2-11); Neutrophils Absolute Auto 4.9 x10*3/uL (2.0-8.3); Neutrophils Percent Auto 77.8 % (45-73); Red Blood Count 3.39 X10*6/uL (4.60-5.80); Red Cell Distribution Width 15.6 % (11.0-16.0); White Blood Count 6.3 X10*3/uL (4.8-10.8)
[2022-02-14 16:42] LABS: Platelet Count 78 X10*3/uL (160-400)
[2022-02-14 16:57] LABS: Anion Gap 14 (12-20); Blood Urea Nitrogen 31 mg/dL (9-16); Calcium 9.1 mg/dL (8.4-10.2); Carbon Dioxide 23 mmol/L (22-29); Chloride 102 mmol/L (96-108); Creatinine Clr Calc Pharmacy 45.6; Estimated Glomerular Filt Rate 46; Glucose Random 115 mg/dL (60-115); Potassium 3.7 mmol/L (3.3-5.1); Sodium 135 mmol/L (135-145)
[2022-02-14 17:04] LABS: Troponin-I High Sensitivity 49.9 ng/L (<3.5-35.0)
[2022-02-14 20:19] VITALS: BP 110/77; PULSE 104; RESP 16; TEMP 36.9; O2SAT 99
--- NOTE | 2022-02-14 20:32 | ED_ITS ---
HPI - General Adult General Chief complaint: Dyspnea Stated complaint: Difficulty Breathing Time Seen by Provider: 02/14/22 16:58 Source: patient and family Limitations: no limitations History of Present Illness HPI narrative: This is a 72-year-old male has a history of cardiac surgery, CHF, atrial fibrillation, who has had chronically worsened shortness of breath and peripheral edema. The patient's daughter gives a very long and detailed history of the patient's multiple hospitalizations since about 2014. The patient apparently had cardiac surgery in 2014 and postoperatively had a pacemaker wire that was retained. The patient subsequently some years later was diagnosed with mitral valve regurgitation, also AFib. He ended up having an attempt at minimally invasive valve surgery last August, which had a the turned into open heart surgery. Daughter reports that the surgeon had tried to remove the retained wire at that time but it was imbedded. He did clip but shorter. The patient is on digoxin, metoprolol XL, Bumex, Eliquis, among other medications. The patient's auto transmission specialist is Dr.Moulin Briscoe, and he has reportedly recommended that the patient be admitted for gentle diuresis and rate control of his atrial fibrillation. The patient did recently have an admission to [facility] about a month ago where he had been advised to go to rule out pneumonia and have telemetry done for 3 days. Related Data Home Medications Medication Instructions Recorded Confirmed albuterol sulfate 90 mcg/actuation 2 puff INHALATION DAILY 04/08/21 02/14/22 aerosol inhaler (Proventil HFA) apixaban 5 mg tablet (Eliquis) 1 tab PO BID 04/08/21 02/14/22 ascorbic acid (vitamin C) 500 mg 1,000 mg PO DAILY@12 04/08/21 05/06/21 tablet (Vitamin C) atorvastatin 40 mg tablet 1 tab PO BEDTIME 04/08/21 02/14/22 budesonide-formoterol HFA 160 2 puff INHALATION BID 04/08/21 02/14/22 mcg-4.5 mcg/actuation aerosol inhaler (Symbicort) epinephrine 0.3 mg/0.3 mL 0.3 mg IM Q10M PRN 04/08/21 05/06/21 injection, auto-injector adán green 450 mg capsule 450 mg PO BEDTIME 04/08/21 05/06/21 lactobacillus combination no.4 3 3,000 mmu cells PO DAILY@12 04/08/21 05/06/21 billion cell capsule (Probiotic) latanoprost 0.005 % eye drops 1 drp OPHTHALMIC (EYE) BEDTIME 04/08/21 02/14/22 vejge-1k-qfa-epa-fish oil 120 1 cap PO BEDTIME 04/08/21 05/06/21 mg-180 mg-60 mg-1,200 mg capsule, DR (Fish Oil) spironolactone 25 mg tablet 1 tab PO DAILY 04/08/21 02/14/22 garlic 1,000 mg capsule 1,000 mg PO DAILY@12 05/06/21 05/06/21 montelukast 10 mg tablet 1 tab PO BEDTIME 05/06/21 02/14/22 multivitamin 1 tab PO DAILY 05/06/21 05/06/21 bumetanide 1 mg tablet 2 tab PO DAILY 02/14/22 02/14/22 digoxin 125 mcg (0.125 mg) tablet 1 tab PO Q OTHER DAY 02/14/22 02/14/22 metoprolol succinate 25 mg 1 tab PO BID 02/14/22 02/14/22 tablet,extended release 24 hr Allergies Allergy/AdvReac Type Severity Reaction Status Date / Time adhesive Allergy Severe Hives Verified 07/28/21 00:02 CASHEWS Allergy Severe Anaphylaxis Uncoded 07/28/21 00:02 peanuts Allergy Severe Anaphylaxis Uncoded 07/28/21 00:02 [facility] Past Medical History Medical History Acute exacerbation of CHF (congestive heart failure) Afib Asthma CHF (congestive heart failure) CKD (chronic kidney disease) Headache Hx of carotid stenosis Hypertension Mitral valve regurgitation On anticoagulant therapy On beta juana at home Tricuspid valve regurgitation Surgical History H/O aortic valve repair (~2014) History of decompression of ulnar nerve History of detached retina repair History 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) Social History Social History Household Members: None Housing: House Do you presently have visiting nurse or other home services: No Alcohol intake: current Alcohol intake frequency: holidays/special occasions only Patient Tobacco Use Status: Never used Tobacco Use of substances other than those prescribed or required for medical reasons: No Advance Directives: No Advance Directives Information Provided: No Current occupational status: retired Physical Exam ED Vital Signs: Vital Signs - 24 hr 02/14/22 16:12 02/14/22 20:19 02/14/22 21:35 Temperature 97.4 F 98.4 F 97.8 F Pulse Rate 106 H 104 H 94 Respiratory Rate 20 16 19 Blood Pressure 100/64 110/77 108/65 Pulse Oximetry 99 99 100 BMI result Body Mass Index 28.3 Medical Decision Making MDM Narrative Medical decision making narrative: Patient with history of cardiac surgery, twice, most recently mitral valve replacement surgery, has a known imbedded pacemaker wire which could not be removed during his last surgery, had been in since his prior surgery in 2014. Patient has had chronic atrial fibrillation, has had poor rate control, also chronic heart failure and peripheral edema. Patient is being admitted for improved rate control as well as gentle diuresis. Case discussed with Dr. Lubin, and hospitalist Dr. Blank has accepted the patient for admission Lab Data Lab results reviewed: Yes I reviewed the patient's lab results. Result diagrams: 02/14/22 16:34 02/14/22 16:34 Labs: Lab Results 02/14/22 02/14/22 02/14/22 Range/Units 16:34 16:34 16:34 WBC 6.3 (4.8-10.8) X10*3/uL RBC 3.39 L (4.60-5.80) X10*6/uL Hgb 10.3 L (14.0-18.0) g/dl Hct 31.9 L (42.0-52.0) % MCV 94.1 (80.0-98.0) fL MCH 30.4 (27.0-33.0) pg MCHC 32.3 (31.0-36.0) g/dl RDW 15.6 (11.0-16.0) % Plt Count 78 L (160-400) X10*3/uL MPV 10.4 (9.4-12.4) fL Immature Gran % (Auto) 0.3 (0.0-0.4) % Neut % (Auto) 77.8 H (45-73) % Lymph % (Auto) 10.2 L (20-40) % [place] % (Auto) 9.8 (2-11) % Eos % (Auto) 1.6 (0-4) % Baso % (Auto) 0.3 (0-2) % Lymph # (Auto) 0.6 L (1.2-4.9) X10*3/uL [place] # (Auto) 0.6 (0.1-1.2) X10*3/uL Eos # (Auto) 0.1 (0.0-0.4) X10*3/uL Baso # (Auto) 0.0 (0.0-0.2) X10*3/uL Abs Immat Gran (auto) 0.02 (0.00-0.03) X10*3/uL Absolute Neuts (auto) 4.9 (2.0-8.3) x10*3/uL Absolute Nucleated RBC 0.000 (0.0-0.012) X10*3/uL Nucleated RBC % (auto) 0.0 (0.0-0.2) /100WBC Sodium 135 (135-145) mmol/L Potassium 3.7 (3.3-5.1) mmol/L Chloride 102 (96-108) mmol/L Carbon Dioxide 23 (22-29) mmol/L Anion Gap 14 (12-20) BUN 31 H (9-16) mg/dL Creatinine 1.51 H (0.5-1.4) mg/dL Estim Creat Clear Calc 45.6 Estimated GFR 46 Random Glucose 115 (60-115) mg/dL Calcium 9.1 (8.4-10.2) mg/dL Troponin I High Sens 49.9 H (<3.5-35.0) ng/L COVID-19 (BASHIR) (Negative) COVID-19 Clin Com 02/14/22 Range/Units 21:40 WBC (4.8-10.8) X10*3/uL RBC (4.60-5.80) X10*6/uL Hgb (14.0-18.0) g/dl Hct (42.0-52.0) % MCV (80.0-98.0) fL MCH (27.0-33.0) pg MCHC (31.0-36.0) g/dl RDW (11.0-16.0) % Plt Count (160-400) X10*3/uL MPV (9.4-12.4) fL Immature Gran % (Auto) (0.0-0.4) % Neut % (Auto) (45-73) % Lymph % (Auto) (20-40) % [place] % (Auto) (2-11) % Eos % (Auto) (0-4) % Baso % (Auto) (0-2) % Lymph # (Auto) (1.2-4.9) X10*3/uL [place] # (Auto) (0.1-1.2) X10*3/uL Eos # (Auto) (0.0-0.4) X10*3/uL Baso # (Auto) (0.0-0.2) X10*3/uL Abs Immat Gran (auto) (0.00-0.03) X10*3/uL Absolute Neuts (auto) (2.0-8.3) x10*3/uL Absolute Nucleated RBC (0.0-0.012) X10*3/uL Nucleated RBC % (auto) (0.0-0.2) /100WBC Sodium (135-145) mmol/L Potassium (3.3-5.1) mmol/L Chloride (96-108) mmol/L Carbon Dioxide (22-29) mmol/L Anion Gap (12-20) BUN (9-16) mg/dL Creatinine (0.5-1.4) mg/dL Estim Creat Clear Calc Estimated GFR Random Glucose (60-115) mg/dL Calcium (8.4-10.2) mg/dL Troponin I High Sens (<3.5-35.0) ng/L COVID-19 (BASHIR) Negative (Negative) COVID-19 Clin Com See Note Imaging Data Chest x-ray: Radiologist's impression: IMPRESSION: Chronic appearing coarsened reticular markings again seen without superimposed overt edema or infectious etiology. Chronic postoperative changes. ? Of note, there does appear to have been interval migration of a retained epicardial pacing wire when compared to the 02/14/2022 study. This can rarely occur and is of uncertain significance. A CT scan of the chest may better delineate the current location of this wire. Discharge Plan Discharge Clinical Impression: CHF (congestive heart failure) Patient Disposition: Admitted As Inpatient
[2022-02-14 21:35] VITALS: BP 108/65; PULSE 94; RESP 19; TEMP 36.6; O2SAT 100
[2022-02-14] MEDS: Metoprolol Succinate ER 25 MG TAB.ER.24H PO (21:39)
[2022-02-14] MEDS: Digoxin 0.125 MG TABLET PO (21:40)
[2022-02-14 22:09] LABS: COVID-19 Test Negative (Negative); IDNOW Serial# 55D5AD1C
--- NOTE | 2022-02-14 22:13 | PM.IMHP ---
History of Present Illness Date of Service: 02/14/22 Chief Complaint: leg swelling 72-year-old male with a past medical history of hypertension, CKD, CHF, asthma, history of aortic valve repair/CABG in 2014, history of mitral valve repair/Maze procedures/tricuspid repair August 2021, AFib on Eliquis, inguinal hernia presented to the hospital today with a chief complaint of shortness of breath/edema. Most of the history provided with the patient patient's the bedside. Reportedly patient been having shortness of breath-mentions it has been chronic; also report he has been having increased leg swelling; Follows with Dr. Li ace his primary strategic solutions consultant who suggested him to go to the ER for IV diuresis. Denies any fevers and chills. Reports he has been having cough-reports is chronic no new change. Also mentions he has inguinal hernia which has been gradually getting worse, has seen his primary surgeon who suggested currently it is reducible and will plan for surgery once cleared by Cardiology. Denies any new changes in his and granular hernia pain. Denies any urinary complaints. Denies any chest pain or palpitations. Review of all other systems is negative except mentioned above ER course: Per ER team patient noted to have peripheral edema; vitals are stable blood pressure on the soft side; CBC within the normal limits; chemistry showed creatinine of 1.5 on; chest x-ray showed chronic appearing reticular markings without any superimposed edema or infectious etiology. Initial troponin was 46; EKG showed no acute changes Discussed with Dr. Lubin; who suggested admission to the hospital for further management. [facility] Medical History Acute exacerbation of CHF (congestive heart failure) Afib Asthma CHF (congestive heart failure) CKD (chronic kidney disease) Headache Hx of carotid stenosis Hypertension Mitral valve regurgitation On anticoagulant therapy On beta juana at home Tricuspid valve regurgitation Surgical History H/O aortic valve repair (~2014) History of decompression of ulnar nerve History of detached retina repair History 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) Social History Household Members: None Housing: House Do you presently have visiting nurse or other home services: No Alcohol intake: current Alcohol intake frequency: holidays/special occasions only Patient Tobacco Use Status: Never used Tobacco Use of substances other than those prescribed or required for medical reasons: No Advance Directives: No Advance Directives Information Provided: No Current occupational status: retired Meds Allergies Allergy/AdvReac Type Severity Reaction Status Date / Time adhesive Allergy Severe Hives Verified 07/28/21 00:02 CASHEWS Allergy Severe Anaphylaxis Uncoded 07/28/21 00:02 peanuts Allergy Severe Anaphylaxis Uncoded 07/28/21 00:02 Active Medications: Current Medications Acetaminophen (Acetaminophen 325 Mg Tablet) 650 mg PO Q6H PRN PRN Reason: Pain, Mild (Pain Scale 1-3) Albuterol Sulfate (Albuterol Sulfate 90 Mcg 8 Gm Inhaler) 2 puff INHALE DAILY [facility] Apixaban (Apixaban 5 Mg Tablet) 5 mg PO BID [facility] Atorvastatin Calcium (Atorvastatin Calcium 40 Mg Tablet) 40 mg PO BEDTIME [facility] Digoxin (Digoxin 0.125 Mg Tablet) mg PO Q OTHER DAY [facility] Furosemide (Furosemide 20 Mg Tablet) 20 mg PO DAILY [facility]; Protocol Latanoprost (Latanoprost 0.005 % Ophth Elena 2.5 Ml Drops) 1 drop EYE-BOTH BEDTIME [facility] Melatonin (Melatonin 3 Mg Tablet) 6 mg PO BEDTIME PRN PRN Reason: Insomnia Metoprolol Succinate (Metoprolol Succinate Er 25 Mg Tab.Er.24h) 25 mg PO BID [facility]; Protocol Montelukast Sodium (Montelukast Sodium 10 Mg Tablet) 10 mg PO BEDTIME [facility] Non-Formulary Medication (Budesonide-Formoterol [Symbicort]) 2 puff INHALE BID [facility] Pharmacy Consult (Consult Rx Perform Med Rec) 1 each MISCELLANE ONCE PRN PRN Reason: Consult order Senna (Sennosides 8.6 Mg Tablet) 17.2 mg PO BEDTIME PRN PRN Reason: Constipation Sodium Chloride (0.9 % Sodium Chloride Flush 3 Ml Syringe) 3 ml IVFLUSH QSHIFT [facility] Spironolactone (Spironolactone 25 Mg Tablet) 25 mg PO DAILY [facility]; Protocol Home Medications Medication Instructions Recorded Confirmed Last Taken Type albuterol sulfate 90 mcg/actuation 2 puff INHALATION DAILY 04/08/21 02/14/22 05/06/21 History aerosol inhaler (Proventil HFA) apixaban 5 mg tablet (Eliquis) 1 tab PO BID 04/08/21 02/14/22 05/06/21 History ascorbic acid (vitamin C) 500 mg 1,000 mg PO DAILY@12 04/08/21 05/06/21 05/05/21 History tablet (Vitamin C) atorvastatin 40 mg tablet 1 tab PO BEDTIME 04/08/21 02/14/22 05/05/21 History budesonide-formoterol HFA 160 2 puff INHALATION BID 04/08/21 02/14/22 05/06/21 History mcg-4.5 mcg/actuation aerosol inhaler (Symbicort) epinephrine 0.3 mg/0.3 mL 0.3 mg IM Q10M PRN 04/08/21 05/06/21 Unknown History injection, auto-injector hawthorn green 450 mg capsule 450 mg PO BEDTIME 04/08/21 05/06/21 05/05/21 History lactobacillus combination no.4 3 3,000 mmu cells PO DAILY@04/08/21 05/06/21 05/05/21 History billion cell capsule (Probiotic) latanoprost 0.005 % eye drops 1 drp OPHTHALMIC (EYE) BEDTIME 04/08/21 02/14/22 05/05/21 History oiugs-[id number]-epa-fish oil 120 1 cap PO BEDTIME 04/08/21 05/06/21 05/05/21 History mg-180 mg-60 mg-1,200 mg capsule, DR (Fish Oil) spironolactone 25 mg tablet 1 tab PO DAILY 04/08/21 02/14/22 05/06/21 History garlic 1,000 mg capsule 1,000 mg PO DAILY@12 05/06/21 05/06/21 05/05/21 History montelukast 10 mg tablet 1 tab PO BEDTIME 05/06/21 02/14/22 05/05/21 History multivitamin 1 tab PO DAILY 05/06/21 05/06/21 05/06/21 History bumetanide 1 mg tablet 2 tab PO DAILY 02/14/22 02/14/22 Unknown History digoxin 125 mcg (0.125 mg) tablet 1 tab PO Q OTHER DAY 02/14/22 02/14/22 Unknown History metoprolol succinate 25 mg 1 tab PO BID 02/14/22 02/14/22 Unknown History tablet,extended release 24 hr Physical Exam Vital Signs and Narrative: Vital Signs: Last Vital Signs Temp 97.8 F 02/14/22 21:35 Pulse 94 02/14/22 21:35 Resp 19 02/14/22 21:35 BP 108/65 02/14/22 21:35 Pulse Ox 100 02/14/22 21:35 BMI result Body Mass Index 28.3 Gen: Appears be in no acute distress. Speaks in full sentences. Breathing comfortably HEENT: NCAT, Moist mucosa. Pulmonary: Coarse breath sounds CVS: Normal S1-S2 Abdomen: BS+, Soft, Nontender Extremities: Warm well perfused; 3+ pitting edema Neuro: Alert and awake. Grossly nonfocal Results Labs CBC and Chem 7: 02/14/22 16:34 02/14/22 16:34 Labs: Laboratory Results - last 24 hr 02/14/22 02/14/22 02/14/22 16:34 16:34 16:34 MCV 94.1 MCH 30.4 MCHC 32.3 RDW 15.6 Plt Count 78 L MPV 10.4 Immature Gran % (Auto) 0.3 Neut % (Auto) 77.8 H Lymph % (Auto) 10.2 L Ashley % (Auto) 9.8 Eos % (Auto) 1.6 Baso % (Auto) 0.3 Lymph # (Auto) 0.6 L Ashley # (Auto) 0.6 Eos # (Auto) 0.1 Baso # (Auto) 0.0 Abs Immat Gran (auto) 0.02 Absolute Neuts (auto) 4.9 Absolute Nucleated RBC 0.000 Nucleated RBC % (auto) 0.0 Anion Gap 14 Estim Creat Clear Calc 45.6 Estimated GFR 46 Random Glucose 115 Calcium 9.1 Troponin I High Sens 49.9 H COVID-19 (BASHIR) COVID-19 Clin Com 02/14/22 21:40 MCV MCH MCHC RDW Plt Count MPV Immature Gran % (Auto) Neut % (Auto) Lymph % (Auto) Ashley % (Auto) Eos % (Auto) Baso % (Auto) Lymph # (Auto) Ashley # (Auto) Eos # (Auto) Baso # (Auto) Abs Immat Gran (auto) Absolute Neuts (auto) Absolute Nucleated RBC Nucleated RBC % (auto) Anion Gap Estim Creat Clear Calc Estimated GFR Random Glucose Calcium Troponin I High Sens COVID-19 (BASHIR) Negative COVID-19 Clin Com See Note Imaging Radiologist's Impressions: Impressions Chest X-Ray 02/14/22 16:44 IMPRESSION: Chronic appearing coarsened reticular markings again seen without superimposed overt edema or infectious etiology. Chronic postoperative changes. Of note, there does appear to have been interval migration of a retained epicardial pacing wire when compared to the 02/14/2022 study. This can rarely occur and is of uncertain significance. A CT scan of the chest may better delineate the current location of this wire. This critical result was discussed with Zayra CHUNG at 02/14/2022 4:55 PM and it was ascertained that the content and urgency of the report was understood at the time of direct communication. Assessment and Plan Plan 72-year-old male with a past medical history of hypertension, CKD, CHF, asthma, history of aortic valve repair/CABG in 2014, history of mitral valve repair/Maze procedures/tricuspid repair August 2021, AFib on Eliquis, inguinal hernia presented to the hospital today with a chief complaint of shortness of breath/edema. CHF: Will hold home Bumex. Start with Lasix 20 mg IV daily(patient reported that he had drop in blood pressures acutely with higher doses before) ProBNP pending For family patient recent echocardiogram showed EF of 20%. (will defer to the day team to obtain records from [facility]) Daily weights I's and O's Dr. Lubin from Cardiology was notified Initial troponin 46-repeat 1 pending; likely the setting of demand. Patient denies any chest pain. EKG nonischemic Continue home Aldactone. Atrial fibrillation: Heart rate ranging between 90-110. Continue home Eliquis, metoprolol, digoxin. Will obtain digoxin Levels Abnormal chest x-ray: Chest x-ray showed prominent interstitial reticular findings. Outpatient follow-up with the PCP/pulmonology. Patient denies any new cough or sputum production. History of asthma: Stable. History of CKD: Patient's creatinine on presentation was 1.5. Patient had similar values in the past. Monitor renal function while diuresing. Inguinal Hernia: Reports he had chronic pain. Denies any new changes. Mentions it has been gradually increasing in size. Will consult General surgery History of glaucoma: Continue home eye drops DVT prophylaxis: Patient on Eliquis Code status: Full code; confirmed with the patient's family at bedside Quality Stroke Does the patient have a stroke diagnosis?: No VTE Prior VTE?: No VTE Risk Level:: Medical - moderate - high VTE Device Contraindication: Treatment Not Indicated VTE Drug Contraindication: N/A - Med Ordered
[2022-02-14 22:36] VITALS: BP 98/73; PULSE 92; RESP 18; O2SAT 100
[2022-02-14] MEDS: Atorvastatin Calcium 40 MG TABLET PO (22:37)
[2022-02-14] MEDS: Apixaban 5 MG TABLET PO (22:37)
[2022-02-14 22:38] VITALS: BP 105/71
[2022-02-14 23:29] LABS: B Type Natriuretic Peptide 1618 pg/mL (<100)
[2022-02-15] VITALS (11 sets, daily range): BP systolic 99–136; BP diastolic 61–85; PULSE 76–126; RESP 16–18; TEMP 36.5–36.9; O2SAT 96–100
[2022-02-15 07:11] LABS: MANUAL DIFF FLAG NO
[2022-02-15 07:22] LABS: Basophils Percent Auto 0.5 % (0-2); Eosinophils Absolute Auto 0.1 X10*3/uL (0.0-0.4); Hematocrit 32.3 % (42.0-52.0); Hemoglobin 10.5 g/dl (14.0-18.0); Imm Gran Abs Auto 0.03 X10*3/uL (0.00-0.03); Imm Gran Pct Auto 0.5 % (0.0-0.4); Lymphocytes Absolute Auto 0.7 X10*3/uL (1.2-4.9); Lymphocytes Percent Auto 13.1 % (20-40); Mean Corpuscular HGB Conc 32.5 g/dl (31.0-36.0); Mean Corpuscular Hemoglobin 30.9 pg (27.0-33.0); Mean Platelet Volume 10.7 fL (9.4-12.4); Monocytes Absolute Auto 0.5 X10*3/uL (0.1-1.2); Monocytes Percent Auto 9.1 % (2-11); Neutrophils Absolute Auto 4.2 x10*3/uL (2.0-8.3); Neutrophils Percent Auto 74.8 % (45-73); Platelet Count 80 X10*3/uL (160-400); Red Cell Distribution Width 15.5 % (11.0-16.0); White Blood Count 5.6 X10*3/uL (4.8-10.8)
[2022-02-15 07:37] LABS: Anion Gap 13 (12-20); Blood Urea Nitrogen 29 mg/dL (9-16); Calcium 9.1 mg/dL (8.4-10.2); Carbon Dioxide 26 mmol/L (22-29); Chloride 102 mmol/L (96-108); Creatinine Clr Calc Pharmacy 51.8; Estimated Glomerular Filt Rate 53; Glucose Random 86 mg/dL (60-115); Potassium 3.8 mmol/L (3.3-5.1); Sodium 137 mmol/L (135-145)
--- NOTE | 2022-02-15 08:18 | PC.NURSE ---
Pt A&Ox4, LCA at this time, BLE edema +2 pitting. Awaiting bed assignment upstairs. No complaints of pain at this time. Pt refused IV access. Call lópez within reach. Will continue to monitor.
[2022-02-15] MEDS: Fluticasone/Vilanterol 200/25 BLST.W.DEV 1 PUFF INHALE (09:09)
[2022-02-15] MEDS: Furosemide 20 MG TABLET PO (09:23)
[2022-02-15] MEDS: Apixaban 5 MG TABLET PO ×2 (09:23→20:49)
[2022-02-15] MEDS: Spironolactone 25 MG TABLET PO (09:23)
[2022-02-15] MEDS: Metoprolol Succinate ER 25 MG TAB.ER.24H PO ×2 (09:24→20:49)
--- NOTE | 2022-02-15 10:19 | P.PNIM_ITS ---
Subjective Subjective Date of Service: 02/15/22 Interval History: cc: sob, le edema interval history: unchanged Cardiovascular Cardiovascular: Reports no additional cardiovascular complaints Respiratory Respiratory: Reports no additional respiratory complaints Physical Exam Vital Signs: Vital Signs: Last Vital Signs Temp 98 F 02/15/22 09:31 Pulse 110 H 02/15/22 09:31 Resp 18 02/15/22 09:31 BP 133/78 02/15/22 09:31 Pulse Ox 100 02/15/22 09:31 BMI result Body Mass Index 28.3 General: AO X 3, no acute distress Resp: minimal basilar crackles, no accessory muscles used CVS: S1,S2,irregular rapid, 2+ edema GI: soft, non tender, non distended, hernia Neuro: motor grossly intact, alert Psych: appropriate affect, appropriate insight Objective Data Active Medications Acetaminophen (Acetaminophen 325 Mg Tablet) 650 mg PO Q6H PRN PRN Reason: Pain, Mild (Pain Scale 1-3) Albuterol Sulfate (Albuterol Sulfate 90 Mcg 8 Gm Inhaler) 2 puff INHALE Q3H PRN PRN Reason: sob Apixaban (Apixaban 5 Mg Tablet) 5 mg PO BID [facility] Last Admin: 02/15/22 09:23 Dose: 5 mg Documented by: JAMILAH Atorvastatin Calcium (Atorvastatin Calcium 40 Mg Tablet) 40 mg PO BEDTIME [facility] Last Admin: 02/14/22 22:37 Dose: 40 mg Documented by: NIKKIE Digoxin (Digoxin 0.125 Mg Tablet) 0.125 mg PO Q48H [facility] Fluticasone/Vilanterol (Fluticasone/Vilanterol 200/25 Blst.W.Dev) 1 puff INHALE RDAILY [facility] Last Admin: 02/15/22 09:09 Dose: 1 puff Documented by: PRINCESS Furosemide (Furosemide 20 Mg Tablet) 20 mg PO DAILY [facility]; Protocol Last Admin: 02/15/22 09:23 Dose: 20 mg Documented by: JAMILAH Latanoprost (Latanoprost 0.005 % Ophth Elena 2.5 Ml Drops) 1 drop EYE-BOTH BEDTIME [facility] Last Admin: 02/14/22 22:39 Dose: Not Given Documented by: NIKKIE Non-Admin Reason: Med Not Available Melatonin (Melatonin 3 Mg Tablet) 6 mg PO BEDTIME PRN PRN Reason: Insomnia Metoprolol Succinate (Metoprolol Succinate Er 25 Mg Tab.Er.24h) 25 mg PO BID [facility]; Protocol Last Admin: 02/15/22 09:24 Dose: 25 mg Documented by: JAMILAH Montelukast Sodium (Montelukast Sodium 10 Mg Tablet) 10 mg PO BEDTIME [facility] Pharmacy Consult (Consult Rx Perform Med Rec) 1 each MISCELLANE ONCE PRN PRN Reason: Consult order Pharmacy Consult (Consult Rx Perform Med Rec) 1 each MISCELLANE ONCE PRN PRN Reason: Consult order Senna (Sennosides 8.6 Mg Tablet) 17.2 mg PO BEDTIME PRN PRN Reason: Constipation Sodium Chloride (0.9 % Sodium Chloride Flush 3 Ml Syringe) 3 ml IVFLUSH QSHIFT [facility] Last Admin: 02/15/22 08:05 Dose: Not Given Documented by: PHAM Non-Admin Reason: No Access Spironolactone (Spironolactone 25 Mg Tablet) 25 mg PO DAILY [facility]; Protocol Last Admin: 02/15/22 09:23 Dose: 25 mg Documented by: JAMILAH Labs CBC & Chem 7: 02/15/22 07:03 02/15/22 07:03 Labs: Laboratory Results - last 24 hr 02/14/22 02/14/22 02/14/22 16:34 16:34 16:34 MCV 94.1 MCH 30.4 MCHC 32.3 RDW 15.6 Plt Count 78 L MPV 10.4 Immature Gran % (Auto) 0.3 Neut % (Auto) 77.8 H Lymph % (Auto) 10.2 L Mobile % (Auto) 9.8 Eos % (Auto) 1.6 Baso % (Auto) 0.3 Lymph # (Auto) 0.6 L Mobile # (Auto) 0.6 Eos # (Auto) 0.1 Baso # (Auto) 0.0 Abs Immat Gran (auto) 0.02 Absolute Neuts (auto) 4.9 Absolute Nucleated RBC 0.000 Nucleated RBC % (auto) 0.0 Anion Gap 14 Estim Creat Clear Calc 45.6 Estimated GFR 46 Random Glucose 115 Calcium 9.1 Magnesium Troponin I High Sens 49.9 H B-Natriuretic Peptide COVID-19 ([facility]ASHIR) COVID-19 Clin Com 02/14/22 02/14/22 02/15/22 21:40 22:42 07:03 MCV 95.0 MCH 30.9 MCHC 32.5 RDW 15.5 Plt Count 80 L MPV 10.7 Immature Gran % (Auto) 0.5 H Neut % (Auto) 74.8 H Lymph % (Auto) 13.1 L Mobile % (Auto) 9.1 Eos % (Auto) 2.0 Baso % (Auto) 0.5 Lymph # (Auto) 0.7 L Mobile # (Auto) 0.5 Eos # (Auto) 0.1 Baso # (Auto) 0.0 Abs Immat Gran (auto) 0.03 Absolute Neuts (auto) 4.2 Absolute Nucleated RBC 0.000 Nucleated RBC % (auto) 0.0 Anion Gap Estim Creat Clear Calc Estimated GFR Random Glucose Calcium Magnesium Troponin I High Sens 53.0 H B-Natriuretic Peptide 1618 H COVID-19 (BASHIR) Negative COVID-19 Clin Com See Note 02/15/22 07:03 MCV MCH MCHC RDW Plt Count MPV Immature Gran % (Auto) Neut % (Auto) Lymph % (Auto) Mobile % (Auto) Eos % (Auto) Baso % (Auto) Lymph # (Auto) Mobile # (Auto) Eos # (Auto) Baso # (Auto) Abs Immat Gran (auto) Absolute Neuts (auto) Absolute Nucleated RBC Nucleated RBC % (auto) Anion Gap 13 Estim Creat Clear Calc 51.8 Estimated GFR 53 Random Glucose 86 Calcium 9.1 Magnesium 2.0 Troponin I High Sens B-Natriuretic Peptide COVID-19 ([facility]IR) COVID-19 Clin Com Assessment and Plan (1) CHF (congestive heart failure): Status: Acute Plan 72M sent in by cardiology for chf and afib with rvr acute on chronic systolic chf increased lasix to 40mg iv bid follow up cardio monitor bmp, mg continue toprol, aldactone chronic afib with rvr on toprol, dig, minimal symptomatic follow up cardio, monitor on tele eliquis CKD III stable inguinal hernia with pain surgery eval COPD prn bronchodilators inhaled LABA/ICS liver cirrhosis complicated by thrombocytopenia appears compensated, ?NAFLD vs cardiogenic check lfts dvt prophylaxis - on eliquis full code reason for continued hospitalization: needs better heart rate control, iv diuresis Quality Stroke Does the patient have a stroke diagnosis?: No VTE Prior VTE?: No VTE Risk Level:: Medical - moderate - high VTE Device Contraindication: Treatment Not Indicated VTE Drug Contraindication: N/A - Med Ordered
--- NOTE | 2022-02-15 14:10 | P.CONGS_ITS ---
History of Present Illness Consult details Consult date: 02/15/22 Narrative: 72-year-old male admitted yesterday because of acute on chronic failure, referred to the surgical service because of a chronic right hernia. He says that he has had this for many years. He states that his seems to have been increasing in size. He describes discomfort with this. He says that he is actually seeing a surgeon in [place] but he had been advised to be by Cardiology prior to any surgical intervention for his hernia. He does have multiple medical problems including history of mitral valve repair, chronic atrial fibrillation, chronic kidney disease, and a question of liver cirrhosis in the past. He does have baseline shortness of breath with exertion. Review of Systems Constitutional: Constitutional: Denies chills and Denies fever(s) Cardiovascular: Cardiovascular: Denies chest pain, Denies dyspnea and Reports dyspnea on exertion Respiratory: Respiratory: Denies cough, Denies dyspnea and Reports dyspnea on exertion Gastrointestinal: Gastrointestinal: Denies hematochezia and Denies change in bowel habits Genitourinary: Genitourinary: Denies hematuria and Denies difficulty urinating Musculoskeletal: Musculoskeletal: Denies back pain and Denies limited range of motion Neurologic: Denies focal weakness and Denies convulsions Psychiatric: Psychiatric: Denies depression and Denies mood swings PMFSH Past Medical History Medical History (Updated 02/15/22 @ 14:13 by Yohannes Weems MD) Acute exacerbation of CHF (congestive heart failure) Afib Asthma CHF (congestive heart failure) CKD (chronic kidney disease) Headache Hx of carotid stenosis Hypertension Mitral valve regurgitation On anticoagulant therapy On beta juana at home Right inguinal hernia Tricuspid valve regurgitation Surgical History Surgical History H/O aortic valve repair (~2014) History of decompression of ulnar nerve History of detached retina repair History 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) Social History Social History Household Members: None Housing: House Do you presently have visiting nurse or other home services: No Alcohol intake: current Alcohol intake frequency: holidays/special occasions only Patient Tobacco Use Status: Never used Tobacco Use of substances other than those prescribed or required for medical reasons: No Have you been hit, kicked, punched, or otherwise hurt by someone within the past year? If so, by whom?: No Do you feel safe in your current relationship?: Yes Is there a partner from a previous relationship who is making you feel unsafe now?: No Are you made to feel afraid or neglected: No Advance Directives: No Advance Directives Information Provided: No Do you have thoughts of harming others: Vague Do you have a plan to hurt others: No Plan Recently lost weight without trying: No Nutrition Risks: No Nutritional Risk Poor oral hygiene: No Current occupational status: retired Meds Allergies Allergy/AdvReac Type Severity Reaction Status Date / Time adhesive Allergy Severe Hives Verified 07/28/21 00:02 CASHEWS Allergy Severe Anaphylaxis Uncoded 07/28/21 00:02 peanuts Allergy Severe Anaphylaxis Uncoded 07/28/21 00:02 Active Medications: Current Medications Acetaminophen (Acetaminophen 325 Mg Tablet) 650 mg PO Q6H PRN PRN Reason: Pain, Mild (Pain Scale 1-3) Albuterol Sulfate (Albuterol Sulfate 90 Mcg 8 Gm Inhaler) 2 puff INHALE Q3H PRN PRN Reason: sob Apixaban (Apixaban 5 Mg Tablet) 5 mg PO BID [facility] Last Admin: 02/15/22 09:23 Dose: 5 mg Documented by: Atorvastatin Calcium (Atorvastatin Calcium 40 Mg Tablet) 40 mg PO BEDTIME [facility] Last Admin: 02/14/22 22:37 Dose: 40 mg Documented by: Digoxin (Digoxin 0.125 Mg Tablet) 0.125 mg PO Q48H [facility] Fluticasone/Vilanterol (Fluticasone/Vilanterol 200/25 Blst.W.Dev) 1 puff INHALE RDAILY [facility] Last Admin: 02/15/22 09:09 Dose: 1 puff Documented by: Furosemide (Furosemide 40 Mg/4 Ml Vial) 40 mg IVPUSH BID@0900,1800 [facility]; Protocol Latanoprost (Latanoprost 0.005 % Ophth Elena 2.5 Ml Drops) 1 drop EYE-BOTH BEDTIME [facility] Last Admin: 02/14/22 22:39 Dose: Not Given Documented by: Melatonin (Melatonin 3 Mg Tablet) 6 mg PO BEDTIME PRN PRN Reason: Insomnia Metoprolol Succinate (Metoprolol Succinate Er 25 Mg Tab.Er.24h) 25 mg PO BID [facility]; Protocol Last Admin: 02/15/22 09:24 Dose: 25 mg Documented by: Montelukast Sodium (Montelukast Sodium 10 Mg Tablet) 10 mg PO BEDTIME [facility] Pharmacy Consult (Consult Rx Perform Med Rec) 1 each MISCELLANE ONCE PRN PRN Reason: Consult order Pharmacy Consult (Consult Rx Perform Med Rec) 1 each MISCELLANE ONCE PRN PRN Reason: Consult order Senna (Sennosides 8.6 Mg Tablet) 17.2 mg PO BEDTIME PRN PRN Reason: Constipation Sodium Chloride (0.9 % Sodium Chloride Flush 3 Ml Syringe) 3 ml IVFLUSH QSHIFT [facility] Last Admin: 02/15/22 08:05 Dose: Not Given Documented by: Spironolactone (Spironolactone 25 Mg Tablet) 25 mg PO DAILY [facility]; Protocol Last Admin: 02/15/22 09:23 Dose: 25 mg Documented by: Home Medications Medication Instructions Recorded Confirmed Last Taken Type albuterol sulfate 90 mcg/actuation 2 puff INHALATION DAILY 04/08/21 02/14/22 05/06/21 History aerosol inhaler (Proventil HFA) apixaban 5 mg tablet (Eliquis) 1 tab PO BID 04/08/21 02/14/22 05/06/21 History ascorbic acid (vitamin C) 500 mg 1,000 mg PO DAILY@12 04/08/21 05/06/21 05/05/21 History tablet (Vitamin C) atorvastatin 40 mg tablet 1 tab PO BEDTIME 04/08/21 02/14/22 05/05/21 History budesonide-formoterol HFA 160 2 puff INHALATION BID 04/08/21 02/14/22 05/06/21 History mcg-4.5 mcg/actuation aerosol inhaler (Symbicort) epinephrine 0.3 mg/0.3 mL 0.3 mg IM Q10M PRN 04/08/21 05/06/21 Unknown History injection, auto-injector haw[place]orn green 450 mg capsule 450 mg PO BEDTIME 04/08/21 05/06/21 05/05/21 History lactobacillus combination no.4 3 3,000 mmu cells PO DAILY@12 04/08/21 05/06/21 05/05/21 History billion cell capsule (Probiotic) latanoprost 0.005 % eye drops 1 drp OPHTHALMIC (EYE) BEDTIME 04/08/21 02/14/22 05/05/21 History joltl-7u-[id number]-epa-fish oil 120 1 cap PO BEDTIME 04/08/21 05/06/21 05/05/21 Hi story mg-180 mg-60 mg-1,200 mg capsule, DR (Fish Oil) spironolactone 25 mg tablet 1 tab PO DAILY 04/08/21 02/14/22 05/06/21 History garlic 1,000 mg capsule 1,000 mg PO DAILY@12 05/06/21 05/06/21 05/05/21 History montelukast 10 mg tablet 1 tab PO BEDTIME 05/06/21 02/14/22 05/05/21 History multivitamin 1 tab PO DAILY 05/06/21 05/06/21 05/06/21 History bumetanide 1 mg tablet 2 tab PO DAILY 02/14/22 02/14/22 Unknown History digoxin 125 mcg (0.125 mg) tablet 1 tab PO Q OTHER DAY 02/14/22 02/14/22 Unknown History metoprolol succinate 25 mg 1 tab PO BID 02/14/22 02/14/22 Unknown History tablet,extended release 24 hr Physical Exam Vital Signs: Vital Signs: Last Vital Signs Temp 98.5 F 02/15/22 12:00 Pulse 110 H 02/15/22 12:00 Resp 18 02/15/22 12:00 BP 105/69 02/15/22 12:00 Pulse Ox 100 02/15/22 12:00 BMI result Body Mass Index 28.3 Const: General: comfortable and no acute distress Orientation/consciousness: patient oriented x3 Neck: Neck: Yes no lymphadenopathy Resp: Auscultation: clear to auscultation bilaterally Cardio: Rhythm: abnormal rhythm GI: Other: Large right inguinal hernia, extending to the scrotum reducible, slightly tender Palpation (GI): Soft to palpation, nontender and no guarding Neuro: General: patient oriented x3 Results Labs Result diagrams: 02/15/22 07:03 02/15/22 07:03 Labs: Abnormal lab results 02/14/22 02/14/22 02/14/22 Range/Units 16:34 16:34 16:34 RBC 3.39 L (4.60-5.80) X10*6/uL Hgb 10.3 L (14.0-18.0) g/dl Hct 31.9 L (42.0-52.0) % Plt Count 78 L (160-400) X10*3/uL Immature Gran % (Auto) (0.0-0.4) % Neut % (Auto) 77.8 H (45-73) % Lymph % (Auto) 10.2 L (20-40) % Lymph # (Auto) 0.6 L (1.2-4.9) X10*3/uL BUN 31 H (9-16) mg/dL Creatinine 1.51 H (0.5-1.4) mg/dL Troponin I High Sens 49.9 H (<3.5-35.0) ng/L B-Natriuretic Peptide (<100) pg/mL 02/14/22 02/15/22 02/15/22 Range/Units 22:42 07:03 07:03 RBC 3.40 L (4.60-5.80) X10*6/uL Hgb 10.5 L (14.0-18.0) g/dl Hct 32.3 L (42.0-52.0) % Plt Count 80 L (160-400) X10*3/uL Immature Gran % (Auto) 0.5 H (0.0-0.4) % Neut % (Auto) 74.8 H (45-73) % Lymph % (Auto) 13.1 L (20-40) % Lymph # (Auto) 0.7 L (1.2-4.9) X10*3/uL BUN 29 H (9-16) mg/dL Creatinine (0.5-1.4) mg/dL Troponin I High Sens 53.0 H (<3.5-35.0) ng/L B-Natriuretic Peptide 1618 H (<100) pg/mL Short CBC 02/14/22 02/15/22 Range/Units 16:34 07:03 WBC 6.3 5.6 (4.8-10.8) X10*3/uL Hgb 10.3 L 10.5 L (14.0-18.0) g/dl Hct 31.9 L 32.3 L (42.0-52.0) % Plt Count 78 L 80 L (160-400) X10*3/uL BMP 02/14/22 02/15/22 16:34 07:03 Sodium 135 137 Potassium 3.7 3.8 Chloride 102 102 Carbon Dioxide 23 26 BUN 31 H 29 H Creatinine 1.51 H 1.33 Calcium 9.1 9.1 All other labs normal. Imaging Additional studies: Laboratory Results WBC 5.6 X10*3/uL (4.8-10.8) 02/15/22 07:03 RBC 3.40 X10*6/uL (4.60-5.80) L 02/15/22 07:03 Hgb 10.5 g/dl (14.0-18.0) L 02/15/22 07:03 Hct 32.3 % (42.0-52.0) L 02/15/22 07:03 MCV 95.0 fL (80.0-98.0) 02/15/22 07:03 MCH 30.9 pg (27.0-33.0) 02/15/22 07:03 MCHC 32.5 g/dl (31.0-36.0) 02/15/22 07:03 RDW 15.5 % (11.0-16.0) 02/15/22 07:03 Plt Count 80 X10*3/uL (160-400) L 02/15/22 07:03 MPV 10.7 fL (9.4-12.4) 02/15/22 07:03 Immature Gran % (Auto) 0.5 % (0.0-0.4) H 02/15/22 07:03 Neut % (Auto) 74.8 % (45-73) H 02/15/22 07:03 Lymph % (Auto) 13.1 % (20-40) L 02/15/22 07:03 [place] % (Auto) 9.1 % (2-11) 02/15/22 07:03 Eos % (Auto) 2.0 % (0-4) 02/15/22 07:03 Baso % (Auto) 0.5 % (0-2) 02/15/22 07:03 Lymph # (Auto) 0.7 X10*3/uL (1.2-4.9) L 02/15/22 07:03 [place] # (Auto) 0.5 X10*3/uL (0.1-1.2) 02/15/22 07:03 Eos # (Auto) 0.1 X10*3/uL (0.0-0.4) 02/15/22 07:03 Baso # (Auto) 0.0 X10*3/uL (0.0-0.2) 02/15/22 07:03 Abs Immat Gran (auto) 0.03 X10*3/uL (0.00-0.03) 02/15/22 07:03 Absolute Neuts (auto) 4.2 x10*3/uL (2.0-8.3) 02/15/22 07:03 Absolute Nucleated RBC 0.000 X10*3/uL (0.0-0.012) 02/15/22 07:03 Nucleated RBC % (auto) 0.0 /100WBC (0.0-0.2) 02/15/22 07:03 Sodium 137 mmol/L (135-145) 02/15/22 07:03 Potassium 3.8 mmol/L (3.3-5.1) 02/15/22 07:03 Chloride 102 mmol/L (96-108) 02/15/22 07:03 Carbon Dioxide 26 mmol/L (22-29) 02/15/22 07:03 Anion Gap 13 (12-20) 02/15/22 07:03 BUN 29 mg/dL (9-16) H 02/15/22 07:03 Creatinine 1.33 mg/dL (0.5-1.4) 02/15/22 07:03 Estim Creat Clear Calc 51.8 02/15/22 07:03 Estimated GFR 53 02/15/22 07:03 Random Glucose 86 mg/dL (60-115) 02/15/22 07:03 Calcium 9.1 mg/dL (8.4-10.2) 02/15/22 07:03 Magnesium 2.0 mg/dL (1.6-2.6) 02/15/22 07:03 Troponin I High Sens 53.0 ng/L (<3.5-35.0) H 02/14/22 22:42 B-Natriuretic Peptide 1618 pg/mL (<100) H 02/14/22 22:42 COVID-19 (BASHIR) Negative (Negative) 02/14/22 21:40 COVID-19 Clin Com See Note 02/14/22 21:40 Impressions Chest X-Ray 02/14/22 16:44 IMPRESSION: Chronic appearing coarsened reticular markings again seen without superimposed overt edema or infectious etiology. Chronic postoperative changes. Of note, there does appear to have been interval migration of a retained epicardial pacing wire when compared to the 02/14/2022 study. This can rarely occur and is of uncertain significance. A CT scan of the chest may better delineate the current location of this wire. This critical result was discussed with Zayra CHUNG at 02/14/2022 4:55 PM and it was ascertained that the content and urgency of the report was understood at the time of direct communication. Assessment and Plan (1) Right inguinal hernia: Status: Acute He has a large right inguinal scrotal hernia. This was reducible when he was placed supine. He is admitted for acute on chronic renal failure. His hernia does not seem to present with any acute symptoms. He does dressings this started have this repaired. He is seeing a surgeon in [place] and he is awaiting for clearance from his Cardiology prior to any surgical intervention. He does not require any acute intervention for the hernia. However, he if decides to have his surgery for repair done here at [place], we can follow him in the office to have this scheduled. In the meantime, he is to be treated for acute on chronic heart failure. Procedures Date of Service Date of Service: 02/15/22
--- NOTE | 2022-02-15 14:30 | P.CONCA_ITS ---
History of Present Illness History of Present Illness Date of Service: 02/15/22 Chief complaint: CHF Narrative: 72-year-old gentleman was background history of cirrhosis of liver, coronary disease with previous bypass surgery as well as aortic valve replacement. It appears he has chronic congestive do appear despite stated by the edema pain he was experiencing lower extremity edema and saw his channel turner and was advised to come to the emergency department. Is saying off and on he has felt somewhat orthopnea but it is not a frequent symptom. He has been started on IV diuretics but has not received any doses yet. It appears this is a chronic issue for him. He does not have any abdominal distension or ascites. It appears atrial fibrillation is also a chronic issue and not something new for him. His no recent echocardiogram in our system. It appears he had cardiomyopathy with EF of 45% based on previous cardiac consultation notes. We will get records for him. [facility] Past Medical History Medical History (Updated 02/15/22 @ 14:13 by Yohannes Weems MD) Acute exacerbation of CHF (congestive heart failure) Afib Asthma CHF (congestive heart failure) CKD (chronic kidney disease) Headache Hx of carotid stenosis Hypertension Mitral valve regurgitation On anticoagulant therapy On beta juana at home Right inguinal hernia Tricuspid valve regurgitation Surgical History Surgical History H/O aortic valve repair (~2014) History of decompression of ulnar nerve History of detached retina repair History 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) Social History Social History Household Members: None Housing: House Do you presently have visiting nurse or other home services: No Alcohol intake: current Alcohol intake frequency: holidays/special occasions only Patient Tobacco Use Status: Never used Tobacco Use of substances other than those prescribed or required for medical reasons: No Have you been hit, kicked, punched, or otherwise hurt by someone within the past year? If so, by whom?: No Do you feel safe in your current relationship?: Yes Is there a partner from a previous relationship who is making you feel unsafe now?: No Are you made to feel afraid or neglected: No Advance Directives: No Advance Directives Information Provided: No Do you have thoughts of harming others: Vague Do you have a plan to hurt others: No Plan Recently lost weight without trying: No Nutrition Risks: No Nutritional Risk Poor oral hygiene: No Current occupational status: retired Meds Allergies Allergy/AdvReac Type Severity Reaction Status Date / Time adhesive Allergy Severe Hives Verified 07/28/21 00:02 CASHEWS Allergy Severe Anaphylaxis Uncoded 07/28/21 00:02 peanuts Allergy Severe Anaphylaxis Uncoded 07/28/21 00:02 Active Medications: Current Medications Acetaminophen (Acetaminophen 325 Mg Tablet) 650 mg PO Q6H PRN PRN Reason: Pain, Mild (Pain Scale 1-3) Albuterol Sulfate (Albuterol Sulfate 90 Mcg 8 Gm Inhaler) 2 puff INHALE Q3H PRN PRN Reason: sob Apixaban (Apixaban 5 Mg Tablet) 5 mg PO BID [facility] Last Admin: 02/15/22 09:23 Dose: 5 mg Documented by: Atorvastatin Calcium (Atorvastatin Calcium 40 Mg Tablet) 40 mg PO BEDTIME [facility] Last Admin: 02/14/22 22:37 Dose: 40 mg Documented by: Digoxin (Digoxin 0.125 Mg Tablet) 0.125 mg PO Q48H [facility] Fluticasone/Vilanterol (Fluticasone/Vilanterol 200/25 Blst.W.Dev) 1 puff INHALE RDAILY [facility] Last Admin: 02/15/22 09:09 Dose: 1 puff Documented by: Furosemide (Furosemide 40 Mg/4 Ml Vial) 40 mg IVPUSH BID@0900,1800 [facility]; Protocol Latanoprost (Latanoprost 0.005 % Ophth Elena 2.5 Ml Drops) 1 drop EYE-BOTH BEDTIME [facility] Last Admin: 02/14/22 22:39 Dose: Not Given Documented by: Melatonin (Melatonin 3 Mg Tablet) 6 mg PO BEDTIME PRN PRN Reason: Insomnia Metoprolol Succinate (Metoprolol Succinate Er 25 Mg Tab.Er.24h) 25 mg PO BID [facility]; Protocol Last Admin: 02/15/22 09:24 Dose: 25 mg Documented by: Montelukast Sodium (Montelukast Sodium 10 Mg Tablet) 10 mg PO BEDTIME [facility] Pharmacy Consult (Consult Rx Perform Med Rec) 1 each MISCELLANE ONCE PRN PRN Reason: Consult order Pharmacy Consult (Consult Rx Perform Med Rec) 1 each MISCELLANE ONCE PRN PRN Reason: Consult order Senna (Sennosides 8.6 Mg Tablet) 17.2 mg PO BEDTIME PRN PRN Reason: Constipation Sodium Chloride (0.9 % Sodium Chloride Flush 3 Ml Syringe) 3 ml IVFLUSH QSHIFT [facility] Last Admin: 02/15/22 08:05 Dose: Not Given Documented by: Spironolactone (Spironolactone 25 Mg Tablet) 25 mg PO DAILY [facility]; Protocol Last Admin: 02/15/22 09:23 Dose: 25 mg Documented by: Home Medications Medication Instructions Recorded Confirmed Last Taken Type albuterol sulfate 90 mcg/actuation 2 puff INHALATION DAILY 04/08/21 02/14/22 05/06/21 History aerosol inhaler (Proventil HFA) apixaban 5 mg tablet (Eliquis) 1 tab PO BID 04/08/21 02/14/22 05/06/21 History ascorbic acid (vitamin C) 500 mg 1,000 mg PO DAILY@12 04/08/21 05/06/21 05/05/21 History tablet (Vitamin C) atorvastatin 40 mg tablet 1 tab PO BEDTIME 04/08/21 02/14/22 05/05/21 History budesonide-formoterol HFA 160 2 puff INHALATION BID 04/08/21 02/14/22 05/06/21 History mcg-4.5 mcg/actuation aerosol inhaler (Symbicort) epinephrine 0.3 mg/0.3 mL 0.3 mg IM Q10M PRN 04/08/21 05/06/21 Unknown History injection, auto-injector adán green 450 mg capsule 450 mg PO BEDTIME 04/08/21 05/06/21 05/05/21 History lactobacillus combination no.4 3 3,000 mmu cells PO DAILY@12 04/08/21 05/06/21 05/05/21 History billion cell capsule (Probiotic) latanoprost 0.005 % eye drops 1 drp OPHTHALMIC (EYE) BEDTIME 04/08/21 02/14/22 05/05/21 History fvmad-7u-mqb-epa-fish oil 120 1 cap PO BEDTIME 04/08/21 05/06/21 05/05/21 History mg-180 mg-60 mg-1,200 mg capsule, DR (Fish Oil) spironolactone 25 mg tablet 1 tab PO DAILY 04/08/21 02/14/22 05/06/21 History garlic 1,000 mg capsule 1,000 mg PO DAILY@12 05/06/21 05/06/21 05/05/21 History montelukast 10 mg tablet 1 tab PO BEDTIME 05/06/21 02/14/22 05/05/21 History multivitamin 1 tab PO DAILY 05/06/21 05/06/21 05/06/21 History bumetanide 1 mg tablet 2 tab PO DAILY 02/14/22 02/14/22 Unknown History digoxin 125 mcg (0.125 mg) tablet 1 tab PO Q OTHER DAY 02/14/22 02/14/22 Unknown History metoprolol succinate 25 mg 1 tab PO BID 02/14/22 02/14/22 Unknown History tablet,extended release 24 hr Physical Exam Vital Signs: Vital Signs: Last Vital Signs Temp 98.5 F 02/15/22 12:00 Pulse 110 H 02/15/22 12:00 Resp 18 02/15/22 12:00 BP 105/69 02/15/22 12:00 Pulse Ox 100 02/15/22 12:00 BMI result Body Mass Index 28.3 GENERAL APPEARANCE: in no acute distress, upset and frustrated. NECK: no carotid bruit, positive jugular venous distention. Positive hepatojugular reflux. SKIN: no suspicious lesions, warm and dry. HEART: no murmurs, irregular rate and rhythm. LUNGS: clear to auscultation bilaterally. ABDOMEN: soft, tenderness mid abdomen which is chronic. EXTREMITIES: 2+ edema to the knees. PERIPHERAL PULSES: equal. NEUROLOGIC: No gross deficits, AAO X 3 Objective Labs and Meds Result diagrams: 02/15/22 07:03 02/15/22 07:03 Lab results: Laboratory Results - last 24 hr 02/14/22 02/14/22 02/14/22 16:34 16:34 16:34 WBC 6.3 RBC 3.39 L Hgb 10.3 L Hct 31.9 L MCV 94.1 MCH 30.4 MCHC 32.3 RDW 15.6 Plt Count 78 L MPV 10.4 Immature Gran % (Auto) 0.3 Neut % (Auto) 77.8 H Lymph % (Auto) 10.2 L [place] % (Auto) 9.8 Eos % (Auto) 1.6 Baso % (Auto) 0.3 Lymph # (Auto) 0.6 L [place] # (Auto) 0.6 Eos # (Auto) 0.1 Baso # (Auto) 0.0 Abs Immat Gran (auto) 0.02 Absolute Neuts (auto) 4.9 Absolute Nucleated RBC 0.000 Nucleated RBC % (auto) 0.0 Sodium 135 Potassium 3.7 Chloride 102 Carbon Dioxide 23 Anion Gap 14 BUN 31 H Creatinine 1.51 H Estim Creat Clear Calc 45.6 Estimated GFR 46 Random Glucose 115 Calcium 9.1 Magnesium Troponin I High Sens 49.9 H B-Natriuretic Peptide COVID-19 ([facility]ASHIR) COVID-19 Clin Com 02/14/22 02/14/22 02/15/22 21:40 22:42 07:03 WBC 5.6 RBC 3.40 L Hgb 10.5 L Hct 32.3 L MCV 95.0 MCH 30.9 MCHC 32.5 RDW 15.5 Plt Count 80 L MPV 10.7 Immature Gran % (Auto) 0.5 H Neut % (Auto) 74.8 H Lymph % (Auto) 13.1 L [place] % (Auto) 9.1 Eos % (Auto) 2.0 Baso % (Auto) 0.5 Lymph # (Auto) 0.7 L [place] # (Auto) 0.5 Eos # (Auto) 0.1 Baso # (Auto) 0.0 Abs Immat Gran (auto) 0.03 Absolute Neuts (auto) 4.2 Absolute Nucleated RBC 0.000 Nucleated RBC % (auto) 0.0 Sodium Potassium Chloride Carbon Dioxide Anion Gap BUN Creatinine Estim Creat Clear Calc Estimated GFR Random Glucose Calcium Magnesium Troponin I High Sens 53.0 H B-Natriuretic Peptide 1618 H COVID-19 (BASHIR) Negative COVID-19 Clin Com See Note 02/15/22 07:03 WBC RBC Hgb Hct MCV MCH MCHC RDW Plt Count MPV Immature Gran % (Auto) Neut % (Auto) Lymph % (Auto) [place] % (Auto) Eos % (Auto) Baso % (Auto) Lymph # (Auto) [place] # (Auto) Eos # (Auto) Baso # (Auto) Abs Immat Gran (auto) Absolute Neuts (auto) Absolute Nucleated RBC Nucleated RBC % (auto) Sodium 137 Potassium 3.8 Chloride 102 Carbon Dioxide 26 Anion Gap 13 BUN 29 H Creatinine 1.33 Estim Creat Clear Calc 51.8 Estimated GFR 53 Random Glucose 86 Calcium 9.1 Magnesium 2.0 Troponin I High Sens B-Natriuretic Peptide COVID-19 (BASHIR) COVID-19 Clin Com Imaging Radiologist's impression: Impressions Chest X-Ray 02/14/22 16:44 IMPRESSION: Chronic appearing coarsened reticular markings again seen without superimposed overt edema or infectious etiology. Chronic postoperative changes. Of note, there does appear to have been interval migration of a retained epicardial pacing wire when compared to the 02/14/2022 study. This can rarely occur and is of uncertain significance. A CT scan of the chest may better delineate the current location of this wire. This critical result was discussed with Zayra CHUNG at 02/14/2022 4:55 PM and it was ascertained that the content and urgency of the report was understood at the time of direct communication. Assessment and Plan (1) CHF (congestive heart failure): Status: Acute Plan 72-year-old gentleman who has history of bypass surgery and aortic valve replacement in the past presenting for lower extremity edema and off and on orthopnea. Clinically he is volume overloaded. Agree with IV diuretics with close monitoring of electrolytes. Will need echocardiogram and some reports from his channel turner and will review them. Would not titrate beta-juana for the atrial fibrillation. Continue digoxin every other day and document a digoxin level. Avoid hypokalemia with digoxin because of that increases the risk of digitoxicity. Overall he seems quite frustrated by congestive heart failure management. Right now is overloaded and I agree with diuretics. Will have to review his records understand his previous challenges with congestive heart failure. Thank you for allowing me to participate in the care of your patient. Please feel free to contact me if you have any questions. Procedures Date of Service Date of Service: 02/15/22
--- NOTE | 2022-02-15 15:29 | MHC.CM.PN ---
PT REPORTS HE LIVES AT HOME WITH HIS , CATS AND NEW PRYDEINIG DU[place], SOPHIA HE REPORTS HE IS INDEPENDENT WITH CARE AND USES A CANE TO AMBULATE PT HAS A POA ON FILE PT REPORTS HE GOES TO [facility] IN [place] BUT DOES NOT KNOW THE NAME PT ONLY HAS GIC INSURANCE LISTED BUT REPORTS HE HAS MEDICARE SECONDARY IMM DELIVERED CM CALLED [facility]: PTS PCP IS NATASHA LOUIS [place] [facility], HOME NO SERVICES FAMILY TO TRANSPORT
[2022-02-15] MEDS: Acetaminophen 325 MG TABLET 650 MG PO (15:49)
[2022-02-15] MEDS: 0.9 % Sodium Chloride Flush 3 ML SYRINGE IVFLUSH ×2 (15:49→20:49)
[2022-02-15] MEDS: Furosemide 40 MG/4 ML VIAL IVPUSH (17:53)
[2022-02-15] MEDS: Montelukast Sodium 10 MG TABLET PO (20:49)
[2022-02-15] MEDS: Atorvastatin Calcium 40 MG TABLET PO (20:49)
[2022-02-15] MEDS: Latanoprost 0.005 % Ophth Sol 2.5 ML DROPS 1 DROP EYE-BOTH (20:50)
[2022-02-16] VITALS (7 sets, daily range): BP systolic 96–114; BP diastolic 58–73; PULSE 95–106; RESP 15–20; TEMP 36.7–37; O2SAT 97–100
[2022-02-16 06:02] LABS: Hematocrit 32.3 % (42.0-52.0); Hemoglobin 10.4 g/dl (14.0-18.0); Mean Corpuscular HGB Conc 32.2 g/dl (31.0-36.0); Mean Corpuscular Hemoglobin 30.3 pg (27.0-33.0); Mean Corpuscular Volume 94.2 fL (80.0-98.0); Red Blood Count 3.43 X10*6/uL (4.60-5.80); Red Cell Distribution Width 15.4 % (11.0-16.0); White Blood Count 4.1 X10*3/uL (4.8-10.8)
[2022-02-16 06:05] LABS: Platelet Count 74 X10*3/uL (160-400)
[2022-02-16 06:12] LABS: Alanine Aminotransferase 21 U/L (0-40); Albumin Level 3.7 g/dL (3.5-5.0); Alkaline Phosphatase 145 U/L (39-117); Anion Gap 14 (12-20); Aspartate Amino Transferase 28 U/L (5-37); Bilirubin Direct 0.8 mg/dL (0.0-0.5); Bilirubin Total 1.5 mg/dL (0.0-1.0); Blood Urea Nitrogen 30 mg/dL (9-16); Carbon Dioxide 24 mmol/L (22-29); Chloride 103 mmol/L (96-108); Creatinine Clr Calc Pharmacy 50.7; Estimated Glomerular Filt Rate 52; Glucose Fasting 104 mg/dL (60-99); Magnesium 2.1 mg/dL (1.6-2.6); Potassium 3.6 mmol/L (3.3-5.1); Sodium 137 mmol/L (135-145); Total Protein 6.7 g/dL (6.5-8.0)
[2022-02-16] MEDS: Spironolactone 25 MG TABLET PO (08:25)
[2022-02-16] MEDS: Apixaban 5 MG TABLET PO ×2 (08:25→20:34)
[2022-02-16] MEDS: Digoxin 0.125 MG TABLET PO (08:25)
[2022-02-16] MEDS: Metoprolol Succinate ER 25 MG TAB.ER.24H PO ×2 (08:25→20:34)
[2022-02-16] MEDS: Furosemide 40 MG/4 ML VIAL IVPUSH ×2 (08:25→17:17)
[2022-02-16] MEDS: 0.9 % Sodium Chloride Flush 3 ML SYRINGE IVFLUSH ×2 (08:26→17:17)
--- NOTE | 2022-02-16 09:19 | HO.PM.IMPN ---
Subjective Subjective Date of Service: 02/16/22 Interval History: cc: sob, le edema interval history: improving le edema Cardiovascular Cardiovascular: Reports no additional cardiovascular complaints Respiratory Respiratory: Reports no additional respiratory complaints Physical Exam Vital Signs: Vital Signs: Last Vital Signs Temp 98.1 F 02/16/22 07:28 Pulse 100 02/16/22 07:28 Resp 18 02/16/22 07:28 BP 101/65 02/16/22 07:28 Pulse Ox 99 02/16/22 07:28 BMI result Body Mass Index 28.3 General: AO X 3, no acute distress Resp:? minimal basilar crackles, no accessory muscles used CVS: S1,S2,irregular rapid, 1-2+ edema GI: soft, non tender, non distended, hernia Neuro:? motor grossly intact, alert Psych: appropriate affect, appropriate insight? Objective Data Active Medications Acetaminophen (Acetaminophen 325 Mg Tablet) 650 mg PO Q6H PRN PRN Reason: Pain, Mild (Pain Scale 1-3) Last Admin: 02/15/22 15:49 Dose: 650 mg Documented by: JANINA Apixaban (Apixaban 5 Mg Tablet) 5 mg PO BID [facility] Last Admin: 02/16/22 08:25 Dose: 5 mg Documented by: JAMILAH Atorvastatin Calcium (Atorvastatin Calcium 40 Mg Tablet) 40 mg PO BEDTIME [facility] Last Admin: 02/15/22 20:49 Dose: 40 mg Documented by: DRU Digoxin (Digoxin 0.125 Mg Tablet) 0.125 mg PO Q48H [facility] Last Admin: 02/16/22 08:25 Dose: 0.125 mg Documented by: JAMILAH Fluticasone/Vilanterol (Fluticasone/Vilanterol 200/25 Blst.W.Dev) 1 puff INHALE RDAILY [facility] Last Admin: 02/16/22 07:37 Dose: Not Given Documented by: JUANJO Non-Admin Reason: Med Not Available Furosemide (Furosemide 40 Mg/4 Ml Vial) 40 mg IVPUSH BID@0900,1800 [facility]; Protocol Last Admin: 02/16/22 08:25 Dose: 40 mg Documented by: JAMILAH Latanoprost (Latanoprost 0.005 % Ophth Elena 2.5 Ml Drops) 1 drop EYE-BOTH BEDTIME [facility] Last Admin: 02/15/22 20:50 Dose: 1 drop Documented by: DRU Melatonin (Melatonin 3 Mg Tablet) 6 mg PO BEDTIME PRN PRN Reason: Insomnia Metoprolol Succinate (Metoprolol Succinate Er 25 Mg Tab.Er.24h) 25 mg PO BID [facility]; Protocol Last Admin: 02/16/22 08:25 Dose: 25 mg Documented by: JAMILAH Montelukast Sodium (Montelukast Sodium 10 Mg Tablet) 10 mg PO BEDTIME [facility] Last Admin: 02/15/22 20:49 Dose: 10 mg Documented by: DRU Patient Own Medication ( Proventil Hfa) 2 each INHALE Q4H PRN PRN Reason: sob Pharmacy Consult (Consult Rx Perform Med Rec) 1 each MISCELLANE ONCE PRN PRN Reason: Consult order Pharmacy Consult (Consult Rx Perform Med Rec) 1 each MISCELLANE ONCE PRN PRN Reason: Consult order Senna (Sennosides 8.6 Mg Tablet) 17.2 mg PO BEDTIME PRN PRN Reason: Constipation Sodium Chloride (0.9 % Sodium Chloride Flush 3 Ml Syringe) 3 ml IVFLUSH QSHIFT [facility] Last Admin: 02/16/22 08:26 Dose: 3 ml Documented by: JAMILAH Spironolactone (Spironolactone 25 Mg Tablet) 25 mg PO DAILY [facility]; Protocol Last Admin: 02/16/22 08:25 Dose: 25 mg Documented by: JAMILAH Labs CBC & Chem 7: 02/16/22 05:19 02/16/22 05:19 Labs: Laboratory Results - last 24 hr 02/16/22 02/16/22 05:19 05:19 MCV 94.2 MCH 30.3 MCHC 32.2 RDW 15.4 Plt Count 74 L MPV 11.0 Absolute Nucleated RBC 0.000 Nucleated RBC % (auto) 0.0 Anion Gap 14 Estim Creat Clear Calc 50.7 Estimated GFR 52 Fasting Glucose 104 H Calcium 9.0 Magnesium 2.1 Total Bilirubin 1.5 H Direct Bilirubin 0.8 H AST 28 ALT 21 Alkaline Phosphatase 145 H D Total Protein 6.7 Albumin 3.7 Assessment and Plan (1) CHF (congestive heart failure): Status: Acute Plan 72M sent in by cardiology for chf and afib with rvr acute on chronic systolic chf continue lasix to 40mg iv bid cardio following monitor bmp check echo continue toprol, aldactone chronic afib with rvr on toprol, dig, minimaly symptomatic monitor on tele eliquis CKD III stable inguinal hernia with pain surgery eval COPD prn bronchodilators inhaled LABA/ICS liver cirrhosis complicated by thrombocytopenia appears compensated, ?NAFLD vs cardiogenic dvt prophylaxis - on eliquis full code reason for continued hospitalization: needs better heart rate control, iv diuresis Quality Stroke Does the patient have a stroke diagnosis?: No VTE Prior VTE?: No VTE Risk Level:: Medical - moderate - high VTE Device Contraindication: Treatment Not Indicated VTE Drug Contraindication: N/A - Med Ordered
--- NOTE | 2022-02-16 14:00 | CA_ITS ---
Transthoracic Echocardiogram Patient (Last, First, Middle): Sadi Good, Gender: Male Date of : 1950 Age: 72 Procedure Date: 02/16/2022 Procedure Type: Transthoracic Echocardiogram [place] [facility] [place]: 170.18 cm Weight: 83.46 kg BSA: 1.95 m2 Heart Rate: bpm BP: 101 / 65 mmHg Linen Room Supervisor: Referring MD: Dante Mejia MD Symptoms: chf Study Quality: Fair ECG Rhythm: Sinus Conclusions: - Normal left ventricular cavity size. There is mildly increased left ventricular wall thickness. The left ventricular systolic function is severely decreased. The visually estimated ejection fraction is between 10-15%. - Mildly increased right ventricular cavity size. There is moderately decreased right ventricular systolic function. - The left atrium is severely dilated. - A bioprosthetic aortic valve is present. The prosthetic aortic valve appears to be functioning normally. - A bioprosthetic mitral valve is present. The prosthetic mitral valve appears to be functioning normally. - There is moderate to severe tricuspid valve regurgitation. Moderately elevated right atrial pressure. Mild to moderate pulmonary hypertension is present. Findings Left Ventricle Normal left ventricular cavity size. There is mildly increased left ventricular wall thickness. The left ventricular systolic function is severely decreased. The visually estimated ejection fraction is between 10 15%. There is severe global hypokinesis. Diastolic function is indeterminate on the basis of available data. Right Ventricle Mildly increased right ventricular cavity size. There is moderately decreased right ventricular systolic function. Atria The left atrium is severely dilated. Aortic Valve A bioprosthetic aortic valve is present. The prosthetic aortic valve appears to be functioning normally. Mitral Valve A bioprosthetic mitral valve is present. The prosthetic mitral valve appears to be functioning normally. There is trace mitral valve regurgitation. There is no mitral valve stenosis. Pulmonic Valve The pulmonic valve is normal. There is trace pulmonic valve regurgitation. Tricuspid Valve There is moderate to severe tricuspid valve regurgitation. Moderately elevated right atrial pressure. Mild to moderate pulmonary hypertension is present. There is apical tethering of TV leaflets. Great Vessels All visible segments of the aorta are normal in size. Venous The inferior vena cava is normal in size and collapses less than 50% with inspiration. Pericardium/Pleural There is no evidence of pericardial effusion. Prior Study Comparison No prior study available for comparison. Measurements 2D Linear Measurements IVSd: 1.28 0.6-0.9/0.6-1.0 cm LVIDd: 5.56 3.9-5.3/4.2-5.9 cm LVIDd Index: 2.85 2.4-3.2/2.2-3.1 cm/m2 LVIDs: 5.15 2.0-3.6 cm LVPWd: 1.31 0.7-1.1 cm Ao Root: 2.60 2.1-3.5 cm LA Diam: 6.20 2.7-3.8/3.0-4.0 cm LAIDs Index: 3.18 1.5-2.3 cm/m2 LV Mass: 384.24 67-162/88-224 g LV Mass Index: 197.05 43-95/49-115 g/m2 LVOT Diam: 2.00 3.0+(-)1.3 cm 2D Systolic Function EF 4C: 15.00 >55% EF 2C: 20.80 >55% EF BiP: 16.00 >55% Mitral Valve MV VTI: 0.37 MV Pk Cristo: 1.84 MV Mn Cristo: 0.94 MV Pk Grad: 14.00 MV Mn Grad: 5.00 MV Pk E: 1.56 MV Decel Time: 165.00 E'Lateral: 6.09 E'Medial: 3.59 E/E' Med: 43.50 E/E' Lat: 25.60 PHT: 48.00 MVA PHT: 4.58 MVA Continuity: 1.20 Decel Telfair: 9.45 Aortic Valve AoV Pk Cristo: 2.42 AoV Mn Cristo: 1.58 AoV VTI: 0.41 AoV Pk Grad: 23.00 Aov Mn Grad: 12.00 ROBERT Cont.VTI: 1.10 LVOT LVOT Pk Cristo: 0.75 LVOT Mn Cristo: 0.49 LVOT VTI: 0.14 LVOT Pk Grad: 2.00 LVOT Mn Grad: 1.00 LVOT Diam: 2.00 LVOT Area: 3.14 Diastolic Function MV Pk E: 1.56 E'Medial: 3.59 E/E' Med: 43.50 E' Laterial: 6.09 E/E' Lat: 25.60 Right Ventricle TAPSE (mm): 10.00 TVS' Cristo: 5.00 Tricuspid Valve TV Pk Cristo: 1.34 TV Mn Cristo: 0.74 TV Pk Grad: 7.00 TV Mn Grad: 3.00 TR Pk Cristo: 3.07 TR Pk Grad: 38.00 RA Press: 8.00 RVSP: 46.00 Great Vessels Aorta Ao Root-2D: 2.60 2.0-3.7 cm Ao Asc: 3.30 2.1-3.4 cm Pulmonary Valve PV Pk Cristo: 1.02 Peak PV Grad: 4.00 Updated in Other Vendor System with Status of Final Richmond Jameson MD electronically signed on 02/16/2022 7:53:29 PM with status of Final
--- NOTE | 2022-02-16 16:39 | PM.PNCARD ---
Subjective Subjective Date of Service: 02/16/22 Principal diagnosis: Congestive heart failure Interval history: Cardiology follow-up for Congestive heart failure. Seen at 12:45. Today he reports that he is frustrated over his medical condition. He describes issues with recurrent congestive heart failure since his medications were adjusted within the last year. He has been receiving the IV diuretic here and feels that his leg edema has improved some. He denies having shortness of breath, PND, orthopnea. No chest pains, palpitations, dizziness. He describes having a large hernia that goes into his scrotum and and goals his penis making it more challenging for him to urinate. He has to sit down and let it come out. His I&Os have not been accurately measured since admit. Review of Systems Review of Systems As above Yes all other systems are reviewed and are negative Physical Exam Vital Signs: Last Vital Signs Temp 98.3 F 02/16/22 16:00 Pulse 99 02/16/22 16:00 Resp 18 02/16/22 16:00 BP 114/62 02/16/22 16:00 Pulse Ox 100 02/16/22 16:00 BMI result Body Mass Index 28.3 Const General: cooperative, no acute distress, alert and awake Orientation/consciousness: patient oriented x3 Neck Neck: Yes JVD Resp Effort & Inspection: normal respiratory effort and able to speak in complete sentences Auscultation: clear to auscultation bilaterally, no crackles, no rales, no rhonchi and no wheezes Cardio Jugular venous distension: JVD present Rate: regular rate Heart sounds: S1 normal heart sound present and S2 normal heart sound present GI Other: Distended rounded Neuro General: patient oriented x3 Extrem General: Yes normal to inspection Objective Labs and Meds Result diagrams: 02/16/22 05:19 02/16/22 05:19 Lab results: Laboratory Results - last 24 hr 02/16/22 02/16/22 05:19 05:19 WBC 4.1 L RBC 3.43 L Hgb 10.4 L Hct 32.3 L MCV 94.2 MCH 30.3 MCHC 32.2 RDW 15.4 Plt Count 74 L MPV 11.0 Absolute Nucleated RBC 0.000 Nucleated RBC % (auto) 0.0 Sodium 137 Potassium 3.6 Chloride 103 Carbon Dioxide 24 Anion Gap 14 BUN 30 H Creatinine 1.36 Estim Creat Clear Calc 50.7 Estimated GFR 52 Fasting Glucose 104 H Calcium 9.0 Magnesium 2.1 Total Bilirubin 1.5 H Direct Bilirubin 0.8 H AST 28 ALT 21 Alkaline Phosphatase 145 H D Total Protein 6.7 Albumin 3.7 Progress Note: A&P Assessment and plan (1) CHF (congestive heart failure): Status: Acute Assessment and Plan: Admit with increased swelling and orthopnea. Evidence of fluid overload on examination. History of cardiomyopathy with reported EF 45%. He is normally on Bumex 2 mg b.i.d.. He is being diuresed with Lasix 40 mg IV b.i.d.. His I&Os are not accurately maintained due to difficulties with urination. He does report some improvement in his leg edema and breathing. Creatinine 1.36. Oxygen saturation 99% on room air. On examination he does have +2 pitting lower leg edema to the level of the knees and JVD. Echocardiogram done, result is pending. He needs further diuresis with IV diuretics. I&O monitoring as able. Close monitoring of electrolytes and kidney function with electrolyte replacement as warranted. Avoid hypokalemia is he is on digoxin. We will follow. His primary professor of biological sciences is Dr. Canales. (2) Afib: Status: Acute Assessment and Plan: History of chronic atrial fibrillation. Rate currently controlled averaging 80 to low 100s. He is on metoprolol and digoxin for heart rate control. In setting of heart failure do not further titrate metoprolol. Will check digoxin level in the a.m. he is on Eliquis for anticoagulation. No reports of bleeding. Hemoglobin stable at 10.4.. Ongoing telemetry monitoring (3) Acute exacerbation of CHF (congestive heart failure): Status: Acute Assessment and Plan: Acute on chronic systolic Congestive heart failure. (4) Cardiomyopathy: Status: Acute Assessment and Plan: Echo report pending. Time Spent With Patient Time: Total time spent is greater than 50% in coordination of care (as documented) at patient's floor/unit and/or counseling patient: 24 Progress Note: Quality Stroke Does the patient have a stroke diagnosis?: No Procedures Date of Service Date of Service: 02/16/22
[2022-02-16] MEDS: Atorvastatin Calcium 40 MG TABLET PO (20:34)
[2022-02-16] MEDS: Montelukast Sodium 10 MG TABLET PO (20:34)
[2022-02-16] MEDS: Latanoprost 0.005 % Ophth Sol 2.5 ML DROPS 1 DROP EYE-BOTH (20:35)
[2022-02-17] VITALS (11 sets, daily range): BP systolic 90–122; BP diastolic 54–79; PULSE 90–104; RESP 17–18; TEMP 36.2–37.1; O2SAT 93–100; BMI 27.3
[2022-02-17] MEDS: 0.9 % Sodium Chloride Flush 3 ML SYRINGE IVFLUSH ×4 (00:33→23:56)
[2022-02-17 06:52] LABS: Hematocrit 33.3 % (42.0-52.0); Hemoglobin 10.6 g/dl (14.0-18.0); Mean Corpuscular HGB Conc 31.8 g/dl (31.0-36.0); Mean Corpuscular Hemoglobin 30.3 pg (27.0-33.0); Mean Corpuscular Volume 95.1 fL (80.0-98.0); Mean Platelet Volume 10.7 fL (9.4-12.4); Red Cell Distribution Width 15.4 % (11.0-16.0); White Blood Count 4.7 X10*3/uL (4.8-10.8)
[2022-02-17 06:56] LABS: Platelet Count 86 X10*3/uL (160-400)
[2022-02-17 07:05] LABS: Anion Gap 15 (12-20); Blood Urea Nitrogen 28 mg/dL (9-16); Calcium 9.1 mg/dL (8.4-10.2); Carbon Dioxide 25 mmol/L (22-29); Chloride 102 mmol/L (96-108); Creatinine Clr Calc Pharmacy 51.1; Estimated Glomerular Filt Rate 52; Glucose Fasting 102 mg/dL (60-99); Potassium 3.6 mmol/L (3.3-5.1); Sodium 138 mmol/L (135-145)
[2022-02-17 07:58] LABS: Digoxin < 0.3 ng/mL (0.8-2.0)
[2022-02-17 08:24] LABS: B Type Natriuretic Peptide 1131 pg/mL (<100)
[2022-02-17] MEDS: Metoprolol Succinate ER 25 MG TAB.ER.24H PO ×2 (09:26→20:52)
[2022-02-17] MEDS: Apixaban 5 MG TABLET PO ×2 (09:27→20:51)
[2022-02-17] MEDS: Spironolactone 25 MG TABLET PO (09:27)
[2022-02-17] MEDS: Furosemide 40 MG/4 ML VIAL IVPUSH (09:27)
--- NOTE | 2022-02-17 12:43 | PM.DS ---
DS: Providers Provider Date of admission: 02/14/22 22:04 Primary care physician: MAXIMINO Ryan Consults: 02/14/22 22:03 Consult to Cardiology Routine Consulting Provider: Binu Lubin Reason for consultation: CHF 02/14/22 22:26 Consult to General Surgery Routine Consulting Provider: Yohannes Weems Reason for consultation: Inguinal hernia DS: Diagnosis Discharge Diagnosis (1) CHF (congestive heart failure): Status: Acute (2) Afib: Status: Acute (3) Acute exacerbation of CHF (congestive heart failure): Status: Acute (4) Cardiomyopathy: Status: Acute DS: Summary Hospital Course Hospital Course: Admission note HPI 72-year-old male with a past medical history of hypertension, CKD, CHF, asthma, history of aortic valve repair/CABG in 2014, 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 Most of the history provided with the patient patient's the bedside.? Reportedly patient been having shortness of breath-mentions it has been chronic; also report he has been having increased leg swelling; Follows with Dr. Li ace his primary director of category management who suggested him to go to the ER for IV diuresis.? Denies any fevers and chills.? Reports he has been having cough-reports is chronic no new change.? Also mentions he has inguinal hernia which has been gradually getting worse, has seen his primary surgeon who suggested currently it is reducible and will plan for surgery once cleared by Cardiology.? Per ER team patient noted to have peripheral edema; vitals are stable blood pressure on the soft side; CBC within the normal limits; chemistry showed creatinine of 1.5 on; chest x-ray showed chronic appearing reticular markings without any superimposed edema or infectious etiology.? Initial troponin was 46; EKG showed no acute changes Discussed with Dr. Lubin; who suggested admission to the hospital for further management. Hospital course The patient was admitted for treatment of acute on chronic systolic CHF as he was evaluated by Cardiology team and treated with IV Lasix 40 mg twice daily with good response over the course of hospital stay as his Time Spent with Patient Time attestation: Total time spent providing and/or coordinating discharge services: Physical Exam Vital Signs: Vital Signs: Last Vital Signs Temp 97.2 F 02/17/22 12:00 Pulse 104 H 02/17/22 12:00 Resp 18 02/17/22 12:00 BP 122/79 02/17/22 12:00 Pulse Ox 100 02/17/22 12:00 BMI result Body Mass Index 28.3 DS: Data Data Completed and Pending Labs on day of discharge: Laboratory Results - last 24 hr 02/17/22 02/17/22 02/17/22 06:18 06:18 06:18 WBC 4.7 L RBC 3.50 L Hgb 10.6 L Hct 33.3 L MCV 95.1 MCH 30.3 MCHC 31.8 RDW 15.4 Plt Count 86 L MPV 10.7 Absolute Nucleated RBC 0.000 Nucleated RBC % (auto) 0.0 Sodium 138 Potassium 3.6 Chloride 102 Carbon Dioxide 25 Anion Gap 15 BUN 28 H Creatinine 1.35 Estim Creat Clear Calc 51.1 Estimated GFR 52 Fasting Glucose 102 H Calcium 9.1 B-Natriuretic Peptide Digoxin < 0.3 L 02/17/22 06:18 WBC RBC Hgb Hct MCV MCH MCHC RDW Plt Count MPV Absolute Nucleated RBC Nucleated RBC % (auto) Sodium Potassium Chloride Carbon Dioxide Anion Gap BUN Creatinine Estim Creat Clear Calc Estimated GFR Fasting Glucose Calcium B-Natriuretic Peptide 1131 H Digoxin Discharge Plan Discharge Patient Disposition: Home Health Service Discharge Diagnosis: heart failure exacerbation Referrals: Gracy Henry FNP [Primary Care Provider] - 1 Week Discharge Medications: Continued atorvastatin 40 mg tablet 1 tab PO BEDTIME 0RF spironolactone 25 mg tablet 1 tab PO DAILY 0RF albuterol sulfate [Proventil HFA] 90 mcg/actuation HFA aerosol inhaler 2 puff inhalation DAILY 0RF Eliquis 5 mg tablet 1 tab PO BID 0RF hawthorn green 450 mg Capsule 450 mg PO BEDTIME 0RF ascorbic acid (vitamin C) [Vitamin C] 500 mg Tablet 1,000 mg PO DAILY@12 0RF epinephrine 0.3 mg/0.3 mL Auto-Injector 0.3 mg IM Q10M PRN (Reason: Anaphylaxis) 0RF budesonide-formoterol [Symbicort] 160-4.5 mcg/actuation Hfa Aerosol Inhaler 2 puff INHALATION BID 0RF Probiotic 3 billion cell Capsule 3,000 mmu cells PO DAILY@12 0RF Fish Oil 120 mg-180 mg- 60 mg-1,200 mg Capsule,Delayed Release(Dr/Ec) 1 cap PO BEDTIME 0RF latanoprost 0.005 % Drops 1 drp ophthalmic (eye) BEDTIME 0RF multivitamin Tablet 1 tab PO DAILY 0RF garlic 1,000 mg Capsule 1,000 mg PO DAILY@12 0RF montelukast 10 mg tablet 1 tab PO BEDTIME 0RF digoxin 125 mcg (0.125 mg) tablet 1 tab PO Q OTHER DAY 0RF metoprolol succinate 25 mg tablet extended release 24 hr 1 tab PO BID 0RF bumetanide 1 mg tablet 2 tab PO DAILY 0RF Discharge Orders: Discharge Order (Routine); Ordered 02/17/22 Ordered By: Dimas Medina Diet: advance to usual diet and low salt diet Activity on Discharge: As tolerated Stand Alone Forms: Patient Portal Discharge page Care Plan Goals: Read below Health Concerns: Read below Plan of Treatment: Read below Assessment: you were admitted to the hospital for evaluation of difficulty breathing and edema. Found to be in heart failure exacerbation treated with IV water pills with good response over the course of hospital stay as you were evaluated by Cardiology team. You were evaluated by Dr. Weems from surgery for abdominal wall hernia who recommended outpatient follow-up if you want surgery to be done here. Continue your home dose Bumex as prescribed daily Monitor your weight and report any changes to your director of category management Low-salt diet, decreased Fluid intake to follow-up with surgery and Cardiology as outpatient to start planning for your hernia surgery.
[2022-02-17] MEDS: Digoxin 0.125 MG TABLET PO (14:12)
--- NOTE | 2022-02-17 14:18 | HO.PM.IMPN ---
Subjective Subjective Date of Service: 02/17/22 Interval History: cc: improved shortness of breath and lower extremities edema concerned about his abdominal wall hernia interval history: improving le edema Review of Systems No fever, chills or weakness No chest pain, palpitation No shortness of breath or coughing , edema improving No abdominal pain, nausea or vomiting No urinary symptoms bilateral lower extremity stasis dermatitis Cardiovascular Cardiovascular: Reports no additional cardiovascular complaints Respiratory Respiratory: Reports no additional respiratory complaints Physical Exam Vital Signs: Vital Signs: Last Vital Signs Temp 97.2 F 02/17/22 12:00 Pulse 104 H 02/17/22 12:00 Resp 18 02/17/22 12:00 BP 122/79 02/17/22 12:00 Pulse Ox 100 02/17/22 12:00 BMI result Body Mass Index 28.3 Const: Other: Constitutional : Alert, oriented, not in distress Neck : Normal inspection, Supple Cardiovascular : RRR, no JVP, +1 bilateral lower extremity edema Respiratory : fair bilateral air entry, no crackles, wheezes or rhonchi Gastrointestinal: soft, lax, Normal bowel sounds, Non tender Skin : Warm, Dry, bilateral stasis dermatitis picture. Neurological : Alert & oriented x3, No focal deficit , CN 2-12 within normal Objective Data Active Medications Acetaminophen (Acetaminophen 325 Mg Tablet) 650 mg PO Q6H PRN PRN Reason: Pain, Mild (Pain Scale 1-3) Last Admin: 02/15/22 15:49 Dose: 650 mg Documented by: JANINA Apixaban (Apixaban 5 Mg Tablet) 5 mg PO BID [facility] Last Admin: 02/17/22 09:27 Dose: 5 mg Documented by: JAMILAH Atorvastatin Calcium (Atorvastatin Calcium 40 Mg Tablet) 40 mg PO BEDTIME [facility] Last Admin: 02/16/22 20:34 Dose: 40 mg Documented by: CAMILA Digoxin (Digoxin 0.125 Mg Tablet) 0.125 mg PO DAILY@0730 [facility] Last Admin: 02/17/22 14:12 Dose: 0.125 mg Documented by: JAMILAH Furosemide (Furosemide 40 Mg/4 Ml Vial) 40 mg IVPUSH BID@0900,1800 [facility]; Protocol Last Admin: 02/17/22 09:27 Dose: 40 mg Documented by: JAMILAH Latanoprost (Latanoprost 0.005 % Ophth Elena 2.5 Ml Drops) 1 drop EYE-BOTH BEDTIME [facility] Last Admin: 02/16/22 20:35 Dose: 1 drop Documented by: CAMILA Melatonin (Melatonin 3 Mg Tablet) 6 mg PO BEDTIME PRN PRN Reason: Insomnia Metoprolol Succinate (Metoprolol Succinate Er 25 Mg Tab.Er.24h) 25 mg PO BID [facility]; Protocol Last Admin: 02/17/22 09:26 Dose: 25 mg Documented by: JAMILAH Montelukast Sodium (Montelukast Sodium 10 Mg Tablet) 10 mg PO BEDTIME [facility] Last Admin: 02/16/22 20:34 Dose: 10 mg Documented by: CAMILA Patient Own Medication ( Symbicort 160/4.5mcg ) 2 each INHALE RBID [facility] Last Admin: 02/17/22 07:23 Dose: Not Given Documented by: JUANJO Non-Admin Reason: pt took own med Patient Own Medication ( Proventil Hfa) 2 each INHALE Q4H PRN PRN Reason: sob Pharmacy Consult (Consult Rx Perform Med Rec) 1 each MISCELLANE ONCE PRN PRN Reason: Consult order Pharmacy Consult (Consult Rx Perform Med Rec) 1 each MISCELLANE ONCE PRN PRN Reason: Consult order Senna (Sennosides 8.6 Mg Tablet) 17.2 mg PO BEDTIME PRN PRN Reason: Constipation Sodium Chloride (0.9 % Sodium Chloride Flush 3 Ml Syringe) 3 ml IVFLUSH QSHIFT [facility] Last Admin: 02/17/22 09:27 Dose: 3 ml Documented by: JAMILAH Spironolactone (Spironolactone 25 Mg Tablet) 25 mg PO DAILY [facility]; Protocol Last Admin: 02/17/22 09:27 Dose: 25 mg Documented by: JAMILAH Labs CBC & Chem 7: 02/17/22 06:18 02/17/22 06:18 Labs: Laboratory Results - last 24 hr 02/17/22 02/17/22 02/17/22 06:18 06:18 06:18 MCV 95.1 MCH 30.3 MCHC 31.8 RDW 15.4 Plt Count 86 L MPV 10.7 Absolute Nucleated RBC 0.000 Nucleated RBC % (auto) 0.0 Anion Gap 15 Estim Creat Clear Calc 51.1 Estimated GFR 52 Fasting Glucose 102 H Calcium 9.1 B-Natriuretic Peptide Digoxin < 0.3 L 02/17/22 06:18 MCV MCH MCHC RDW Plt Count MPV Absolute Nucleated RBC Nucleated RBC % (auto) Anion Gap Estim Creat Clear Calc Estimated GFR Fasting Glucose Calcium B-Natriuretic Peptide 1131 H Digoxin Assessment and Plan (1) Cardiomyopathy: Status: Acute (2) Acute exacerbation of CHF (congestive heart failure): Status: Acute (3) Afib: Status: Acute Plan 72M sent in by cardiology for chf and afib with rvr acute on chronic systolic chf Improving continue lasix to 40mg iv bid cardio following monitor bmp Echo showed decreased EF to 10-15% continue toprol, aldactone chronic afib with rvr on toprol, dig, minimaly symptomatic low digoxin level, Cardiology recommended continue Q 2 days does monitor on tele eliquis CKD III stable inguinal hernia with pain surgery eval COPD prn bronchodilators inhaled LABA/ICS liver cirrhosis complicated by thrombocytopenia appears compensated, ?NAFLD vs cardiogenic dvt prophylaxis - on eliquis full code reason for continued hospitalization: needs better heart rate controlAnd fluid management with iv diuresis Quality Stroke Does the patient have a stroke diagnosis?: No VTE Prior VTE?: No VTE Risk Level:: Medical - moderate - high VTE Device Contraindication: Treatment Not Indicated VTE Drug Contraindication: N/A - Med Ordered
--- NOTE | 2022-02-17 16:44 | PC.NURSE ---
PT AWARE OF RECENT CONSULT WITH GENERAL SURGEON FOR INGUINAL HERNIA, WHICH WOULD BE MANAGED OUT PATIENT. DR DUEÑAS AWARE OF PT REQUEST FOR UROLOGY CONSULT TO MANAGE DIFFICULTY VOIDING DUE TO ENLARGED SCROTUM
[2022-02-17] MEDS: Montelukast Sodium 10 MG TABLET PO (20:51)
[2022-02-17] MEDS: Furosemide 40 MG/4 ML VIAL 60 MG IVPUSH (20:52)
[2022-02-17] MEDS: Atorvastatin Calcium 40 MG TABLET PO (20:52)
[2022-02-17] MEDS: Latanoprost 0.005 % Ophth Sol 2.5 ML DROPS 1 DROP EYE-BOTH (20:55)
[2022-02-18] VITALS (9 sets, daily range): BP systolic 104–140; BP diastolic 48–87; PULSE 73–117; RESP 17–18; TEMP 36.5–37; O2SAT 95–100; BMI 27.5
[2022-02-18 06:21] LABS: Anion Gap 14 (12-20); Blood Urea Nitrogen 28 mg/dL (9-16); Carbon Dioxide 26 mmol/L (22-29); Chloride 102 mmol/L (96-108); Estimated Glomerular Filt Rate 53; Glucose Random 101 mg/dL (60-115); Potassium 3.5 mmol/L (3.3-5.1); Sodium 138 mmol/L (135-145)
[2022-02-18 06:32] LABS: B Type Natriuretic Peptide 1510 pg/mL (<100)
[2022-02-18] MEDS: Furosemide 40 MG/4 ML VIAL 60 MG IVPUSH (08:41)
[2022-02-18] MEDS: Digoxin 0.125 MG TABLET PO (08:42)
[2022-02-18] MEDS: 0.9 % Sodium Chloride Flush 3 ML SYRINGE IVFLUSH (08:42)
[2022-02-18] MEDS: Apixaban 5 MG TABLET PO ×2 (08:42→20:57)
--- NOTE | 2022-02-18 08:42 | MHC.CM.PN ---
CASE MANAGEMENT MET WITH PATIENT PER HIS REQUEST. CASE MANAGEMENT UPDATED WITH INFORMATION THAT PATIENT HAS COMPLAINTS RELATED TO HIS CARE, COMMUNICATION, AND WANTING TO LEAVE. IT WAS ALSO DISCLOSED THAT PATIENT MADE VERBAL THREATS OF VIOLENCE TO [employer] ABOUT HOSPITALIST. PATIENT ADMITS TO THIS BUT DENIES ANY DESIRE TO DO SO. HE WAS INFORMED THAT THREATS ARE TAKEN SERIOUSLY THIS CAR USHER GAVE PATIENT COMPLAINT HOTLINE PHONE NUMBER PATIENT VERBALIZES FRUSTRATION THAT HIS DAUGHTER IS NOT GIVEN INFORMATION THAT SHE IS ASKING FOR IT WAS EXPLAINED THAT BECAUSE PATIENT IS ALERT AND AND CAN SPEAK FOR HIMSELF, PERHAPS PATIENT CAN GIVE ANY MISSING INFORMATION TO DAUGHTER, THIS CAR USHER IS AWARE THAT DAUGHTER (SABINA) HAS SPOKEN WITH HOSPITALIST WHEN ASKED IF THERE ARE ANY FURTHER NEEDS, PATIENT STATES THAT HE WANTS TO LEAVE TODAY. HE IS AWARE THAT CASE MANAGEMENT CAN ASSIST WITH TRANSPORT IF HE DOES NOT HAVE ANY
[2022-02-18] MEDS: Metoprolol Succinate ER 25 MG TAB.ER.24H PO (08:43)
[2022-02-18] MEDS: Spironolactone 25 MG TABLET PO (08:43)
--- NOTE | 2022-02-18 12:06 | PM.PNCARD ---
Subjective Subjective Date of Service: 02/18/22 <DEBRA Saxena - Last Filed: 02/18/22 12:25> 02/18/22 <Houston Larry MD - Last Filed: 02/18/22 16:06> Principal diagnosis: Congestive heart failure, afib RVR <DEBRA Saxena - Last Filed: 02/18/22 12:25> Interval history: cardiology follow up for CHF, afib. Seen at 1000. Today he reports that he is breathing comfortably. He states he did not sleep well due to the environment. Head of the bed elevated during sleep. No cough. No chest pain at rest or with activity. He denies shortness of breath when walking or in the room. Denies heart palpitations, dizziness, presyncope. He states leg edema is improved since its admission however still present. His primary complaint is his extensive hernia. He has not been collecting his urine as he says it just comes out and he has to sit on the toilet it to go. He is frustrated over his medical condition. <DEBRA Saxena - Last Filed: 02/18/22 12:25> Review of Systems Review of Systems As above <DEBRA Saxena Last Filed: 02/18/22 12:25> Yes all other systems are reviewed and are negative <DEBRA Saxena Last Filed: 02/18/22 12:25> Physical Exam Vital Signs: Last Vital Signs Temp 98.3 F 02/18/22 11:35 Pulse 95 02/18/22 11:35 Resp 17 02/18/22 11:35 BP 104/69 02/18/22 11:35 Pulse Ox 99 02/18/22 11:35 BMI result Body Mass Index 27.5 <DEBRA Saxena Last Filed: 02/18/22 12:25> Const General: cooperative, no acute distress, alert and awake <DEBRA Saxena Last Filed: 02/18/22 12:25> Orientation/consciousness: patient oriented x3 <DEBRA Saxena Last Filed: 02/18/22 12:25> HEENT Other: JVD <DEBRA Saxena Last Filed: 02/18/22 12:25> Resp Effort & Inspection: normal respiratory effort and able to speak in complete sentences <Irene SimentalANA-C - Last Filed: 02/18/22 12:25> Auscultation: clear to auscultation bilaterally, no rales, no rhonchi and no wheezes <Irene SimentalANA-C - Last Filed: 02/18/22 12:25> Cardio Jugular venous distension: JVD present <Irene SimentalANA-C - Last Filed: 02/18/22 12:25> Rate: regular rate <Irene SimentalANA-C - Last Filed: 02/18/22 12:25> Rhythm: abnormal rhythm irregularly irregular <Irene SimentalANA-C - Last Filed: 02/18/22 12:25> Heart sounds: S1 normal heart sound present and S2 normal heart sound present <Irene Canchola ANA Simental-C - Last Filed: 02/18/22 12:25> GI Other: Distended, nontender <Irene SimentalANA-C - Last Filed: 02/18/22 12:25> Neuro General: patient oriented x3 <Irene Canchola ANA Simental-C - Last Filed: 02/18/22 12:25> Extrem Other: Bilateral type pitting lower leg edema, right greater than left <Irene SimentalANA-C - Last Filed: 02/18/22 12:25> Objective Labs and Meds Result diagrams: : 02/17/22 06:18 02/18/22 05:39 <Irene Canchola KamilleANA-C - Last Filed: 02/18/22 12:25> Lab results: Laboratory Results - last 24 hr 02/18/22 02/18/22 05:39 05:39 Sodium 138 Potassium 3.5 Chloride 102 Carbon Dioxide 26 Anion Gap 14 BUN 28 H Creatinine 1.33 Estim Creat Clear Calc 51.0 Estimated GFR 53 Random Glucose 101 Calcium 9.0 B-Natriuretic Peptide 1510 H <Irene Canchola ANA Simental-C - Last Filed: 02/18/22 12:25> Progress Note: A&P Assessment and plan (1) CHF (congestive heart failure): Status: Acute <DEBRA Saxena - Last Filed: 02/18/22 12:25> Assessment and Plan: Admit with increased leg swelling and orthopnea at the direction of his primary industrial hygiene manager Dr. Briscoe. Evidence of fluid overload on examination.? History of cardiomyopathy with prior EF 45%. Echo 01/16/22 showed reduction in EF to 22% for unclear reason. It could be related to his Afib with uncontrolled rates. BNP initially elevated at 1618.? He was normally on Bumex 2 mg daily prior to admit.?This admit he has been receving Lasix 40 mg IV b.i.d, which was increased to 60mg bid yesterday. BNP this am 1510.? His I&Os are not accurately maintained due to difficulties with urination related to large inguinal hernia.? He does report some improvement in his leg edema and breathing.? Oxygen saturation 99% on room air.? On examination he continues to have +2 pitting lower leg edema to the level of the knees and prominent JVD.? Echocardiogram shows EF 10-15%, mod increase in RV size and decrease in RV systolic function, Bio AVR and MVR are functioning normally, mod to severe TR. Notes from Dr Briscoe recent visit reviewed. Case reviewed with Dr Larry. Pt will need more aggressive diuresis - Will start on Lasix drip at 10mg/hr. He will need ihll cath - msg sent to hospitalist regarding urology consult for placement. He needs addition of neurohormonal modulation agent - Entresto. Needs better Afib rate control. - Will increase Metoprolol to q 6 hr, and give Digoxin 0.25 IV x 2 doses today. Strict I&O monitoring as able.? Close monitoring of electrolytes and kidney function with electrolyte replacement as warranted.?We will follow.? <DEBRA Saxena - Last Filed: 02/18/22 12:25> Admit with increased leg swelling and orthopnea at the direction of his primary industrial hygiene manager Dr. Briscoe. Evidence of fluid overload on examination.? History of cardiomyopathy with prior EF 45%. Echo 01/16/22 showed reduction in EF to 22% for unclear reason. It could be related to his Afib with uncontrolled rates. BNP initially elevated at 1618.? He was normally on Bumex 2 mg daily prior to admit.?This admit he has been receving Lasix 40 mg IV b.i.d, which was increased to 60mg bid yesterday. BNP this am 1510.? His I&Os are not accurately maintained due to difficulties with urination related to large inguinal hernia.? He does report some improvement in his leg edema and breathing.? Oxygen saturation 99% on room air.? On examination he continues to have +2 pitting lower leg edema to the level of the knees and prominent JVD.? Echocardiogram shows EF 10-15%, mod increase in RV size and decrease in RV systolic function, Bio AVR and MVR are functioning normally, mod to severe TR. Notes from Dr Briscoe recent visit reviewed. Case reviewed with Dr Larry. Pt will need more aggressive diuresis - Will start on Lasix drip at 10mg/hr. He will need hill cath - msg sent to hospitalist regarding urology consult for placement. He needs addition of neurohormonal modulation agent - Entresto. Needs better Afib rate control. - Will increase Metoprolol to q 6 hr, and give Digoxin 0.25 IV x 2 doses today. Strict I&O monitoring as able.? Close monitoring of electrolytes and kidney function with electrolyte replacement as warranted.?We will follow.? Patient seen and examined. Case discussed with Irene Simental. Also had a very long discussion with patient. Patient is very frustrated about overall his condition and his care. He is not sure however his heart condition has deteriorated so rapidly. However seems like from prior notes from his industrial hygiene manager's office that this is not a new finding however his echocardiogram does show significant worsening his LV ejection fraction. He continues to remain short of breath and fluid overloaded. His atrial fibrillation is also difficult to control. Four not he needs more aggressive diuresis. He is very resistant to that idea, although discussed with him that this is necessary to improve his heart failure syndrome and hospital outcome. He reluctantly agreed. He said in the past he has had issues with that. Start him on Lasix 10 mg an hour drip. Strict intake and output is need to be done. This is not happen because of his hernia and the way he urinates. Consider catheterization. Also will give him digoxin 0.25 mg IV doses every 6 hours. Also increase metoprolol. His blood pressure is on the lower side. Initially we had thought about starting him on Entresto therapy but given that his blood pressure is low will switch him to Diovan 20 mg b.i.d.. Goal blood pressure up to 100 systolic. If his rate becomes difficult control may need to consider rhythm control approach with IV amiodarone therapy and then subsequent synchronized cardioversion. He is reluctant to this idea as well. <Houston Larry MD - Last Filed: 02/18/22 16:06> (2) Cardiomyopathy: Status: Acute <DEBRA Saxena - Last Filed: 02/18/22 12:25> Assessment and Plan: Seems to have a newer worsening of EF and HF symptoms. Could be related to AF, elevated rates. <DEBRA Saxena - Last Filed: 02/18/22 12:25> (3) Afib: Status: Acute <DEBRA Saxena - Last Filed: 02/18/22 12:25> Assessment and Plan: History of persistent atrial fibrillation.? Prior CVR and amiodarone use, which was stopped due to GI side effects. Tele this admit shows afib rates have not been well controlled in last few days, currently ranging 90s- 130s. He is on metoprolol and digoxin for heart rate control. Dose increases as above. Ongoing Tele monitoring. He is on Eliquis for anticoagulation.? No reports of bleeding.? Hemoglobin stable at 10.6. Ongoing telemetry monitoring <DEBRA Saxena - Last Filed: 02/18/22 12:25> History of persistent atrial fibrillation.? Prior CVR and amiodarone use, which was stopped due to GI side effects. Tele this admit shows afib rates have not been well controlled in last few days, currently ranging 90s- 130s. He is on metoprolol and digoxin for heart rate control. Dose increases as above. Ongoing Tele monitoring. He is on Eliquis for anticoagulation.? No reports of bleeding.? Hemoglobin stable at 10.6. Ongoing telemetry monitoring See above Continue aggressive rate control as above. Continue oral anticoagulation therapy. Patient very resistant to treatment id has. <Houston Larry MD - Last Filed: 02/18/22 16:06> Time Spent With Patient Time: Total time spent is greater than 50% in coordination of care (as documented) at patient's floor/unit and/or counseling patient: 24 <DEBRA Saxena - Last Filed: 02/18/22 12:25> Progress Note: Quality Stroke Does the patient have a stroke diagnosis?: No <DEBRA Saxena - Last Filed: 02/18/22 12:25> Procedures Date of Service Date of Service: 02/18/22 <DEBRA Saxena - Last Filed: 02/18/22 12:25>
--- NOTE | 2022-02-18 14:09 | HO.PM.IMPN ---
Subjective Subjective Date of Service: 02/18/22 Interval History: cc: improved shortness of breath and lower extremities edema concerned about his passing the urine Still AFib with RVR BNP increased to 1500 interval history: improving le edema Review of Systems No fever, chills or weakness No chest pain, palpitation No shortness of breath or coughing , edema improving No abdominal pain, nausea or vomiting No urinary symptoms bilateral lower extremity stasis dermatitis Physical Exam Vital Signs: Vital Signs: Last Vital Signs Temp 98.3 F 02/18/22 11:35 Pulse 95 02/18/22 11:35 Resp 17 02/18/22 11:35 BP 104/69 02/18/22 11:35 Pulse Ox 99 02/18/22 11:35 BMI result Body Mass Index 27.5 Const: Other: Constitutional : Alert, oriented, not in distress Neck : Normal inspection, Supple Cardiovascular : RRR, no JVP, +1 bilateral lower extremity edema Respiratory : fair bilateral air entry, no crackles, wheezes or rhonchi Gastrointestinal: soft, lax, Normal bowel sounds, Non tender Skin : Warm, Dry, bilateral stasis dermatitis picture. Neurological : Alert & oriented x3, No focal deficit , CN 2-12 within normal Objective Data Active Medications Acetaminophen (Acetaminophen 325 Mg Tablet) 650 mg PO Q6H PRN PRN Reason: Pain, Mild (Pain Scale 1-3) Last Admin: 02/15/22 15:49 Dose: 650 mg Documented by: JANINA Apixaban (Apixaban 5 Mg Tablet) 5 mg PO BID [facility] Last Admin: 02/18/22 08:42 Dose: 5 mg Documented by: SAPPHIRE Atorvastatin Calcium (Atorvastatin Calcium 40 Mg Tablet) 40 mg PO BEDTIME [facility] Last Admin: 02/17/22 20:52 Dose: 40 mg Documented by: CAMILA Digoxin (Digoxin 0.125 Mg Tablet) 0.125 mg PO Q2D [facility] Last Admin: 02/18/22 08:42 Dose: 0.125 mg Documented by: SAPPHIRE Digoxin (Digoxin 0.5 Mg/2 Ml Ampul) 0.25 mg IVPUSH Q6H [facility] Stop: 02/18/22 18:46 Furosemide 200 mg/ Sodium (Chloride) 100 mls @ 5 mls/hr IVCONT .Q20H [facility] Latanoprost (Latanoprost 0.005 % Ophth Elena 2.5 Ml Drops) 1 drop EYE-BOTH BEDTIME [facility] Last Admin: 02/17/22 20:55 Dose: 1 drop Documented by: CAMILA Melatonin (Melatonin 3 Mg Tablet) 6 mg PO BEDTIME PRN PRN Reason: Insomnia Metoprolol Tartrate (Metoprolol Tartrate 25 Mg Tablet) 25 mg PO QID [facility]; Protocol Montelukast Sodium (Montelukast Sodium 10 Mg Tablet) 10 mg PO BEDTIME [facility] Last Admin: 02/17/22 20:51 Dose: 10 mg Documented by: CAMILA Patient Own Medication ( Symbicort 160/4.5mcg ) 2 each INHALE RBID [facility] Last Admin: 02/18/22 08:03 Dose: Not Given Documented by: LOVELY Non-Admin Reason: Patient Refused Patient Own Medication ( Proventil Hfa) 2 each INHALE Q4H PRN PRN Reason: sob Pharmacy Consult (Consult Rx Perform Med Rec) 1 each MISCELLANE ONCE PRN PRN Reason: Consult order Pharmacy Consult (Consult Rx Perform Med Rec) 1 each MISCELLANE ONCE PRN PRN Reason: Consult order Sacubitril/Valsartan (Sacubitril/Valsartan 1 Tab Tablet) 1 tab PO BID [facility]; Protocol Last Admin: 02/18/22 13:53 Dose: Not Given Documented by: SAPPHIRE Non-Admin Reason: Physician Held Med Senna (Sennosides 8.6 Mg Tablet) 17.2 mg PO BEDTIME PRN PRN Reason: Constipation Sodium Chloride (0.9 % Sodium Chloride Flush 3 Ml Syringe) 3 ml IVFLUSH QSHIFT [facility] Last Admin: 02/18/22 08:42 Dose: 3 ml Documented by: SAPPHIRE Spironolactone (Spironolactone 25 Mg Tablet) 25 mg PO DAILY [facility]; Protocol Last Admin: 02/18/22 08:43 Dose: 25 mg Documented by: SAPPHIRE Labs CBC & Chem 7: 02/17/22 06:18 02/18/22 05:39 Labs: Laboratory Results - last 24 hr 02/18/22 02/18/22 05:39 05:39 Anion Gap 14 Estim Creat Clear Calc 51.0 Estimated GFR 53 Random Glucose 101 Calcium 9.0 B-Natriuretic Peptide 1510 H Assessment and Plan (1) Cardiomyopathy: Status: Acute (2) Acute exacerbation of CHF (congestive heart failure): Status: Acute (3) Urinary problem in male: Status: Acute Plan 72M sent in by cardiology for chf and afib with rvr acute on chronic systolic chf Improving Echo showed decreased EF to 10-15% Change Lasix to IV drip per Cardiology cardio following, start Entresto and extra doses of digoxin monitor bmp continue toprol, aldactone chronic afib with rvr on toprol, dig, minimaly symptomatic low digoxin level, Cardiology recommended continue Q 2 days dose monitor on tele eliquis Urinary problem Unable to pass urine freely because of the hernia Urology consulted, consider placing Mcintosh catheter CKD III stable inguinal hernia with pain surgery eval COPD prn bronchodilators inhaled LABA/ICS liver cirrhosis complicated by thrombocytopenia appears compensated, ?NAFLD vs cardiogenic dvt prophylaxis - on eliquis full code reason for continued hospitalization: needs better heart rate controlAnd fluid management with iv diuresis Quality Stroke Does the patient have a stroke diagnosis?: No VTE Prior VTE?: No VTE Risk Level:: Medical - moderate - high VTE Device Contraindication: Treatment Not Indicated VTE Drug Contraindication: N/A - Med Ordered
[2022-02-18] MEDS: Digoxin 0.5 MG/2 ML AMPUL 0.25 MG IVPUSH ×2 (14:25→20:58)
[2022-02-18] MEDS: Furosemide 200 MG in 0.9 % Sodium Chloride 80 ML IVCONT (14:50)
--- NOTE | 2022-02-18 15:15 | PC.NURSE ---
pt reported feeling lightheaded and dizzy. Vitals checked. BP 119/72 P 95 O2 96 on RA. After complaints of lightheadedness/dizziness pt made high fall risk. Pt refused to wear socks so socks put on end of bed, refused cam in room, refused chair alarm. Pt educated to call before attempting to get up. Pt being aggressive verbally toward staff. Nursing home supervisor made aware. will continue to monitor.
--- NOTE | 2022-02-18 15:22 | MHC.CM.PN ---
PATIENT THREATENING ADJUNCT FACULTY FOR MEDICAL TERMINOLOGY STATING HE WANTS TO SHOVE THIS PHONE UP YOUR A PATIENT REMINDED NOT TO THREATEN STAFF. HE TELLS THIS MANAGER [employer]ADE MARKETING THAT HE IS 'TIRED OF NOT GETTING ANSWERS PATIENT REMINDED THAT HE HAS BEEN GIVEN ANSWERS PATIENT POINTS TO HIS PELVIC AREA AND STATES I NEED SOMEONE TO FIX MY PENIS . UPON EXITING ROOM, THIS MANAGER [employer] REMINDED PATIENT AGAIN TO NOT MAKE VERBAL THREATS TO STAFF IT IS INTERFERING WITH PATIENT CARE RN AWARE OF CONVERSATION
[2022-02-18] MEDS: Metoprolol Tartrate 25 MG TABLET PO ×2 (16:59→20:57)
[2022-02-18] MEDS: Montelukast Sodium 10 MG TABLET PO (20:57)
[2022-02-18] MEDS: Valsartan 40 MG TABLET 20 MG PO (20:57)
[2022-02-18] MEDS: Atorvastatin Calcium 40 MG TABLET PO (20:57)
[2022-02-18] MEDS: Latanoprost 0.005 % Ophth Sol 2.5 ML DROPS 1 DROP EYE-BOTH (21:01)
[2022-02-19] VITALS (8 sets, daily range): BP systolic 104–136; BP diastolic 51–76; PULSE 58–84; RESP 16–18; TEMP 36.1–37.2; O2SAT 96–99; BMI 26.8
--- NOTE | 2022-02-19 | ECG_ITS ---
Test Reason : ? rhythm Blood Pressure : / mmHG Vent. Rate : 084 BPM Atrial Rate : 000 BPM P-R Int : 000 ms QRS Dur : 104 ms QT Int : 400 ms P-R-T Axes : 000 016 216 degrees QTc Int : 472 ms Possible Normal sinus rhythm Nonspecific T wave abnormality Prolonged QT Abnormal ECG When compared with ECG of 19-FEB-2022 11:49, Premature ventricular complexes are no longer Present Referred By: Irene Simental Electronically Signed By:ДМИТРИЙ YOUNG MD
--- NOTE | 2022-02-19 | ECG_ITS ---
Test Reason : t wave inversion Blood Pressure : / mmHG Vent. Rate : 087 BPM Atrial Rate : 087 BPM P-R Int : 112 ms QRS Dur : 102 ms QT Int : 406 ms P-R-T Axes : 138 016 184 degrees QTc Int : 488 ms Possible Normal sinus rhythm with low amplitude P waves with Premature ventricular complexes Nonspecific T wave abnormality Prolonged QT Abnormal ECG When compared with ECG of 14-FEB-2022 16:19, Normal sinus rhythm has replaced Atrial fibrillation Referred By: Irene Simental Electronically Signed By:ДМИРТИЙ YOUNG MD
[2022-02-19 06:43] LABS: Anion Gap 13 (12-20); Blood Urea Nitrogen 26 mg/dL (9-16); Calcium 9.5 mg/dL (8.4-10.2); Carbon Dioxide 30 mmol/L (22-29); Chloride 100 mmol/L (96-108); Creatinine Clr Calc Pharmacy 42.7; Estimated Glomerular Filt Rate 47; Glucose Random 96 mg/dL (60-115); Potassium 3.7 mmol/L (3.3-5.1); Sodium 139 mmol/L (135-145)
[2022-02-19 06:50] LABS: B Type Natriuretic Peptide 1721 pg/mL (<100)
[2022-02-19] MEDS: Furosemide 200 MG in 0.9 % Sodium Chloride 80 ML IVCONT (07:12)
[2022-02-19] MEDS: Apixaban 5 MG TABLET PO ×2 (10:22→21:56)
--- NOTE | 2022-02-19 11:50 | MHC.CM.PN ---
STILL WITH FLUID OVERLOAD POTENTIAL FOR RETURN HOME ON Tuesday02/21/22
--- NOTE | 2022-02-19 12:14 | PM.PNCARD ---
Subjective Subjective Date of Service: 02/19/22 <DEBRA Saxena - Last Filed: 02/19/22 13:22> 02/19/22 <Houston Larry MD - Last Filed: 02/19/22 13:34> Principal diagnosis: Congestive heart failure, afib RVR <DEBRA Saxena - Last Filed: 02/19/22 13:22> Interval history: cardiology follow up for the above. Seen at 1230. Today he is observed resting in chair. He reports breathing is comfortable at rest. No chest pains, palpitations, dizziness.Leg edema improving. IV Lasix drip infusing at 10mg hr. He reports ongoing issues with urination. Has been seen by urology and he does not want to have hill cath placed. <DEBRA Saxena - Last Filed: 02/19/22 13:22> Review of Systems Review of Systems as above <DEBRA Saxena - Last Filed: 02/19/22 13:22> Yes all other systems are reviewed and are negative <DEBRA Saxena - Last Filed: 02/19/22 13:22> Physical Exam Vital Signs: Last Vital Signs Temp 98.2 F 02/19/22 07:51 Pulse 74 02/19/22 08:31 Resp 18 02/19/22 08:31 BP 104/55 L 02/19/22 07:51 Pulse Ox 99 02/19/22 07:51 BMI result Body Mass Index 26.8 <DEBRA Saxena - Last Filed: 02/19/22 13:22> Const General: cooperative, no acute distress, alert and awake <DEBRA Saxena - Last Filed: 02/19/22 13:22> Orientation/consciousness: patient oriented x3 <DEBRA Saxena Last Filed: 02/19/22 13:22> Eyes Conjunctivae: conjunctivae normal <DEBRA Saxena Last Filed: 02/19/22 13:22> Neck Neck: Yes JVD <DEBRA Saxena - Last Filed: 02/19/22 13:22> Resp Effort & Inspection: normal respiratory effort, able to speak in complete sentences and not labored <Irene SimentalANA-C - Last Filed: 02/19/22 13:22> Auscultation: clear to auscultation bilaterally, no rales, no rhonchi and no wheezes <Irene SimentalANA-C - Last Filed: 02/19/22 13:22> Cardio Jugular venous distension: JVD present <Irene KamilleANA-C - Last Filed: 02/19/22 13:22> Rate: regular rate <Irene M Kamille BEDSPREAD INSPECTOR-C - Last Filed: 02/19/22 13:22> Rhythm: regular rhythm <[place] KamilleANA-C - Last Filed: 02/19/22 13:22> Heart sounds: S1 normal heart sound present and S2 normal heart sound present <Irene KamilleANA-C - Last Filed: 02/19/22 13:22> Peripheral pulses: Peripheral pulses 2+ throughout <Irene KamilleANA-C - Last Filed: 02/19/22 13:22> GI Inspection: Yes normal to inspection <Irene KamilleANA-C - Last Filed: 02/19/22 13:22> Neuro General: patient oriented x3 <Irene SimentalANA-C - Last Filed: 02/19/22 13:22> Extrem Other: bilateral lower leg edema which shows mild improvement, some redness on present on right <Irene KamilleANA-C - Last Filed: 02/19/22 13:22> Objective Labs and Meds Result diagrams: : 02/17/22 06:18 02/19/22 06:10 <Irene KamilleANA-C - Last Filed: 02/19/22 13:22> Lab results: Laboratory Results - last 24 hr 02/19/22 02/19/22 06:10 06:10 Sodium 139 Potassium 3.7 Chloride 100 Carbon Dioxide 30 H Anion Gap 13 BUN 26 H Creatinine 1.46 H Estim Creat Clear Calc 42.7 Estimated GFR 47 Random Glucose 96 Calcium 9.5 B-Natriuretic Peptide 1721 H <Irene SimentalANA-C - Last Filed: 02/19/22 13:22> Progress Note: A&P Assessment and plan (1) Acute exacerbation of CHF (congestive heart failure): Status: Acute <DEBRA Saxena - Last Filed: 02/19/22 13:22> Assessment and Plan: Admit with increased leg swelling and orthopnea at the direction of 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 Briscoe.? Evidence of fluid overload on examination.? History of cardiomyopathy with prior EF 45%. Echo 01/16/22 showed reduction in EF to 22% for unclear reason. It could be related to his Afib with uncontrolled rates.? BNP initially elevated at 1618.? He was normally on Bumex 2 mg daily prior to admit.?This admit he has been receving? Lasix 40 mg IV b.i.d, which was increased to 60mg bid then yesterday changed to Lasix drip at 10 mg/hr due to ongoing signs of HF and elevated BNP. His I&Os are still not accurately maintained due to difficulties with urination related to large inguinal hernia.?He is declining placement of hill cath by urologist. He does report improvement in his leg edema and breathing since admit.? Oxygen saturation 99% on room air.? On examination he has +1 2 pitting lower leg edema to the level below knees and JVD.? Echocardiogram shows EF 10-15%, mod increase in RV size and decrease in RV systolic function, Bio AVR and MVR are functioning normally, mod to severe TR. Will continue to diurese with Lasix drip. We recommend hill cath to assist with pt comfort from frequent urination and for accurate I+O monitoring. Low dose Diovan was added for neurohormonal modulation agent. Changed from Entresto due to low BPs. His heart rate is now better controlled - will continue Metoprolol. Close monitoring of electrolytes and kidney function with electrolyte replacement as warranted.?We will follow.? 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 Briscoe.? Evidence of fluid overload on examination.? History of cardiomyopathy with prior EF 45%. Echo 01/16/22 showed reduction in EF to 22% for unclear reason. It could be related to his Afib with uncontrolled rates.? BNP initially elevated at 1618.? He was normally on Bumex 2 mg daily prior to admit.?This admit he has been receving? Lasix 40 mg IV b.i.d, which was increased to 60mg bid then yesterday changed to Lasix drip at 10 mg/hr due to ongoing signs of HF and elevated BNP. His I&Os are still not accurately maintained due to difficulties with urination related to large inguinal hernia.?He is declining placement of hill cath by urologist. He does report improvement in his leg edema and breathing since admit.? Oxygen saturation 99% on room air.? On examination he has +1 2 pitting lower leg edema to the level below knees and JVD.? Echocardiogram shows EF 10-15%, mod increase in RV size and decrease in RV systolic function, Bio AVR and MVR are functioning normally, mod to severe TR. Will continue to diurese with Lasix drip. We recommend hill cath to assist with pt comfort from frequent urination and for accurate I+O monitoring. Low dose Diovan was added for neurohormonal modulation agent. Changed from Entresto due to low BPs. His heart rate is now better controlled - will continue Metoprolol. Close monitoring of electrolytes and kidney function with electrolyte replacement as warranted.?We will follow.? Patient seen and examined. Case discussed with Irene Simental. Patient refused Hill catheter yesterday and again refused it today. This poses a significant challenge in monitoring his intake and output chart due to dribbling urination. He is very noncompliant with this. Patient seems to have been diuresing well although his BNP and creatinine have both increased despite Lasix therapy. He said he has been diuresing a lot. His shortness of breath is improved and is currently not using any oxygen. Has tolerated low-dose valsartan and increase metoprolol and digoxin therapy. His rate is better controlled and actually noted to be in sinus rhythm very low amplitude P-wave suggestive atrial myopathy process. Continue IV Lasix drip today. Strict intake and output chart as much as possible. Continue to trend renal function and electrolytes. Replace electrolytes as needed. Please trend BNP as well as it is very difficult to assess his fluid status. <Houston Larry MD - Last Filed: 02/19/22 13:34> (2) Cardiomyopathy: Status: Acute <Irene Simental NP-C - Last Filed: 02/19/22 13:22> Assessment and Plan: Seems to have a newer worsening of EF and HF symptoms. Could be related to AF, elevated rates <Irene Canchola DEBRA Simental - Last Filed: 02/19/22 13:22> Seems to have a newer worsening of EF and HF symptoms. 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 Now is converted to sinus rhythm with better rate control. Continue metoprolol therapy will as amiodarone see below. <Houston Larry MD - Last Filed: 02/19/22 13:34> (3) Afib: Status: Acute <Irene Jesika DEBRA Simental - Last Filed: 02/19/22 13:22> Assessment and Plan: History of persistent atrial fibrillation.? Prior CVR and amiodarone use, which was stopped due to GI side effects. Tele this admit shows afib rates have not been well controlled. Dig level was < 0.3. He was given 2 doses of Dig 0.25 mg IV and metoprolol dose was increased yesterday. Tele today shows what looks like SR with PACs and PVCs. EKG done which shows small P waves. Obtaining repeat EKG to better eval. If in SR confirmed, will consider the start of Amiodarone to help maintain SR. At this time, continue metoprolol and digoxin for heart rate control. Ongoing Tele monitoring. He is on Eliquis for anticoagulation.? No reports of bleeding.? Hemoglobin stable at 10.6. <Ierne Jesika DEBRA Simental - Last Filed: 02/19/22 13:22> History of persistent atrial fibrillation.? Prior CVR and amiodarone use, which was stopped due to GI side effects. Tele this admit shows afib rates have not been well controlled. Dig level was < 0.3. He was given 2 doses of Dig 0.25 mg IV and metoprolol dose was increased yesterday. Tele today shows what looks like SR with PACs and PVCs. EKG done which shows small P waves. Obtaining repeat EKG to better eval. If in SR confirmed, will consider the start of Amiodarone to help maintain SR. At this time, continue metoprolol and digoxin for heart rate control. Ongoing Tele monitoring. He is on Eliquis for anticoagulation.? No reports of bleeding.? Hemoglobin stable at 10.6. Patient seems to have converted to sinus rhythm. Will take this opportunity to maintain rhythm with amiodarone therapy with 200 mg b.i.d. loading for 1 month as he has not tolerated higher dose of amiodarone in the past. Continue to monitor EKGs done at the daily basis. Discontinue digoxin. Continue metoprolol therapy. Continue full oral anticoagulation with Eliquis. Continue to trend hematocrit. Will follow with you <Houston Larry MD - Last Filed: 02/19/22 13:34> Time Spent With Patient Time: Total time spent is greater than 50% in coordination of care (as documented) at patient's floor/unit and/or counseling patient: 24 <DEBRA Saxena - Last Filed: 02/19/22 13:22> Progress Note: Quality Stroke Does the patient have a stroke diagnosis?: No <DEBRA Saxena - Last Filed: 02/19/22 13:22> Procedures Date of Service Date of Service: 02/19/22 <DEBRA Saxena - Last Filed: 02/19/22 13:22>
[2022-02-19] MEDS: Spironolactone 25 MG TABLET PO (12:58)
[2022-02-19] MEDS: Metoprolol Tartrate 25 MG TABLET PO ×3 (12:58→21:56)
--- NOTE | 2022-02-19 13:54 | HO.PM.IMPN ---
Subjective Subjective Date of Service: 02/19/22 Interval History: improved shortness of breath and lower extremities edema A still having abdominal distension Converted back to sinus rhythm overnight BNP increased to 1700 interval history: improving leg edema Review of Systems No fever, chills or weakness No chest pain, palpitation No shortness of breath or coughing , edema improving No abdominal pain, nausea or vomiting No urinary symptoms bilateral lower extremity stasis dermatitis Physical Exam Vital Signs: Vital Signs: Last Vital Signs Temp 98.9 F 02/19/22 12:00 Pulse 84 02/19/22 12:00 Resp 18 02/19/22 12:00 BP 106/51 L 02/19/22 12:00 Pulse Ox 98 02/19/22 12:00 BMI result Body Mass Index 26.8 Const: Other: Constitutional : Alert, oriented, not in distress Neck : Normal inspection, Supple Cardiovascular : RRR, no JVP, +1 bilateral lower extremity edema Respiratory : fair bilateral air entry, no crackles, wheezes or rhonchi Gastrointestinal: soft, lax, Normal bowel sounds, Non tender Skin : Warm, Dry, bilateral stasis dermatitis picture. Neurological : Alert & oriented x3, No focal deficit , CN 2-12 within normal Objective Data Active Medications Acetaminophen (Acetaminophen 325 Mg Tablet) 650 mg PO Q6H PRN PRN Reason: Pain, Mild (Pain Scale 1-3) Last Admin: 02/15/22 15:49 Dose: 650 mg Documented by: JANINA Amiodarone HCl (Amiodarone Hcl 200 Mg Tablet) 200 mg PO BID [facility] Apixaban (Apixaban 5 Mg Tablet) 5 mg PO BID [facility] Last Admin: 02/19/22 10:22 Dose: 5 mg Documented by: CONRAD Atorvastatin Calcium (Atorvastatin Calcium 40 Mg Tablet) 40 mg PO BEDTIME [facility] Last Admin: 02/18/22 20:57 Dose: 40 mg Documented by: DOMINICK Furosemide 200 mg/ Sodium (Chloride) 100 mls @ 5 mls/hr IVCONT .Q20H [facility] Last Admin: 02/19/22 07:12 Dose: 10 mg/hr, 5 mls/hr Documented by: DOMINICK Latanoprost (Latanoprost 0.005 % Ophth Elena 2.5 Ml Drops) 1 drop EYE-BOTH BEDTIME [facility] Last Admin: 02/18/22 21:01 Dose: 1 drop Documented by: DOMINICK Melatonin (Melatonin 3 Mg Tablet) 6 mg PO BEDTIME PRN PRN Reason: Insomnia Metoprolol Tartrate (Metoprolol Tartrate 25 Mg Tablet) 25 mg PO QID [facility]; Protocol Last Admin: 02/19/22 12:58 Dose: 25 mg Documented by: CONRAD Montelukast Sodium (Montelukast Sodium 10 Mg Tablet) 10 mg PO BEDTIME [facility] Last Admin: 02/18/22 20:57 Dose: 10 mg Documented by: DOMINICK Patient Own Medication ( Symbicort 160/4.5mcg ) 2 each INHALE RBID [facility] Last Admin: 02/19/22 08:29 Dose: 2 each Documented by: FLORIAN Patient Own Medication ( Proventil Hfa) 2 each INHALE Q4H PRN PRN Reason: sob Pharmacy Consult (Consult Rx Perform Med Rec) 1 each MISCELLANE ONCE PRN PRN Reason: Consult order Pharmacy Consult (Consult Rx Perform Med Rec) 1 each MISCELLANE ONCE PRN PRN Reason: Consult order Senna (Sennosides 8.6 Mg Tablet) 17.2 mg PO BEDTIME PRN PRN Reason: Constipation Sodium Chloride (0.9 % Sodium Chloride Flush 3 Ml Syringe) 3 ml IVFLUSH QSHIFT [facility] Last Admin: 02/19/22 07:26 Dose: Not Given Documented by: CONRAD Non-Admin Reason: IV Running Spironolactone (Spironolactone 25 Mg Tablet) 25 mg PO DAILY [facility]; Protocol Last Admin: 02/19/22 12:58 Dose: 25 mg Documented by: CONRAD Valsartan (Valsartan 40 Mg Tablet) 20 mg PO BID [facility]; Protocol Last Admin: 02/19/22 11:31 Dose: Not Given Documented by: CONRAD Non-Admin Reason: Decreased Blood Pressure Labs CBC & Chem 7: 02/17/22 06:18 02/19/22 06:10 Labs: Laboratory Results - last 24 hr 02/19/22 02/19/22 06:10 06:10 Anion Gap 13 Estim Creat Clear Calc 42.7 Estimated GFR 47 Random Glucose 96 Calcium 9.5 B-Natriuretic Peptide 1721 H Assessment and Plan (1) Urinary problem in male: Status: Acute (2) Acute exacerbation of CHF (congestive heart failure): Status: Acute (3) Cardiomyopathy: Status: Acute (4) Atrial fibrillation with rapid ventricular response: Status: Acute Plan 72M sent in by cardiology for chf and afib with rvr acute on chronic systolic chf Improving Echo showed decreased EF to 10-15% BNP increased to 1700 Change Lasix to IV drip per Cardiology cardio following, start losartan monitor bmp continue toprol, aldactone chronic afib with rvr Converted back to sinus Discontinue digoxin continue metoprolol and start amiodarone monitor on tele eliquis Urinary problem Unable to pass urine freely because of the hernia Urology consulted, to place Mcintosh catheter CKD III stable inguinal hernia with pain surgery eval COPD prn bronchodilators inhaled LABA/ICS liver cirrhosis complicated by thrombocytopenia appears compensated, ?NAFLD vs cardiogenic dvt prophylaxis - on eliquis reason for continued hospitalization: needs better heart rate controlAnd fluid management with iv diuresis Quality Stroke Does the patient have a stroke diagnosis?: No VTE Prior VTE?: No VTE Risk Level:: Medical - moderate - high VTE Device Contraindication: Treatment Not Indicated VTE Drug Contraindication: N/A - Med Ordered
[2022-02-19] MEDS: Amiodarone HCL 200 MG TABLET PO ×2 (15:16→21:56)
[2022-02-19] MEDS: Acetaminophen 325 MG TABLET 650 MG PO (17:29)
[2022-02-19] MEDS: Valsartan 40 MG TABLET 20 MG PO (21:56)
[2022-02-19] MEDS: Montelukast Sodium 10 MG TABLET PO (21:56)
[2022-02-19] MEDS: Atorvastatin Calcium 40 MG TABLET PO (21:56)
[2022-02-19] MEDS: Melatonin 3 MG TABLET 6 MG PO (21:57)
[2022-02-19] MEDS: 0.9 % Sodium Chloride Flush 3 ML SYRINGE IVFLUSH (21:57)
[2022-02-19] MEDS: Latanoprost 0.005 % Ophth Sol 2.5 ML DROPS 1 DROP EYE-BOTH (22:06)
[2022-02-20] MEDS: Furosemide 200 MG in 0.9 % Sodium Chloride 80 ML IVCONT (04:46)
[2022-02-20 06:22] LABS: Anion Gap 14 (12-20); Blood Urea Nitrogen 30 mg/dL (9-16); Calcium 9.5 mg/dL (8.4-10.2); Carbon Dioxide 30 mmol/L (22-29); Chloride 99 mmol/L (96-108); Creatinine Clr Calc Pharmacy 40.5; Estimated Glomerular Filt Rate 45; Glucose Random 92 mg/dL (60-115); Potassium 3.8 mmol/L (3.3-5.1); Sodium 139 mmol/L (135-145)
[2022-02-20 06:31] LABS: B Type Natriuretic Peptide 1073 pg/mL (<100)
[2022-02-20 07:53] VITALS: BP 103/53; PULSE 77; RESP 20; TEMP 36.6; O2SAT 99
[2022-02-20 09:52] VITALS: BP 103/53; PULSE 77; O2SAT 99
[2022-02-20] MEDS: Valsartan 40 MG TABLET 20 MG PO (10:08)
[2022-02-20] MEDS: Apixaban 5 MG TABLET PO (10:08)
[2022-02-20] MEDS: Amiodarone HCL 200 MG TABLET PO (10:08)
[2022-02-20] MEDS: Metoprolol Tartrate 25 MG TABLET PO ×2 (10:08→14:26)
[2022-02-20] MEDS: Spironolactone 25 MG TABLET PO (10:10)
--- NOTE | 2022-02-20 10:49 | MHC.CM.PN ---
[facility] PT WILL BE D/C'D HOME NO SERVICES W/PT ARRANGING FOR FAMILY TO TRANSPORT
[2022-02-20 12:00] VITALS: BP 110/55; PULSE 81; RESP 20; TEMP 36.5; O2SAT 99
--- NOTE | 2022-02-20 13:13 | PM.PNCARD ---
Subjective Subjective Date of Service: 02/20/22 Principal diagnosis: Congestive heart failure, afib RVR Interval history: Feeling better. On amiodarone for Afib. Physical Exam Vital Signs: Last Vital Signs Temp 97.7 F 02/20/22 12:00 Pulse 81 02/20/22 12:00 Resp 20 02/20/22 12:00 BP 110/55 L 02/20/22 12:00 Pulse Ox 99 02/20/22 12:00 BMI result Body Mass Index 26.8 GENERAL APPEARANCE: in no acute distress. NECK: no carotid bruit, no signifcant jugular venous distention. SKIN: no suspicious lesions, warm and dry. HEART: no murmurs, regular rate and rhythm. LUNGS: clear to auscultation bilaterally. ABDOMEN: soft, tenderness mid abdomen which is chronic. EXTREMITIES:? mild edema . PERIPHERAL PULSES: equal. NEUROLOGIC: No gross deficits, AAO X 3 Objective Labs and Meds Result diagrams: 02/17/22 06:18 02/20/22 05:43 Lab results: Laboratory Results - last 24 hr 02/20/22 02/20/22 05:43 05:43 Sodium 139 Potassium 3.8 Chloride 99 Carbon Dioxide 30 H Anion Gap 14 BUN 30 H Creatinine 1.54 H Estim Creat Clear Calc 40.5 Estimated GFR 45 Random Glucose 92 Calcium 9.5 B-Natriuretic Peptide 1073 H Progress Note: A&P Assessment and plan (1) Afib: Status: Acute (2) Cardiomyopathy: Status: Acute (3) CHF (congestive heart failure): Status: Acute Plan 72 male with on acute on chronic heart failure. Diuresed and improving. Can change to Bumex 2 mg in AM and 1 mg in PM. c/w ARB, spironolactone and BB. f/u with Dr Briscoe. Time Spent With Patient Time: Total time spent is greater than 50% in coordination of care (as documented) at patient's floor/unit and/or counseling patient: Progress Note: Quality Stroke Does the patient have a stroke diagnosis?: No Procedures Date of Service Date of Service: 02/20/22
--- NOTE | 2022-02-20 14:42 | PM.DS ---
DS: Providers Provider Date of Service: 02/20/22 Date of admission: 02/14/22 22:04 Primary care physician: Pj Doe Consults: 02/14/22 22:03 Consult to Cardiology Routine Consulting Provider: Binu Lubin Reason for consultation: CHF 02/14/22 22:26 Consult to General Surgery Routine Consulting Provider: Yohannes Weems Reason for consultation: Inguinal hernia 02/18/22 08:50 Consult to Urology Routine Consulting Provider: Chiki Green Reason for consultation: retracted penis for eval and rec DS: Diagnosis Discharge Diagnosis (1) Urinary problem in male: Status: Acute (2) Acute exacerbation of CHF (congestive heart failure): Status: Acute (3) Cardiomyopathy: Status: Acute (4) Atrial fibrillation with rapid ventricular response: Status: Acute DS: Summary Hospital Course Hospital Course: Admission note HPI 72-year-old male with a past medical history of hypertension, CKD, CHF, asthma, history of aortic valve repair/CABG in 2014, 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 Most of the history provided with the patient patient's the bedside.? Reportedly patient been having shortness of breath-mentions it has been chronic; also report he has been having increased leg swelling; Follows with Dr. Li ace his primary professor of history who suggested him to go to the ER for IV diuresis.? Denies any fevers and chills.? Reports he has been having cough-reports is chronic no new change.? Also mentions he has inguinal hernia which has been gradually getting worse, has seen his primary surgeon who suggested currently it is reducible and will plan for surgery once cleared by Cardiology.? Per ER team patient noted to have peripheral edema; vitals are stable blood pressure on the soft side; CBC within the normal limits; chemistry showed creatinine of 1.5 on; chest x-ray showed chronic appearing reticular markings without any superimposed edema or infectious etiology.? Initial troponin was 46; EKG showed no acute changes Discussed with Dr. Lubin; who suggested admission to the hospital for further management. Hospital course The patient was admitted for treatment of acute on chronic systolic CHF as he was evaluated by Cardiology team and treated with IV Lasix 40 mg twice daily which was changed to Lasix drip afterward with good response during the hospital stay as he lost significant amount of fluid with resolution of the lower extremity edema and abdominal distension. Cardiology recommended adding losartan as well for his systolic CHF as echo was done showing ejection fraction of 10-15%. not have a good output recorded because the patient had urine problem secondary to chronic inguinal hernia that was evaluated eventually by surgical team who recommended no intervention at this point and to follow-up as outpatient with Dr. Weems in order to plan for surgery on the patient cardiac status is stable. He was seen as well by urology team who placed a Mcintosh catheter with cap to be discharged on for the time being. He developed atrial fibrillation with RVR which was controlled with increasing dose of metoprolol and adding digoxin and amiodarone by Cardiology team. He converted back to sinus rhythm and decision was made to discontinue digoxin and continue with amiodarone with higher dose of metoprolol. Increase Bumex to 2 mg in the morning and 1 mg in the afternoon Discontinue digoxin and start amiodarone 200 mg twice daily Increase metoprolol to 50 mg twice Daily Start valsartan 20 mg twice daily Monitor your weight and report any changes to your professor of history Low-salt diet, decreased Fluid intake to follow-up with surgery and Cardiology as outpatient to start planning for your hernia surgery. To follow-up with Dr. Green of Urology as outpatient Time Spent with Patient Time attestation: Total time spent providing and/or coordinating discharge services: Discharge coordination time: Greater than 30 minutes Quality: Safe Use of Opioids Does Pt have an Active Cancer Diagnosis on the Problem List?: No Quality: Stroke Does the patient have a stroke diagnosis?: No Physical Exam Vital Signs: Vital Signs: Last Vital Signs Temp 97.7 F 02/20/22 12:00 Pulse 81 02/20/22 12:00 Resp 20 02/20/22 12:00 BP 110/55 L 02/20/22 12:00 Pulse Ox 99 02/20/22 12:00 BMI result Body Mass Index 26.8 Const: Other: Constitutional : Alert, oriented, not in distress Neck : Normal inspection, Supple Cardiovascular : RRR, no JVP, ? trace bilateral lower extremity edema Respiratory : fair bilateral air entry,? no crackles, wheezes or rhonchi Gastrointestinal:? soft, lax, Normal bowel sounds, Non tender Skin : Warm, Dry, improved bilateral stasis dermatitis picture. Neurological : Alert & oriented x3, No focal deficit , CN 2-12 within normal DS: Data Data Completed and Pending Labs on day of discharge: Laboratory Results - last 24 hr 02/20/22 02/20/22 05:43 05:43 Sodium 139 Potassium 3.8 Chloride 99 Carbon Dioxide 30 H Anion Gap 14 BUN 30 H Creatinine 1.54 H Estim Creat Clear Calc 40.5 Estimated GFR 45 Random Glucose 92 Calcium 9.5 B-Natriuretic Peptide 1073 H Discharge Plan Discharge Patient Disposition: Home Health Service Discharge Diagnosis: heart failure exacerbation Atrial fibrillation Urinary problem Referrals: Gracy Henry FNP [Nurse Practitioner] - 1 Week Discharge Medications: New amiodarone 200 mg Tablet 200 mg PO BID 30 Days Qty: 60 0RF valsartan 40 mg Tablet 20 mg PO BID 30 Days Qty: 30 0RF Protocol: Hold for SBP< HOLD for SBP < : 90 bumetanide 1 mg tablet 1 mg PO DAILY@1700 Qty: 30 0RF metoprolol succinate 50 mg tablet extended release 24 hr 50 mg PO BID Qty: 60 0RF Continued atorvastatin 40 mg tablet 1 tab PO BEDTIME 0RF spironolactone 25 mg tablet 1 tab PO DAILY 0RF albuterol sulfate [Proventil HFA] 90 mcg/actuation HFA aerosol inhaler 2 puff inhalation DAILY 0RF Eliquis 5 mg tablet 1 tab PO BID 0RF hawthorn green 450 mg Capsule 450 mg PO BEDTIME 0RF ascorbic acid (vitamin C) [Vitamin C] 500 mg Tablet 1,000 mg PO DAILY@12 0RF epinephrine 0.3 mg/0.3 mL Auto-Injector 0.3 mg IM Q10M PRN (Reason: Anaphylaxis) 0RF budesonide-formoterol [Symbicort] 160-4.5 mcg/actuation Hfa Aerosol Inhaler 2 puff INHALATION BID 0RF Probiotic 3 billion cell Capsule 3,000 mmu cells PO DAILY@12 0RF Fish Oil 120 mg-180 mg- 60 mg-1,200 mg Capsule,Delayed Release(Dr/Ec) 1 cap PO BEDTIME 0RF latanoprost 0.005 % Drops 1 drp ophthalmic (eye) BEDTIME 0RF multivitamin Tablet 1 tab PO DAILY 0RF garlic 1,000 mg Capsule 1,000 mg PO DAILY@12 0RF montelukast 10 mg tablet 1 tab PO BEDTIME 0RF bumetanide 1 mg tablet 2 tab PO DAILY 0RF Discontinued digoxin 125 mcg (0.125 mg) tablet 1 tab PO Q OTHER DAY 0RF metoprolol succinate 25 mg tablet extended release 24 hr 1 tab PO BID 0RF Discharge Orders: Discharge Order (Routine); Ordered 02/20/22 Ordered By: Dimas Medina Diet: advance to usual diet and low salt diet Activity on Discharge: As tolerated Stand Alone Forms: Patient Portal Discharge page Care Plan Goals: Read below Health Concerns: Read below Plan of Treatment: Read below Assessment: you were admitted to the hospital for evaluation of difficulty breathing and edema. Found to be in heart failure exacerbation treated with IV water pills with good response over the course of hospital stay as you were evaluated by Cardiology team. You were evaluated by Dr. Weems from surgery for abdominal wall hernia who recommended outpatient follow-up if you want surgery to be done here. Increase Bumex to 2 mg in the morning and 1 mg in the afternoon Discontinue digoxin and start amiodarone 200 mg twice daily Increase metoprolol to 50 mg twice Daily Start valsartan 20 mg twice daily Monitor your weight and report any changes to your professor of history Low-salt diet, decreased Fluid intake to follow-up with surgery and Cardiology as outpatient to start planning for your hernia surgery. To follow-up with Dr. Green of Urology as outpatient
== END 2022-02-20 17:47 | disposition home health service (06) | DRG 291 ==
LOC: HO.ED 20:29 → HO.EDOVER 22:29 → HO.S3 02-15 06:48
PROVIDERS: Internal Medicine; Nurse Practitioner Family; Admitting Provider Hospitalist; Emergency Provider Emergency Medicine; PCP Physician Assistant; Visit Provider Student in an Organized Health Care Education/Training Program
DX: I13.0 Hypertensive heart and chronic kidney disease with heart failure and stage 1 through stage 4 chronic kidney disease, or unspecified chronic kidney disease (principal); I50.23 Acute on chronic systolic (congestive) heart failure; I24.8 Other forms of acute ischemic heart disease; I48.20 Chronic atrial fibrillation, unspecified; I48.19 Other persistent atrial fibrillation; N18.30 Chronic kidney disease, stage 3 unspecified; H40.9 Unspecified glaucoma; J44.9 Chronic obstructive pulmonary disease, unspecified; K74.60 Unspecified cirrhosis of liver; K40.90 Unilateral inguinal hernia, without obstruction or gangrene, not specified as recurrent; D69.59 Other secondary thrombocytopenia; I42.9 Cardiomyopathy, unspecified; I25.10 Atherosclerotic heart disease of native coronary artery without angina pectoris; Z95.1 Presence of aortocoronary bypass graft; Z96.653 Presence of artificial knee joint, bilateral; Z20.822 Contact with and (suspected) exposure to COVID-19; Z79.01 Long term (current) use of anticoagulants; Z79.899 Other long term (current) drug therapy
CPT/HCPCS: 36415; 71046; 80048; 80076; 80162; 83735; 83880; 84484; 85025; 85027; 87635; 93005; 93306; 94640; 97162; 99285; J1160; J1940

== ENCOUNTER 2022-02-21 22:06 | Emergency (ER) | payer OTHER, SELFPAY ==
[2022-02-21 22:08] VITALS: BP 138/63; PULSE 74; RESP 19; TEMP 36.6; O2SAT 100; BMI 27.4
[2022-02-21 23:02] VITALS: BP 107/64; PULSE 78; RESP 16; TEMP 36.6; O2SAT 100
--- NOTE | 2022-02-21 23:43 | ED.MALEGU ---
HPI - Male Genitourinary General Chief complaint: Urogenital-Male Stated complaint: catheter error? blood in urine Time Seen by Provider: 02/21/22 23:16 Source: patient and family (Daughter, Maylin) Mode of arrival: ambulatory Limitations: no limitations History of Present Illness HPI Narrative: 72-year-old male who presents emergency department for evaluation of urine draining around Mcintosh catheter and dysuria. The patient was recently hospitalized here from 02/14/2022 until 02/20/2022For acute on chronic congestive heart failure requiring diuresis. During the hospitalization, the patient had a Mcintosh catheter placed for management of urinary output. The patient has a large right inguinal hernia with retraction of the penis and there was concerned about the patient's ability to urinate therefore a Mcintosh catheter was placed by the urologist. The patient was discharged home with the Mcintosh catheter in place with plan to follow-up with Urology to have the catheter removed. The patient states that he is having pain from the Mcintosh catheter and urine is leaking around the catheter. The catheter has a cap on and the patient is draining fully on a p.r.n. basis. He currently wants the catheter removed. He denied fever, chills, nausea, vomiting. He states that he has chronic abdominal pain secondary to his inguinal hernia which is no worse than his baseline. According to his daughter, the patient is also noticed blood in his urine which started today. Related Data Home Medications Medication Instructions Recorded Confirmed albuterol sulfate 90 mcg/actuation 2 puff INHALATION DAILY 04/08/21 02/14/22 aerosol inhaler (Proventil HFA) apixaban 5 mg tablet (Eliquis) 1 tab PO BID 04/08/21 02/14/22 ascorbic acid (vitamin C) 500 mg 1,000 mg PO DAILY@12 04/08/21 05/06/21 tablet (Vitamin C) atorvastatin 40 mg tablet 1 tab PO BEDTIME 04/08/21 02/14/22 budesonide-formoterol HFA 160 2 puff INHALATION BID 04/08/21 02/14/22 mcg-4.5 mcg/actuation aerosol inhaler (Symbicort) epinephrine 0.3 mg/0.3 mL 0.3 mg IM Q10M PRN 04/08/21 05/06/21 injection, auto-injector hawthorn green 450 mg capsule 450 mg PO BEDTIME 04/08/21 05/06/21 lactobacillus combination no.4 3 3,000 mmu cells PO DAILY@12 04/08/21 05/06/21 billion cell capsule (Probiotic) latanoprost 0.005 % eye drops 1 drp OPHTHALMIC (EYE) BEDTIME 04/08/21 02/14/22 [id number] oil 120 1 cap PO BEDTIME 04/08/21 05/06/21 mg-180 mg-60 mg-1,200 mg capsule, DR (Fish Oil) spironolactone 25 mg tablet 1 tab PO DAILY 04/08/21 02/14/22 garlic 1,000 mg capsule 1,000 mg PO DAILY@12 05/06/21 05/06/21 montelukast 10 mg tablet 1 tab PO BEDTIME 05/06/21 02/14/22 multivitamin 1 tab PO DAILY 05/06/21 05/06/21 bumetanide 1 mg tablet 2 tab PO DAILY 02/14/22 02/14/22 Previous Rx's Medication Instructions Recorded amiodarone 200 mg tablet 200 mg PO BID 30 Days #60 tab 02/20/22 bumetanide 1 mg tablet 1 mg PO DAILY@1700 #30 tab 02/20/22 metoprolol succinate 50 mg 50 mg PO BID #60 tab 02/20/22 tablet,extended release 24 hr valsartan 40 mg tablet 20 mg PO BID 30 Days #30 tab 02/20/22 cephalexin 500 mg capsule 500 mg PO TID 5 Days #15 cap 02/21/22 Allergies Allergy/AdvReac Type Severity Reaction Status Date / Time adhesive Allergy Severe Hives Verified 07/28/21 00:02 CASHEWS Allergy Severe Anaphylaxis Uncoded 07/28/21 00:02 peanuts Allergy Severe Anaphylaxis Uncoded 07/28/21 00:02 Review of Systems Review of Systems: Yes all other systems are reviewed and are negative [facility] Past Medical History Medical History Acute exacerbation of CHF (congestive heart failure) Afib Asthma CHF (congestive heart failure) CKD (chronic kidney disease) Headache Hx of carotid stenosis Hypertension Mitral valve regurgitation On anticoagulant therapy On beta juana at home Right inguinal hernia Tricuspid valve regurgitation Surgical History H/O aortic valve repair (~2014) History of decompression of ulnar nerve History of detached retina repair History 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) Social History Social History Household Members: None Housing: House Do you presently have visiting nurse or other home services: No Alcohol intake: current Alcohol intake frequency: holidays/special occasions only Patient Tobacco Use Status: Never used Tobacco Advance Directives: No Advance Directives Information Provided: Yes service: No Current occupational status: retired Physical Exam Vital Signs: Vital Signs: Last Vital Signs Temp 97.8 F 02/21/22 23:02 Pulse 78 02/21/22 23:02 Resp 16 02/21/22 23:02 BP 107/64 02/21/22 23:02 Pulse Ox 100 02/21/22 23:02 BMI result Body Mass Index 27.4 Const: General: cooperative and no acute distress Orientation/consciousness: oriented to person and oriented to place Limitations: no limitations HEENT: Head: Yes normal to inspection, Yes normocephalic and Yes atraumatic Ears: external ears normal General nose exam: Normal external nose present Face and sinus: Yes normal facial exam Mouth: Normal oral and palatal mucosa present Throat: Yes posterior oropharynx normal Eyes: General: appearance normal, both eyes and all related structures Pupils: Equal, round and reactive pupils present Neck: Neck: Yes normal visual inspection, Yes no lymphadenopathy, Yes trachea midline and Yes supple Chest: Chest palpation & inspection: normal inspection of the chest and normal palpation of entire chest wall Resp: Effort & Inspection: normal respiratory effort and able to speak in complete sentences Auscultation: clear to auscultation bilaterally Cardio: Rate: regular rate Rhythm: regular rhythm Heart sounds: S1 normal heart sound present, S2 normal heart sound present and no murmurs GI: Inspection: Yes normal to inspection Palpation (GI): Soft to palpation, Tenderness to palpation present (GI) (Diffuse tenderness) and no guarding Auscultation: normal bowel sounds : Other: The patient has a large right inguinal hernia which is be minimally tender to palpation, not reducible, the patient's penis is retracted and there is a Mcintosh catheter that is in place. Skin: General skin exam: no rashes or lesions noted Neuro: General: oriented to person and oriented to place Cranial nerves: Yes CN's II-XII intact bilaterally and Yes Equal, round and reactive pupils present Cognition (Neuro): normal cognition Motor exam (neuro): 5/5 motor strength present throughout Extrem: General: Yes normal to inspection Psych: Appearance: grossly normal Speech and movement: Normal speech and movement present Affect: normal affect Attitude: cooperative Thought process: Normal thought process present Thought content: Normal thought content present Course Course Course Narrative: 72-year-old male with recent hospitalization for acute on chronic congestive heart failure requiring diuresis, discharged yesterday on 02/20/2022 with a Mcintosh catheter in place. The catheter was placed to help manage the patient's input and output numbers. Prior to the Mcintosh catheter the patient states that he has been able to urinate and is now requesting that the catheter be removed. He states that urine is leaking around the catheter and he is having pain secondary to the catheter. Examination revealed that his penis is retracted knee does have a large right inguinal hernia. The patient's bladder will be drained dry and then the catheter will be removed. I will send a urine for culture. The patient will be treated for urinary tract infection empirically with Keflex 500 mg 3 times a day for 5 days. I told the patient and his daughter that if he is not able to urinate over the next 8-12 hours then he should return to the emergency department for urology evaluation and reinsertion of the Mcintosh catheter. Discharge Plan Discharge Clinical Impression: Dysuria, Encounter for Mcintosh catheter removal Patient Disposition: Home, Self-Care Additional Instructions: We removed your Mcintosh catheter in the emergency department. A urine from the Mcintosh catheter was cells for a urine culture. It sometimes takes 2-3 days to grow bacteria out of your urine. I am going to start you on an antibiotic called Keflex (cephalexin) 500 mg 3 times a day for 5 days to treat you for possible urinary tract infection. If you are not able to urinate over the next 8-12 hours or if you feel like your bladder is distended and your not making enough urine then you will need to return to the emergency department for re-evaluation by our urologist for reason surgeon of the Mcintosh catheter. Follow-up with your doctor in 2 days. Please return to the emergency department if your symptoms get worse or if you develop any symptoms that are concerning to you. Prescriptions: New cephalexin 500 mg capsule 500 mg PO TID 5 Days Qty: 15 0RF No Action atorvastatin 40 mg tablet 1 tab PO BEDTIME 0RF spironolactone 25 mg tablet 1 tab PO DAILY 0RF albuterol sulfate [Proventil HFA] 90 mcg/actuation HFA aerosol inhaler 2 puff inhalation DAILY 0RF Eliquis 5 mg tablet 1 tab PO BID 0RF hawthorn green 450 mg Capsule 450 mg PO BEDTIME 0RF ascorbic acid (vitamin C) [Vitamin C] 500 mg Tablet 1,000 mg PO DAILY@12 0RF epinephrine 0.3 mg/0.3 mL Auto-Injector 0.3 mg IM Q10M PRN (Reason: Anaphylaxis) 0RF budesonide-formoterol [Symbicort] 160-4.5 mcg/actuation Hfa Aerosol Inhaler 2 puff INHALATION BID 0RF Probiotic 3 billion cell Capsule 3,000 mmu cells PO DAILY@12 0RF Fish Oil 120 mg-180 mg- 60 mg-1,200 mg Capsule,Delayed Release(Dr/Ec) 1 cap PO BEDTIME 0RF latanoprost 0.005 % Drops 1 drp ophthalmic (eye) BEDTIME 0RF multivitamin Tablet 1 tab PO DAILY 0RF garlic 1,000 mg Capsule 1,000 mg PO DAILY@12 0RF montelukast 10 mg tablet 1 tab PO BEDTIME 0RF bumetanide 1 mg tablet 2 tab PO DAILY 0RF amiodarone 200 mg Tablet 200 mg PO BID 30 Days Qty: 60 0RF valsartan 40 mg Tablet 20 mg PO BID 30 Days Qty: 30 0RF Protocol: Hold for SBP< HOLD for SBP < : 90 bumetanide 1 mg tablet 1 mg PO DAILY@1700 Qty: 30 0RF metoprolol succinate 50 mg tablet extended release 24 hr 50 mg PO BID Qty: 60 0RF
--- NOTE | 2022-02-21 23:55 | PC.NURSE ---
Catheter removed per MD order. 175ml of red tinged, cloudy urine. Specimen sent to lab. Patient tolerated well. MD aware.
[2022-02-22] MEDS: cephALEXin 500 MG CAPSULE PO (00:01)
[2022-02-22 00:10] LABS: Appearance Urine CLOUDY; Glucose Urine UA NEG (NEG); Leukocyte Esterase Urine NEG (NEG); Nitrite Urine NEG (NEG); UACC Culture Trigger NO; Urine Blood 3+ (NEG); Urine Ketones NEG (NEG); Urine Protein 2+ MG/DL (NEG-TRACE)
[2022-02-22 00:13] LABS: Color Urine BROWN
[2022-02-22 00:14] LABS: Bacteria Urine 1+ /LPF; Squamous Epithelial Cell Urine 1+ /LPF
== END 2022-02-22 00:23 | disposition home or self-care (01) ==
PROVIDERS: Emergency Provider Emergency Medicine Emergency Medical Services
DX: R30.0 Dysuria (principal); Z79.899 Other long term (current) drug therapy
CPT/HCPCS: 81001; 99284

== ENCOUNTER 2025-07-10 10:43 | Outpatient (REF) | payer OTHER, SELFPAY ==
--- OUTSIDE RECORDS SUMMARY | 2025-07-10 13:25 | XMS_ITS | Encounter Summary ---
Author Organization [facility] Address [address] [place] [address] Phone Care Team Providers Care Roasterman Name Role Phone Li Briscoe MD Unavailable [phone] Tarik Horne MD Unavailable [phone] Pj Doe Primary Care Provider [phone] Encounter Details Date Type Department Care Team (Late st Contact Info) Description 04/14/2023 Procedure Pass [facility], Ct Scan - [address] [address] Social History Tobacco Use Types Packs/Day Years Used Date Smoking Tobacco: Former Cigars Smokeless Tobacco: Former Comments:1-2 cigars a week, quit 15 years. Alcohol Use Standard Drinks/Week Comments Yes 0 (1 standard drink = 0.6 oz pur e alcohol) social Education Answer Date Recorded Are you interested in more education? Not on rony e 02/11/2023 Are you concerned about learning? Not on file 02/11/2023 No 02/11/2023 No 02/11/2023 Digital Access Answer Date Recorded No 03/13/2023 No 03/13/2023 Reliable internet access at home? Not on file 03/13/2023 Device with a working camera? Not on file Intimate Partner Violence Answer Date R ecorded Are you denied basic needs s uch as food, clothing, or medical care? Patient unable to respond 04/14/2023 In the past 12 months have y ou been in a relationship with a person who hurts, threatens, or tries to control you? Patient unable to respond 04/14/2023 Are you denied basic needs s uch as food, clothing, or medical care? Patient unable to respond 04/14/2023 In the past 12 months have y ou been in a relationship with a person who hurts, threatens, or tries to control you? Patient unable to respond 04/14/2023 Sex and Gender Information Value Date Recorded Sex Assigned at Male 04/24/2018 1:07 PM EDT Legal Sex Male 11:46 AM EDT Gender Identity Male 04/24/2018 1:07 PM EDT Sexual Orientation Straight 05/27/2020 7: 24 PM EDT documented as of this encounter Functional Status * Calculated C-SSRS Risk Score (Lifetime/Recent) Answer Date of Assessment Author No Risk Indicated 04/14/2023 7:56 PM EDT Sravanthi Fu RN * Early Suicide Severity Rating Scale (Screener/Recent Self-Report) Question Answer Date of Assessment Author 1. Wish to be (Past 1 Month) No 023 7:56 PM EDT Sravanthi Fu RN 2. Non-Specific Active Suici mono Thoughts (Past 1 Month) No 04/14/2023 7:56 PM EDT Nabila Fu RN 6. Suicidal Behavior (Lifetime) No 3 7:56 PM EDT Sravanthi Fu RN documented as of this encounter Plan of Treatment Upcoming Encounters Date Type Department Care Team (Latest Contact Info) Description 12/05/2025 12:30 PM EST Ancillary Procedure [facility] [address] [place] [address] [address] Floor, [address] [place] [address] Claudia Eaton, [facility] [address] [facility], [address] [place] [id number] [email or web address] documented as of this encounter Visit Diagnoses Not on filedocumented in this encounter Additional Health Concerns Infection Onset Date Last Indicated Resolved Time CoV-Risk 04/14/2023 04/14/2023 04/25/2023 1:21 AM EDT documented as of this encounter Care Teams Roasterman Relationship Specialty Start Date End Date Pj Doe PA [address] [place] [id number] [email or web address] PCP - General Unknown Provider Specialty 05/05/21 Li Briscoe MD [address] [address] [email or web address] Cardiology 01/01/21 Tarik Horne MD [address] [place] [address] [place] [address] Gastroenterology 02/12/21 documented as of this encounter Additional Source Comments The information contained in this document represents components of the legal health record. It is not the complete legal health record.[facility]
--- OUTSIDE RECORDS SUMMARY | 2025-07-10 13:26 | XMS_ITS | Encounter Summary ---
Author Organization [facility] Address [address] [place] [address] Phone Care Team Providers Care Cut In Worker Name Role Phone HenryGracy logan ANA Primary Care Provider [phone] Li Briscoe MD Unavailable Tarik Horne MD Unavailable Pj Doe Primary Care Provider [phone] Encounter Details Date Type Department Care Team (Late st Contact Info) Description 03/26/2021 Ancillary Orders [facility] [address] [facility], 5th Floor, [address] [place] [address] Poncho Hunter MD [address] [facility] [address] [id number] [place] [address] [email or web address] Social History Tobacco Use Types Packs/Day Years Used Date Smoking Tobacco: Former Smokeless Tobacco: Former Comments:cigars, never inhal ed Alcohol Use Standard Drinks/Week Comments Yes 0 (1 standard drink = 0.6 oz pur e alcohol) Sex and Gender Information Value Date Recorded Sex Assigned at Male 04/24/2018 1:07 PM EDT Legal Sex Male 11:46 AM EDT Gender Identity Male 04/24/2018 1:07 PM EDT Sexual Orientation Straight 05/27/2020 7: 24 PM EDT documented as of this encounter Plan of Treatment Upcoming Encounters Date Type Department Care Team (Latest Contact Info) Description 12/05/2025 12:30 PM EST Ancillary Procedure [facility] [address] [facility] 3rd Floor, [address] [place] [address] Claudia Eaton, CESAR [address] [facility], [address] [place] [address] [email or web address] documented as of this encounter Visit Diagnoses Not on filedocumented in this encounter Additional Health Concerns Infection Onset Date Last Indicated Resolved Time 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 08/12/2015 08/12/20152020 9:07 AM EDT CoV-Risk 04/14/2023 04/14/2023 04/25/2023 1:21 AM EDT documented as of this encounter Care Teams Cut In Worker Relationship Specialty Start Date End Date Gracy Henry NP [address] [place] [phone] PCP - General 01/04/19 05/04/21 Pj Doe PA [address] [place] [phone] [email or web address] PCP - General Unknown Provider Specialty 05/05/21 Li Briscoe MD [address] [place] [address] [email or web address] Bead Maker Cardiology 01/01/21 Tarik Horne MD [address] [place] [address] [place] [address] Gastroenterology 02/12/21 documented as of this encounter Additional Source Comments The information contained in this document represents components of the legal health record. It is not the complete legal health record.[facility]
--- OUTSIDE RECORDS SUMMARY | 2025-07-10 13:26 | XMS_ITS | Encounter Summary ---
Author Organization [facility] Address [address] [place] [address] Phone Care Team Providers Care Wooden Frame Builder Name Role Phone Li Briscoe MD Unavailable [phone] Tarik Horne MD Unavailable [phone] Pj Doe Primary Care Provider [phone] Encounter Details Date Type Department Care Team (Late st Contact Info) Description 09/05/2021 Procedure Pass [facility] - RF[facility]IR [address] [facility], 2nd [place] [address] Social History Tobacco Use Types Packs/Day Years Used Date Smoking Tobacco: Former Cigars Smokeless Tobacco: Former Comments:1-2 cigars a week, quit 15 years. Alcohol Use Standard Drinks/Week Comments Yes 0 (1 standard drink = 0.6 oz pur e alcohol) social Sex and Gender Information Value Date Recorded Sex Assigned at Male 04/24/2018 1:07 PM EDT Legal Sex Male 11:46 AM EDT Gender Identity Male 04/24/2018 1:07 PM EDT Sexual Orientation Straight 05/27/2020 7: 24 PM EDT documented as of this encounter Plan of Treatment Upcoming Encounters Date Type Department Care Team (Latest Contact Info) Description 12/05/2025 12:30 PM EST Ancillary Procedure [facility] [address] [facility] 3rd Floor, [address] [place] [address] Claudia Eaton DNP 22 [facility], [address] [place] [address] [email or web address] documented as of this encounter Visit Diagnoses Not on filedocumented in this encounter Additional Health Concerns Infection Onset Date Last Indicated Resolved Time CoV-Risk 04/14/2023 04/14/2023 04/25/2023 1:21 AM EDT documented as of this encounter Care Teams Wooden Frame Builder Relationship Specialty Start Date End Date Pj Doe PA [address] [place] [phone] [email or web address] PCP - General Unknown Provider Specialty 05/05/21 Li Briscoe MD [address] [address] [email or web address] Watch Assembly Cardiology 01/01/21 Tarik Horne MD [address] [place] [address] [place] [address] Gastroenterology 02/12/21 documented as of this encounter Additional Source Comments The information contained in this document represents components of the legal health record. It is not the complete legal health record.[facility]
--- OUTSIDE RECORDS SUMMARY | 2025-07-10 13:26 | XMS_ITS | Encounter Summary ---
Author Organization [facility] Address [address] [place] [address] Phone Care Team Providers Care Detective Investigator Name Role Phone Henry, Gracy PEREZ Primary Care Provider Li Briscoe MD Unavailable [phone] Robert LeeTarik williamson MD Unavailable Pj Doe Primary Care Provider [phone] Encounter Details Date Type Department Care Team (Late st Contact Info) Description 11/06/2020 Telephone [facility] [address] [place] [address] 3rd Floor, [address] [place] [address] Li Briscoe MD [address] [address] [email or web address] Social History Tobacco Use Types Packs/Day Years Used Date Smoking Tobacco: Former Smokeless Tobacco: Former Comments:cigars, never inhal ed Alcohol Use Standard Drinks/Week Comments Never 0 (1 standard drink = 0.6 oz pur e alcohol) rare Sex and Gender Information Value Date Recorded Sex Assigned at Male 04/24/2018 1:07 PM EDT Legal Sex Male 11:46 AM EDT Gender Identity Male 04/24/2018 1:07 PM EDT Sexual Orientation Straight 05/27/2020 7: 24 PM EDT documented as of this encounter Plan of Treatment Upcoming Encounters Date Type Department Care Team (Latest Contact Info) Description 12/05/2025 12:30 PM EST Ancillary Procedure [facility] 22 [facility] 3rd Floor, [address] [place] [address] Claudia Eaton, CESAR 22 [facility], [address] [place] [address] [email or web address] documented as of this encounter Visit Diagnoses Not on filedocumented in this encounter Additional Health Concerns Infection Onset Date Last Indicated Resolved Time 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 08/12/2015 08/12/20152020 9:07 AM EDT CoV-Risk 04/14/2023 04/14/2023 04/25/2023 1:21 AM EDT documented as of this encounter Care Teams Detective Investigator Relationship Specialty Start Date End Date Gracy Henry NP [address] [place] [address] PCP - General 01/04/19 05/04/21 Pj Doe PA [address] [place] [phone] [email or web address] PCP - General Unknown Provider Specialty 05/05/21 Li Briscoe MD [address] [place] [address] [email or web address] Tank Tester Cardiology 01/01/21 Tarik Horne MD [address] [place] [address] [place] [address] Gastroenterology 02/12/21 documented as of this encounter Additional Source Comments The information contained in this document represents components of the legal health record. It is not the complete legal health record.[facility]
--- OUTSIDE RECORDS SUMMARY | 2025-07-10 13:26 | XMS_ITS | Encounter Summary ---
Author Organization [facility] Address [address] [place] [address] Phone Care Team Providers Care Rag Cutting Machine Tender Name Role Phone HenryGracy logan AAN Primary Care Provider [phone] Li Briscoe MD Unavailable [phone] Tarik Horne MD Unavailable Pj Doe Primary Care Provider [phone] Encounter Details Date Type Department Care Team (Late st Contact Info) Description 01/22/2021 Procedure Pass [facility] Cardiovascular And Interventional Radiology [address] [place] [address] Social History Tobacco Use Types Packs/Day Years [...] Date of Assessment Author No Risk Indicated 01/22/2021 8:00 AM EDT Trixie Bloom RN * [place] Suicide Severity Rating Scale (Screener/Recent Self-Report) Question Answer Date of Assessment Author 2. Non-Specific Active Suici mono Thoughts (Past 1 Month) No 01/22/2021 8:00 AM EDT Keri Berrios RN documented as of this encounter Plan of Treatment Upcoming Encounters Date Type Department Care Team (Latest Contact Info) Description 12/05/2025 12:30 PM EST Ancillary Procedure [facility] 22 [facility] 3rd Floor, [address] [place] [address] Claudia Eaton, CESAR [address] 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 08/12/2015 08/12/20152020 9:07 AM EDT CoV-Risk 04/14/2023 04/14/2023 04/25/2023 1:21 AM EDT documented as of this encounter Care Teams Rag Cutting Machine Tender Relationship Specialty Start Date End Date Gracy Henry NP [address] [place] [phone] PCP - General 01/04/19 05/04/21 Pj Doe PA [address] [place] [phone] [email or web address] PCP - General Unknown Provider Specialty 05/05/21 Li Briscoe MD [address] [place] [address] [email or web address] Artist Scientific Cardiology 01/01/21 Tarik Horne MD [address] [place] [address] [place] [address] Gastroenterology 02/12/21 documented as of this encounter Additional Source Comments The information contained in this document represents components of the legal health record. It is not the complete legal health record.[facility]
--- OUTSIDE RECORDS SUMMARY | 2025-07-10 13:26 | XMS_ITS | Encounter Summary ---
Author Organization [facility] Address [address] [place] [address] Phone Care Team Providers Care Metal Framer Name Role Phone HenryGracy logan ANA Primary Care Provider [phone] Li Briscoe MD Unavailable [phone] Tarik Horne MD Unavailable [phone] Pj Doe Primary Care Provider [phone] Encounter Details Date Type Department Care Team (Late st Contact Info) Description 02/04/2021 Procedure Pass [facility] Emergency Imaging, Main [address], Floor 1 [place] [address] Social History Tobacco Use Types Packs/Day Years [...] Description 12/05/2025 12:30 PM EST Ancillary Procedure [facility] 22 [facility] 3rd Floor, [address] [place] [address] Claudia Eaton, CESAR [address] [facility], [address] [place] [address] [email or web address] documented as of this encounter Visit Diagnoses Not on filedocumented in this encounter Additional Health Concerns Infection Onset Date Last Indicated Resolved Time 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 08/12/2015 08/12/20152020 9:07 AM EDT CoV-Risk 04/14/2023 04/14/2023 04/25/2023 1:21 AM EDT documented as of this encounter Care Teams Metal Framer Relationship Specialty Start Date End Date Gracy Henry NP [address] [place] [address] PCP - General 01/04/19 05/04/21 Pj Doe PA [address] [place] [phone] [email or web address] PCP - General Unknown Provider Specialty 05/05/21 Li Briscoe MD [address] [place] [address] [email or web address] Laundry Route Driver Cardiology 01/01/21 Tarik Horne MD [address] [place] [address] [place] [address] Gastroenterology 02/12/21 documented as of this encounter Additional Source Comments The information contained in this document represents components of the legal health record. It is not the complete legal health record.[facility]
--- OUTSIDE RECORDS SUMMARY | 2025-07-10 13:26 | XMS_ITS | Encounter Summary ---
Author Organization [facility] Address [address] [place] [address] Phone Care Team Providers Care Electronic Repair Troubleshooter Name Role Phone Li Briscoe MD Unavailable [phone] Tarik Horne MD Unavailable [phone] Pj Doe Primary Care Provider [phone] Encounter Details Date Type Department Care Team (Late st Contact Info) Description 04/14/2023 Procedure Pass [facility], Ct Scan - [address] [address] Social History Tobacco Use Types Packs/Day Years [...] 7:56 PM EDT Sravanthi Fu RN * [place] Suicide Severity Rating Scale (Screener/Recent Self-Report) Question [...] Description 12/05/2025 12:30 PM EST Ancillary Procedure [facility] [address] [place] [address] 3rd Floor, [address] [place] [address] Claudia Eaton, [facility] 22 [facility], [address] [place] [address] [email or web address] documented as of this encounter Visit Diagnoses Not on filedocumented in this encounter Additional Health Concerns Infection Onset Date Last Indicated Resolved Time CoV-Risk 04/14/2023 04/14/2023 04/25/2023 1:21 AM EDT documented as of this encounter Care Teams Electronic Repair Troubleshooter Relationship Specialty Start Date End Date Pj Doe PA [address] [place] [phone] [email or web address] PCP - General Unknown Provider Specialty 05/05/21 Li Briscoe MD [address] [address] [email or web address] Machine Cloth Examiner Cardiology 01/01/21 Tarik Horne MD [address] [place] [address] [place] [address] Gastroenterology 02/12/21 documented as of this encounter Additional Source Comments The information contained in this document represents components of the legal health record. It is not the complete legal health record.[facility]
--- OUTSIDE RECORDS SUMMARY | 2025-07-10 13:26 | XMS_ITS | Encounter Summary ---
Author Organization [facility] Address [address] [place] [address] Phone Care Team Providers Care Charge Hand Name Role Phone Li Briscoe MD Unavailable [phone] Tarik Horne MD Unavailable [phone] Pj Doe Primary Care Provider [phone] Encounter Details Date Type Department Care Team (Late st Contact Info) Description 08/26/2021 Procedure Pass [facility] [address] [place] [phone] Social History Tobacco Use Types Packs/Day Years [...] Description 12/05/2025 12:30 PM EST Ancillary Procedure [facility] [address] [facility] 3rd Floor, [address] [place] [address] Claudia Eaton DNP 22 [facility], [address] [place] [address] [email or web address] documented as of this encounter Visit Diagnoses Not on filedocumented in this encounter Additional Health Concerns Infection Onset Date Last Indicated Resolved Time CoV-Risk 04/14/2023 04/14/2023 04/25/2023 1:21 AM EDT documented as of this encounter Care Teams Charge Hand Relationship Specialty Start Date End Date Pj Doe PA [address] [place] [phone] [email or web address] PCP - General Unknown Provider Specialty 05/05/21 Li Briscoe MD [address] [address] [email or web address] Supervisor Partial Denture Department Cardiology 01/01/21 Tarik Horne MD [address] [place] [address] [place] [address] Gastroenterology 02/12/21 documented as of this encounter Additional Source Comments The information contained in this document represents components of the legal health record. It is not the complete legal health record.[facility]
--- OUTSIDE RECORDS SUMMARY | 2025-07-10 13:26 | XMS_ITS | Clinical Summary ---
Author Organization [facility] Address [address] [place] [address] Phone Care Team Providers Care Machine Farmworker Name Role Phone Li Briscoe MD Unavailable [phone] Tarik Horne MD Unavailable [phone] Pj Doe Primary Care Provider [phone] Allergies Active Allergy Reactions Criticality Noted Date Comments Adhesive Itching 01/03/2019 Cashew Nut Anaphylaxis High 12/25/2020 Diclofenac 06/04/2025 Other Reaction(s): Not available Meloxicam 06/04/2025 Other Reaction(s): Not available Peanut Anaphylaxis High 08/08/2015 Tapentadol 08/10/2023 Other reaction(s): Rash Tree Nut 08/10/2023 Other reaction(s): anaphylaxis Medications latanoprost (XALATAN) 0.005 % ophthalmic solution Place 1 drop into each eye nightly at bedtime. Active albuterol 90 mcg/actuation inhaler Inhale 2 puffs into the lungs every 6 (six) hours as needed for wheezing. Active EPINEPHrine (ADRENALIN) 0.1 mg/mL injection syringe Active multivitamins capsule Take 1 capsule by mouth daily. Active atorvastatin (LIPITOR) 40 MG tablet Take 2 tablets (80 mg total) by mouth nightly at bedtime. 60 tablet 2 1 Active apixaban (ELIQUIS) 5 mg tablet Take 5 mg by mouth 2 (two) times a day. Active ascorbic acid, vitamin C, (VITAMIN C) 250 MG tablet Take 1,000 mg by mouth Every Afternoon. Active digoxin (LANOXIN) 125 mcg tablet Take 125 mcg by mouth every other day. 2 Active Bacillus coagulans-inuli n 1 billion-250 cell-mg Cap Take 250 mg by mouth daily. Active metoprolol succinate (TOPROL-XL) 25 MG 24 hr tablet Take 12.5 mg by mouth 2 (two) times a day. Does not take if diastolic or HR is under 60 Active acetaminophen (TYLENOL) 500 MG tablet Take 500 mg by mouth every 6 (six) hours as needed for pain (specific location in comments). Active Active Problems Problem Noted Date Diagnosed Date Syncope 01/14/2022 Assessment & Plan (01/15/2022 6:09 PM EDT): Patient presented with a suspected episode of syncope likely vasovagal in nature. Significant prodromal symptoms of dizziness. -No complaint of chest pain or overt shortness of breath since admission. -No recurrent syncope. Telemetry reveals sinus tachycardia. Seen by cardiology and syncope appear to be orthostatic. Will monitor orthostatic vital signs -Knee-high compression stockings when standing if positive orthostasis. Nonrheumatic tricuspid valve regurgitation 08/27 Assessment & Plan (09/02/2021 1:16 PM EST): intraop MARKUS pre with severe TR 08/27/21 s/p TV ring ( 30 mmPhysio ring). Intra op MARKUS post: trace TR Follow up 08/27/2021 Assessment & Plan (08/27/2021 12:43 PM EST): After d/c will follow up with primary refrigeration unit repairer, Dr. Luis Felipe Gutierrez 08/24/2021 Assessment & Plan (08/24/2021 11:58 AM EST): H/H to 7.9 from admit of . Slow downtrend. No acute source of bleed identified. Last ferritin 114, iron 56 (fom 35), iron sat 15, TIBC 371, - transfuse with 1 unit of red cells - follow up CBC - Venofer ordered with improvement in iron as above. - Will send haptoglobin Bilateral inguinal hernia 08/20/2021 Assessment & Plan (08/25/2021 2:05 PM EST): Bilateral inguinal hernias. R>>L. Seen by General Surgeon, Dr. Crandall 06/2021. Prohibitive risk for GA at that time and risk for incarceration very low. Increased pain today while attempting to move bowels. Hernias are soft. AVSS US 08/18 and again 08/20 with slight interval increase in size of hematoma. Dr. Hunter updated -Recheck US 08/24 no increase in know hematoma -hold lovenox for now -Trend H/H -Schedule Tylenol for pain -laxatives increased to prevent straining A-fib 08/19/2021 Assessment & Plan (06/04/2025 1:27 PM EDT): He is rate controlled here in the office today metoprolol 12.5 mg twice daily and anticoagulated with Eliquis 5 mg twice daily which she will continue without change. Assessment & Plan (01/15/2022 6:13 PM EDT): Patient has a history of paroxysmal A. fib currently on metoprolol. Had a visit with Dr. Briscoe on Tuesday and recommended increasing metoprolol to 25 mg twice daily. Patient's heart rate continues to be 100-130s and would alternate between sinus tachycardia and atrial fibrillation. Discussed with cardiology, holding off increasing rate control at this time. Will focus on further diuresis, as his tachycardia might be compensatory for mild heart failure. Patient's beta-juana was held after recent valvular surgery and restarted by his outpatient refrigeration unit repairer. -Continue metoprolol succinate 25 mg twice daily -Continue Eliquis 5 mg twice daily Assessment & Plan (09/07/2021 12:07 PM EST): Afib on apixaban pre op. 08/27/21: s/p MAZE procedure, LAAA not performed. - afib - amio bolus with drip on POD 1. mobitz 1 on POD 2. Amio stopped. JR 50. - EP consulted 08/30 for slow AF, SSS- question of PPM need. TTE done to evaluate if CHOKER SETTER needed, EF 44%. EP rec: Post-op sinus node dysfunction and 1st degree AV block, currently sinus rhythm at 80bpm - With time his sinus node has recovered and appears to respond appropriately to pain and hypotension. - see note dated 09/03/21 ( Dr. Olvin Gallegos) - not on BB as his BP has been labile requiring midodrine, then prn midodrine. Over the w/e the midrodrine has been weaned, last dose yesterday AM, 5 mg. Would not start BB at this time but continue to prioritize diuretics and BB social media marketer be added as o/p. -pt is on AC for MVR, LEE thrombus that was seen on post op echo. Assessment & Plan (08/24/2021 11:54 AM EST): Chronic AF on apixaban at home. CHADS-VASc = 4 (4.8% risk of stroke per year) Congestive heart failure (1 point) Hypertension (1 point) Vascular disease (1 point) Age 65-74 (1 point) -No NOAC's for 7 days pre-op. Holding Lovenox as above. - given increased creatinine and Cr Cl 36, Lovenox anti-XA checked 08/19 -->0.97 -- ok to continue current lovenox dose - recheck Anti-Xa if creatinine continues to rise Severe mitral regurgitation 08/14/2021 Assessment & Plan (09/07/2021 12:25 PM EST): Severe, symptomatic secondary MR despite GDMT. - Mitral valve transcatheter [id number] repair (LOLLY), Mitraclip procedure on 08/14 unsuccessful as his anatomy was not favorable- procedure was aborted. R and L sided filling pressure elevated on RHC, LA 31 (V-waves 56) after intraprocedural volume. RA 24 (mean) with ventricularization of pressure consistent with severe/torrential TR. RV 63/24 - He was admitted for diuresis, re- consult by cardiac surgery and remained in house being diuresed until surgery on 08/27/21. Pre op wt 158# on 08/26/21. 08/27/21: revision sternotomy, MVR (33 SJ Biocor porcine tissue), TV ring (30 mm Physio ring), L MAZE, repair of ASD, CABG x 1 ( SVG to OM2), endo vein harvest. No LAAA performed. Dr. Pepe. - Intraop MARKUS pre : LV EF systolic fx normal. RV cavity is dilated and systolic fx at lower limits of normal. Bioprosthetic valve in aortic positon with peak/ mean AV gradient of 24/11 mmHg- gradients are normal for this valve. No PVL. Severe MR and TR. Intraop MARKUS post LV systolic fx moderately impaired. RV systolic fx moderately decreased. No evidence of ASD or intraatrial shunt by doppler. Bioprosthetic valve in aortic position, leaflets thin/ normally mobile. MV: size 33 bioprosthetic valve, SJ Biocor porcine tissue valve in mitral position. Prosthetic valve well seated. Leaflets thin and move normally. Tace MR.Peak gradient 9 mmHg and mean 3 mmHg. TV s/p repair. Partial annular ring 30 mm Physio 1 ring. Trace TR present. Trace GA. L pleural effusion. - in ICU he was on Amio 1 ( AF) , Epi, Veletri, Lev, Vaso and required multiple liters of fluid resuscitation. midrodrine started. - rhythm post op: Afib slow, JR at 50, Mobitz I. See afib problem -being diuresed with bumex, increased dose over the w/e. TBB neg 2.8 L Wt 164# today, down 4# from yesterday and 13# since 09/04. Pre op 158# on 08/26/21. LE continue with good amount of edema - > compression stockings, elevate legs when in a chair. Thoracentesis for 650 cc yesterday from L [address] space. CXR today:decreased L perihilar hazy opacity compatible with improved aspiration or PNA. Chest CT post op- LEE thrombus. Noted wire from RVOT to PA appears chronic. - see Dr. Hunter's note from 09/04 for full details. - anticoagulation for MVR per protocol (and now LEE thrombus seen on chest CT), coumadin with INR goal initially of of 2-3. POD 1 with pink urine. On 09/02 his Hgb 6.7/ HCT 21- 2 units pRBC with good response. Abd CT finding of : acute hematomas involving inferior rectus sheath and superior left mediastinum. Rectus sheath hematoma extends from the umbilicus to the pubic symphysis. No active extravasation visualized. INR goal lowered to 1.5-2 and following H&H closely- Hgb 8.8 today with HCT 27 - > slow downtrend over the w/e. INR today 1.3. - thrombocytopenia with plt eron 56 on 08/29 - > now > 100 - renal fx stable. - replace electrolytes per protocol scale. K is low today - epicardial wires removed 09/03 - Note, 08/15 RUQ US showed cholelithiasis, polypoid lesion near gall bladder neck ( recommend MRCP). - echo 09/03: MV: peak/ mean MVG 12/4 mmHg. Valve well seated. HR 68. Mild MR. EF 44%. Assessment & Plan (08/24/2021 11:51 AM EST): Severe, secondary MR with an LVEF of 50% and an LVESD <=70, and he remained symptomatic with NYHA II symptoms despite GDMT. Moderate-severe TR that also likely secondary. Presented to Heart team with plan for Mitraclip 08/14 but anatomy was not favorable so aborted now awaiting Surgical intervention on 08/26. Continuing to diurese with Bumex and await OR. - CABG x 1 (OM), MVR, TVR, MAZE, LAAA, +/- iatrogenic ASD closure.. OR planned for 08/26. - Cleared for surgery by Dental Team - All preop lab testing done (CXR, u/a and urine cx) - COVID swab today 08/24 for preop- results pending. - Discontinued Lovenox (indication AF) on Eliqius at home in anticipation of OR date Cirrhosis 08/14/2021 Assessment & Plan (08/24/2021 11:51 AM EST): Diagnosed with cirrhosis at OSH. RUQUS performed (uploaded in Epic Media tab). Given possible plan for CT surgery, need to better classify his cirrhosis. - Consulted GI, appreciate recommendations -- have signed off - Per GI his Child Purgh score is 6 and he has a very low MELD, lower mortality group given these scores. - trend LFTs -stable - noted to be thrombocytopenic on admission (PLTs 94k, 77k) which is lower than noted during prior admission admission in May (PLT 100k [id number]). PLT improved 141 today Structural heart disease 05/12/2021 Assessment & Plan (05/19/2021 9:53 AM EDT): Dr. Hunter consulted for consideration of transcatheter treatment for mixed valve (MR and TR) disease. Subsequently referred to Dr. Charlene Tilley for HF mgt. Referred by Dr. Li Briscoe. Patient lives in [place], most of care has been in [facility], where he previously lived. He has severe, symptomatic mitral regurgitation and tricuspid regurgitation. NYHA class III acute HFpEF. He has previously been evaluated as an outpatient for LOLLY of mitral valve and may also benefit from LOLLY of the TV. His HF has been optimized per Dr. Tilley and HF service and he may be ready for dch soon. His case will be formally discussed in a multidisciplinary heart team meeting on Tuesday05/22/21 with recommendations to follow. We anticipate offering mitral clip (LOLLY) procedure first then potentially a tricuspid valve intervention with study device to follow pending clinical course after mitral valve intervention. He is likely not a candidate for APOLLO TRIAL for TMVR because of severe TR. Ok to discharge home once deemed appropriate by HF service and primary team. Structural Interventional Cardiology will contact patient after discharge with plan. - PLEASE check NTproBNP before discharge - Needs outpt dental clearance Completed work up: - CT surgical consultation Dr. Pepe - RHC, coronary angiography - TTE - MARKUS - Carotid DUS - PFTs Acute heart failure with pre served ejection fraction (HFpEF) 05/10/2021 CAD in craig artery 01/22/2021 Assessment & Plan (06/04/2025 1:27 PM EDT): Continues to be asymptomatic we will continue to optimize cardiac risk factors. He is on apixaban 5 mg twice daily, atorvastatin 80 mg daily, Toprol 12.5 mg twice daily which she will continue without change. He is encouraged to her clinically low- sodium and exercise. SBP goal less than 130/80. LDL goal less than 55 mg. Assessment & Plan (08/24/2021 11:53 AM EST): CABG (LAZARO-D1, occluded SVG-OM1) in 2014. Recent cath 01/22/21: Coronary angiogram Left main mild diffuse disease LAD mid 20% D1 looks patent with competitive flow from the LAZARO. Circumflex has ostial and proximal 70%. RCA proximal 35% mid 30% this is a dominant vessel. Grafts: LAZARO to D1 is patent but most of the flow appears antegrade through the LAD as I do not see real significant stenosis. Vein graft to OM1 is occluded at the ostium. There is antegrade flow through the circumflex to OM1. Plan: - continue statin, BB - not on aspirin at home. Holding off on starting ASA given early cirrhosis and Plt count borderline 100. - Eliquis (afib) on hold, holding Lovenox bridge in anticipation of OR 08/26. Assessment & Plan (09/07/2021 12:08 PM EST): CABG (LAZARO-D1, occluded SVG-OM1) in 2014. 01/22/21 Coronary angiogram: Left main mild diffuse disease. LAD mid 20% D1 looks patent with competitive flow from the LAZARO. Circumflex has ostial and proximal 70%. RCA proximal 35% mid 30% this is a dominant vessel. Grafts: LAZARO to D1 is patent but most of the flow appears antegrade through the LAD, no real significant stenosis. Vein graft to OM1 is occluded at the ostium. There is antegrade flow through the circumflex to OM1. 08/27/21: s/p CABG x 1 (SVG to OM1). intraop echo post- see in MR problem. - On ASA and statin, lipitor 80 mg/day (was on 40 mg/day pre op). - BB not yet started - see AFib problem for details. - See MR problem for additional details. Dyspnea 10/08/2020 Assessment & Plan (01/15/2022 6:12 PM EDT): Patient has had decrease in his dyspnea since admission question if some element of volume overload playing a role. No evidence of pulmonary infection on chest x-ray. -May need outpatient pulmonology evaluation if dyspnea persists once euvolemic. -Continue heart failure management as above. Assessment & Plan (10/08/2020 3:50 PM EST): It is not clear to me whether his atrial fibrillation is the cause of his dyspnea or it is unrelated. He is scheduled for an echocardiogram next month and will also get a nuclear stress test to see if we can rule out ischemia as well. For now we will also stop his amiodarone to see if this is playing a role with his dyspnea as well Acute on chronic diastolic heart failure 017 Assessment & Plan (06/04/2025 1:26 PM EDT): He appears euvolemic on exam today. He was encouraged follow low-sodium diet and to weigh himself daily looking for weight gain 3 pounds in 2 days or 5 pounds in a week and coming off associated with some shortness of breath. Assessment & Plan (01/15/2022 6:11 PM EDT): Patient thought to have acute diastolic heart failure given patient's progressive shortness of breath, elevated JVD, lower extremity edema, and significant elevated proBNP of 12,554 concerning for acute on chronic right heart failure. Home regimen Bumex 1 mg daily. Additionally, according to postoperative notes his previous weight was 155, currently at 180 pounds. Patient declined IV diuresis on admission now on Bumex 1 mg twice daily. -Continue diuresis per cardiology -Repeat echo pending. -Daily weights and strict ins and outs -Cardiac diet. Assessment & Plan (11/13/2020 12:24 PM EST): He has severe possibly functional MR. Will have to assess his volume status, will be seeing him in person on 11/21 and if he is euvolemic and still has severe MR and pulmonary hypertension of 50-55, and EF 50, would discuss MARKUS to assess extent of MR and see if he is a candidate for mitral valve surgery Assessment & Plan (06/06/2020 4:44 PM EDT): Patient continues to endorse shortness of breath. However, at this time I believe his shortness of breath is most likely related to his atrial fibrillation. He was endorsing bilateral lower extremity edema at recent visit to the ED and he has been taking 2 mg of Bumex since discharge. There is trace bilateral lower extremity edema at this point. We are going to continue Bumex at 1 mg daily and can further titrate down if needed. Patient is in agreement. Assessment & Plan (05/22/2020 5:50 PM EDT): Patient has been endorsing shortness of breath for the past 3 weeks, however, he is euvolemic on exam today and denies PND or orthopnea. I believe his shortness of breath to be related to his new onset A. fib. I am not going to adjust his Bumex at this time. We will reevaluate his symptoms at his one-month follow-up. History of aortic valve repl acement with bioprosthetic valve 10/04/2017 Overview (08/17/2018): 2014 at time of CABG with LAZARO to D1 and SVG to OM1 Assessment & Plan (06/04/2025 1:26 PM EDT): The gradient across the valve looks a little higher than it did at his previous echocardiogram that was done in 2021. We will repeat an echocardiogram in 6 months. He is asymptomatic at this time. Assessment & Plan (09/03/2021 3:43 PM EST): H/o AVR in 2014 ( 23 mm tissue valve) MARKUS 05/18/21 LV systolic fxn mod impaired AV w bioprosthetic valve, no AI Severe MR eccentric from central coaptation point, though to be functional; PISA 1cm, VC 0.6cm, ERO 0.58, Rvol 65mL Severe TR, RVSP 44 TTE 05/14/21 LVEF 45%, RV dilated, decreased systolic fxn, bioAVR (peak 21, mean 17), severe MR, severe TR, RVSP 66 - Intraop MARKUS pre : LV EF systolic fx normal. RV cavity is dilated and systolic fx at lower limits of normal. Bioprosthetic valve in aortic position with peak/ mean AV gradient of 24/11 mmHg- gradients are normal for this valve. No PVL. Intraop MARKUS post - Bioprosthetic valve in aortic position, leaflets thin/ normally mobile. - echo 09/02: AV: bioprosthetic valve with peak/ mean AVG 37/18 mmHg. Valve well seated, no PVL. Trace AI. Assessment & Plan (06/06/2020 4:45 PM EDT): Patient had an aortic valve replacement at the time of his CABG in 2014. We will monitor with annual echoes which will be due this August. Assessment & Plan (05/22/2020 5:57 PM EDT): Patient had an aortic valve replacement at this time of his CABG in 2014. He will be monitored with annual echocardiogram which we will obtain this fall. History of coronary artery bypass graft 10/04/20 Assessment & Plan (01/15/2022 6:11 PM EDT): Stable no chest pain. No evidence of ACS EKG showed new T wave changes over the lateral leads. Troponins remain flat at 51. Patient has significant coronary artery disease with CABG in 2014 along with extensive cardiac surgery in August 2021 with mitral valve replacement, tricuspid valve annuloplasty, left maze, repair of ASD, and CABG x1 by Dr. Pepe. -Continue statin, beta-juana -Follow results of echocardiogram with cardiology. Assessment & Plan (11/13/2020 12:26 PM EST): He does have a small area of moderate ischemia at the apex. I discussed this is likely suggest small area that it would not be able to be revascularized and this is not an uncommon finding for people who have had a CABG. We will increase the metoprolol as above to see if this improves his symptoms in case ischemia is related to why he is dyspneic. If he does in fact need a mitral valve surgery, we will consider a cath at that time. I discussed with him that it is reasonable to get a second opinion as he is choosing to with [facility] to see if there is any other thoughts Assessment & Plan (06/06/2020 4:46 PM EDT): Patient denies any chest pain, pressure or discomfort at this time. His baby aspirin was stopped at the time that Eliquis was initiated. Assessment & Plan (05/22/2020 5:55 PM EDT): Patient has had a CABG and aortic valve replacement in 2014. He denies any chest pain, pressure or discomfort or any symptoms concerning for angina at this time. Because we are starting Eliquis for his atrial fibrillation, I have told the patient that it is acceptable to stop taking his baby aspirin. We will continue atorvastatin. Resolved Problems Problem Noted Date Diagnosed Date Resolved Date Hypertension 08/06/2015 08/17/2021 Overview (09/23/2015): Hypertensive disorder Assessment & Plan (08/17/2021 3:11 PM EDT): Home regimen includes Metoprolol 25, Losartan 12.5mg QD, spironolactone 50mg QD and bumex 2mg daily. His daughter reports that his BP typically runs low, 90s-100s. On admission, he is in 90s-100s. Plan: - Continue home regimen. - Continue diuresis with IV bumex 2mg BID - will need to hold ARB for 5-7 days prior to any CT surgical procedure. Assessment & Plan (09/01/2021 5:22 PM EST): At home on toprol 25 mg/day, aldactone 25 mg/day, cozaar 12.5 mg/day and bumex 2 mg/day. Remains markedly fluid overloaded, consider IVP if slow to diuresis given R>L sided HF (decreased GI absorption). Assessment & Plan (06/06/2020 4:57 PM EDT): Continue losartan 25 mg daily. Metoprolol was previously increased from 50 mg to 100 mg, however, patient had continued on 50 mg. I have confirmed with both the patient and his daughter today that he should continue 100 mg ongoing. SBP goal <130. Assessment & Plan (05/22/2020 5:47 PM EDT): Blood pressure in the office today 142/78. Metoprolol is being increased. Losartan 25 mg has also been added by his PCP recently for elevated BP readings, so we will reevaluate at his next visit to ensure his BP is at goal. Encounters Date Type Department Care Team Description 06/04/2025 12:30 PM EDT Office Visit [facility] [address], [address] [place] [address] Claudia Eaton DNP Presence of prosthetic heart valve (Primary Dx); Acute on chronic diastolic heart failure; History of aortic valve replacement with bioprosthetic valve; CAD in craig artery 05/01/2025 Orders Only [facility] [address], [address] [place], [place] [id number] ProviderEstpehanie MD 04/10/2025 7:40 AM EDT Office Visit [facility] [address], [address] [place] [address] Armaan Douglas MD Presence of prosthetic heart valve (Primary Dx); Status post tricuspid valve repair from Last 3 Months Immunizations Immunization Administration Dates Next Due COVID-19 (Pre-08/08) Moderna Vaccine, mRNA, PF 10/06/2021,01/14/2021,12/17/2020 Influenza High-Dose Quadriva lent Preservative Free IM 09/08/2021(Deferred: No Longer Needed - pt already received this year.),06/30/2020 Influenza High-Dose Trivalen t Preservative Free IM 07/02/2019,07/03/2018,07/01/2017,07/15,06/26/2015 Influenza, Unspecified Formulation 09/10(Deferred: Other - 00),08/06/2015(Deferred: Other - 00) Pneumococcal conjugate PCV13 08/18/2016 Pneumococcal polysaccharide PPSV23 08/12/2015, Td (adult),2 Lf Tetanus Toxo id, PF, Adsorbed 05/27/2017 Tdap 08/02/2012 Zoster live 10/17/2013 Family History Relation Status Comments Father Mother Social History Tobacco Use Types Packs/Day Years [...] Orientation Straight 05/27/2020 7: 24 PM EDT Last Filed Vital Signs Vital Sign Reading Time Taken Comments Blood Pressure 118/60 06/04/2025 12:38 PM EDT Pulse 74 06/04/2025 12:38 PM EDT Temperature 36.8 C (98.2 F) 04/15/2023 12:38 AM EDT Respiratory Rate 22 04/14/2023 7:48 PM EDT Oxygen Saturation 97% 06/04/2025 12:38 PM EDT Inhaled Oxygen Concentration 30% 08/27/2021 8 :00 PM EST Weight 61.7 kg (136 lb) 06/04/2025 12:38 PM EDT Height 170.2 cm (5' 7.01 ) 06/04/2025 12:38 PM E DT Body Mass Index 21.3 06/04/2025 12:38 PM EDT Plan of Treatment Upcoming Encounters Date Type Department Care Team (Latest Contact Info) Description 12/05/2025 12:30 PM EST Ancillary Procedure [facility] [address], [address] [place] [address] Claudia Eaton, CESAR [address] [facility], [address] [place] [address] [email or web address] Health Maintenance Due Date Last Done Comments DEPRESSION SCREENING 1962 HEPATITIS A VACCINES (1 of 2 - Risk 2-dose series) 1969 COLOGUARD 1995 FIT TEST 1995 FOBT 1995 SIGMOIDOSCOPY 1995 VIRTUAL COLONOSCOPY 1995 ZOSTER VACCINES (2 of 3) 12/12/2013 10/17/2013 LIPID PANEL 05/18/2022 05/18/2021, 08/08/2015 CREATININE LEVEL 04/14/2024 04/14/2023, , 04/05/2023, Additional history exists POTASSIUM LEVEL 04/14/2024 04/14/2023, 03/18, 04/05/2023, Additional history exists COVID-19 VACCINE ( season) 2024 10/06/2021, 01/14/2021, 12/17/2020, Additional history exists RSV VACCINE (1 - 1-dose 75+ series) 2025 INFLUENZA VACCINE (#1) 2025 , 06/30/2020, 07/02/2019, Additional history exists SMOKING Hx and SMOKELESS TOBACCO SCREENING 06/04/2026 06/04/2025 Adult Td,Tdap Booster 05/27/2027 05/27/2017, 012 COLONOSCOPY 01/04/2029 01/04/2019 COLORECTAL CANCER SCREENING 01/04/2029 PNEUMOCOCCAL VACCINES (50+ years) Completed 08/18/2016, 08/12/2015, 10/23/2014 HEPATITIS C SCREENING Completed 05/11/2021 HIB VACCINES Aged Out No longer eligi ble based on patient's age to complete this topic MENINGOCOCCAL VACCINES (ACWY) Aged Out No longer eligible based on patient's age to complete this topic MENINGOCOCCAL VACCINES (B) Aged Out N o longer eligible based on patient's age to complete this topic Medical Devices Implanted Type Area Drawer In Dobby Loom Device Identifier Shelf Expiration Date Model / Serial / Lot Ring Annuloplasty 30mm Tricuspid Luisa Oliveros [employer] - [id number] Implanted:Qty: 1 on 08/26/2021 by Ginna Pepe MD at [facility] [employer] 06/16/2026 [id number] / [id number] / Bovine Aortic Valve Knees Valve Stent 33mm Mitral Bioprosthesis Tissue Flexfit Biocor - [id number] Implanted:Qty: 1 on 08/26/2021 by Ginna Pepe MD at [facility] [employer] 09/27/2023 [id number] / [id number] / Procedures Procedure Name Priority Date/Time Associated Diagnosis Comments OUTSIDE ECHO Routine 04/25/2025 4:25 PM EDT BASIC METABOLIC PANEL STAT 04/14/2023 9:26 PM EDT LIPID PANEL Routine 05/18/2021 5:30 AM EDT HEPATITIS C ANTIBODY, QUALITATIVE Routine 05/11/2021 5:42 AM EDT ENDOSCOPY, COLON 01/04/2019 7:28 AM EDT from Last 3 Months or Most Recently Relevant to Health Maintenance Results * Outside Echo Report Only (04/25/2025 4:25 PM EDT) us Historical Provider MD MARTINEZ ECHO ORDERABLES Final Result * Basic metabolic panel (04/14/2023 9:26 PM EDT) SODIUM 139 133 - 146 mmol/L [facility] CHLORIDE 99 96 - 108 mmol/L [facility] POTASSIUM 3.9 3.3 - 5.1 mmol/L [facility] CO2 25 21 - 35 mmol/L [facility] BUN 17 6 - 19 mg/dL [facility] CREATININE 0.90 0.5 - 1.5 mg/dL [facility] GLUCOSE 75 70 - 99 mg/dL [facility] CALCIUM 10.1 8.4 - 10.3 mg/dL [facility] EGFR 90 >59 mL/min/1.7 3m2 [facility] Comment:Estimated glomerular filtration rate calculated using the CKD-EPI refit equation. ANION GAP 19 10 - 20 mmol/L [facility] Blood 04/14/2023 9:26 PM EDT 04/14/2023 9:30 PM EDT us Jake Wade MD LAB BLOOD ORDERAB LES Final Result Performing Organization Address City/[facility]/ZIP Co de Phone Number [address] [address] * (ABNORMAL) Lipid panel (05/18/2021 5:30 AM EDT) HDL 48 35 - 100 mg/dL [facility] CHOLESTEROL 98 <200 mg/dL [facility] TRIGLYCERIDES 44 40 - 150 mg/dL [facility] LDL 41(L) 50 - 129 mg/dL [facility] CARDIAC RISK RATIO 2.0 0.0 - 5.0 [facility] NON-HDL CHOLESTEROL 50 mg/dL [facility] Comment:NCEP ATP III guideli hernán suggest a non-HDL cholesterol goal 30 mg/dl higher than the patient-specific LDL goal. Blood 05/18/2021 5:30 AM EDT 05/18/2021 6:15 AM EDT us Kelly Reynoso CNP LAB BLOOD ORDERABLES Final R esult [address] [address] * Hepatitis C antibody, qualitative (05/11/2021 5:42 AM EDT) HCV ANTIBODY Negative Negative [facility] Comment:Antibodies to HCV no t detected. Does not exclude the possibility of exposure to HCV. Blood 05/11/2021 5:42 AM EDT 05/11/2021 6:21 AM EDT us Ranjith Kruse MD, PhD LAB BLOOD ORDERABLES Fin al Result [facility] [address] [place] [address] * ENDOSCOPY, COLON (01/04/2019 7:28 AM EDT) Narrative Transcriptions Chava Freed MD - 01/04/2019 7:28 AM EDT Patient Name: Sadi Good Attending MD:: CHAVA FREED MD Procedure Date: 01/04/2019 7:28 AM Date of : 1950 Age: 68 Admit Type: Outpatient Gender: Male Room: [place] [address] Referring MD: Gracy Henry Exam Type: Colonoscopy Indications: Screening for colorectal malignant neoplasm, This isthe patient's first colonoscopy Medications: Propofol per Anesthesia Procedure: Informed consent was obtained from the patient after discussion of the indications, limitations,alternatives, benefits, and risks of the procedure. Risksspecifically discussed include but are not limited to medication reactions, missed lesions, bleeding, perforation, orthe need for emergent surgery. Throughout the procedure, the patient's blood pressure, pulse, end-tidal CO2, and oxygen saturations were monitored continuously. The Olympus adult variable colonoscope [id number] #2 was introduced through the anus and advanced to theterminal ileum, with identification of the appendiceal orificeand IC valve. The colonoscopy was performed without difficulty. The patient tolerated the procedure well.The quality of the bowel preparation was good. The bowel preparation used was GoLYTELY. Complications: No immediate complications. Estimated blood loss:None. Findings: The perianal and digital rectal examinations werenormal. Pertinent negatives include normal prostate (size,shape, and consistency). The retroflexed view of the distal rectum and analverge was normal and showed no anal or rectalabnormalities. Many small-mouthed diverticula were found in thesigmoid colon. A small polyp was found in the hepatic flexure. Thepolyp was sessile. The polyp was removed with a cold snare. Resection and retrieval were complete. The exam was otherwise without abnormality. The terminal ileum appeared normal. Retroflexion in the right colon was performed. Impression: - The distal rectum and anal verge are normal on retroflexion view. - Mild diverticulosis in the sigmoid colon. - One small polyp at the hepatic flexure, removed witha cold snare. Resected and retrieved. - The examination was otherwise normal. - The examined portion of the ileum was normal. Recommendation: - High fiber diet. - If the pathology report reveals adenomatous tissue,then repeat the colonoscopy for surveillance in 5 years. CHAVA FREED MD 01/04/2019 8:06:31 AM This report has been signed electronically. Number of Addenda: 0 Note Initiated On: 01/04/2019 7:28 AM Procedure Code(s): --- Professional --- 40655, Colonoscopy, flexible; with removal of tumor(s), polyp(s), or other lesion(s) by snare technique --- Technical --- 06649, Colonoscopy, flexible; with removal of tumor(s), polyp(s), or other lesion(s) by snare technique Diagnosis Code(s): --- Professional --- Z12.11, Encounter for screening for malignant neoplasm of colon D12.3, Benign neoplasm of transverse colon (hepatic flexure orsplenic flexure) K57.30, Diverticulosis of large intestine without perforation orabscess without bleeding --- Technical --- Z12.11, Encounter for screening for malignant neoplasm of colon D12.3, Benign neoplasm of transverse colon (hepatic flexure orsplenic flexure) K57.30, Diverticulosis of large intestine without perforation orabscess without bleeding CPT copyright 2016 [employer]. All rights reserved. The codes documented in this report are preliminary and upon professional fee coder reviewmay be revised to meet current compliance requirements. [address] [place] [address] Gracy Henry NP GI PROCEDURE ORDERABLES Final Re sult from Last 3 Months or Most Recently Relevant to Health Maintenance Insurance MEDICARE A [facility] TOTAL CHOICE INDEMNITY MEDICARE A [employer] TOTAL CHOICE INDEMNITY MEDICARE A [facility] TOTAL CHOICE INDEMNITY MEDICARE A [facility] TOTAL CHOICE INDEMNITY MEDICARE A [employer] TOTAL CHOICE INDEMNITY MEDICARE A [employer] TOTAL CHOICE INDEMNITY MEDICARE A Member Subscriber Plan / Payer (Ef fective 2015-Present) Name:Sadi Good Member ID:[id number] Relation to Subscriber:Self Name:Sadi Good Subscriber ID:[id number] Payer ID:[id number] Group ID:Not on file Type:Medicare Address: [employer] [facility] [employer] [employer] 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 Advance Directive - Non Epic LMR 09/10/2015 12:00 AM * Full Code (Latest Code Status on File) Date Activated Date Inactivated Comments 01/14/2022 9:17 PM Question Answer Comments Code Status Confirmed With: Patient Code Status Communicated To: Inpatient Attending * Full Code Date Activated Date Inactivated Comments 08/14/2021 1:42 PM 01/14/2022 9:17 PM Question Answer Comments Code Status Confirmed With: Patient * Full Code Date Activated Date Inactivated Comments 05/14/2021 8:37 PM 08/14/2021 1:42 PM Question Answer Comments Code Status Confirmed With: Patient * Full Code Date Activated Date Inactivated Comments 05/10/2021 2:22 PM 05/14/2021 8:37 PM Question Answer Comments Code Status Confirmed With: Patient * Full Code Date Activated Date Inactivated Comments 01/22/2021 10:34 AM 05/10/2021 2:22 PM Question Answer Comments Code Status Confirmed With: Patient Healthcare Agents on File Name Relationship Healthcare Agent Relationship Communication Betty Wilson Spouse .Primary Health Care Agent (Proxy form on file) [email or web address] Relationship Specialty Start Date End Date Pj Doe PA [address] [place] [phone] [email or web address] PCP - General Unknown Provider Specialty 05/05/21 Li Briscoe MD [address] [address] [email or web address] Cork Insulator Helper Cardiology 01/01/21 Tarik Horne MD [address] [place] [address] [place] [address] Gastroenterology 02/12/21 Additional Source Comments The information contained in this document represents components of the legal health record. It is not the complete legal health record.[facility]
--- OUTSIDE RECORDS SUMMARY | 2025-07-10 13:26 | XMS_ITS | Encounter Summary ---
Author Organization [facility] Address [address] [place] [address] Phone Care Team Providers Care White Metal Corrosion Proofer Name Role Phone HenryGracy logan ANA Primary Care Provider Li Briscoe MD Unavailable Tarik Horne MD Unavailable Pj Doe Primary Care Provider [phone] Encounter Details Date Type Department Care Team (Late st Contact Info) Description 01/04/2019 Procedure Pass [facility] Endoscopy Admitting Dept Virtual Department [address] [place] [address] Social History Tobacco Use Types Packs/Day Years [...] Description 12/05/2025 12:30 PM EST Ancillary Procedure [facility] [address] [facility] 3rd Floor, [address] [place] [address] Claudia Eaton, CESAR [address] [facility], [address] [place] [address] [email or web address] documented as of this encounter Visit Diagnoses Not on filedocumented in this encounter Additional Health Concerns Infection Onset Date Last Indicated Resolved Time 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 08/12/2015 08/12/20152020 9:07 AM EDT CoV-Risk 04/14/2023 04/14/2023 04/25/2023 1:21 AM EDT documented as of this encounter Care Teams White Metal Corrosion Proofer Relationship Specialty Start Date End Date Gracy Henry NP [address] [place] [address] PCP - General 01/04/19 05/04/21 Pj Doe PA [address] [place] [phone] [email or web address] PCP - General Unknown Provider Specialty 05/05/21 Li Briscoe MD [address] [place] [id number] [email or web address] Statistical Clerk Advertising Cardiology 01/01/21 Tarik Horne MD [address] [place] [address] [place] [address] Gastroenterology 02/12/21 documented as of this encounter Additional Source Comments The information contained in this document represents components of the legal health record. It is not the complete legal health record.[facility]
--- OUTSIDE RECORDS SUMMARY | 2025-07-10 13:26 | XMS_ITS | Encounter Summary ---
Author Organization [facility] Address [address] [place] [address] Phone Care Team Providers Care Driver Wheelchair Name Role Phone HenryGracy logan ANA Primary Care Provider [phone] Li Briscoe MD Unavailable [phone] Tarik Horne MD Unavailable [phone] Pj Doe Primary Care Provider [phone] Encounter Details Date Type Department Care Team (Late st Contact Info) Description 12/05/2020 Procedure Pass [facility] Echo Lab [address] [place] [address] Social History Tobacco Use Types Packs/Day Years [...] Description 12/05/2025 12:30 PM EST Ancillary Procedure [facility] [address] [facility] 3rd Floor, [address] [place] [address] Claudia Eaton, CESAR [address] [facility], [address] [place] [address] [email or web address] documented as of this encounter Visit Diagnoses Not on filedocumented in this encounter Additional Health Concerns Infection Onset Date Last Indicated Resolved Time 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 08/12/2015 08/12/20152020 9:07 AM EDT CoV-Risk 04/14/2023 04/14/2023 04/25/2023 1:21 AM EDT documented as of this encounter Care Teams Driver Wheelchair Relationship Specialty Start Date End Date Gracy Henry NP [address] [place] [address] PCP - General 01/04/19 05/04/21 Pj Doe PA [address] [place] [phone] [email or web address] PCP - General Unknown Provider Specialty 05/05/21 Li Briscoe MD [address] [place] [address] [email or web address] Radio Time Salesperson Cardiology 01/01/21 Tarik Horne MD [address] [place] [address] [place] [address] Gastroenterology 02/12/21 documented as of this encounter Additional Source Comments The information contained in this document represents components of the legal health record. It is not the complete legal health record.[facility]
--- OUTSIDE RECORDS SUMMARY | 2025-07-10 13:26 | XMS_ITS | Encounter Summary ---
Author Organization [facility] Address [address] [place] [address] Phone Care Team Providers Care Conservation Science Officer Name Role Phone Li Briscoe MD Unavailable [phone] Tarik Horne MD Unavailable [phone] Pj Doe Primary Care Provider [phone] Encounter Details Date Type Department Care Team (Late st Contact Info) Description 09/07/2021 Procedure Pass [facility], Sav [address] [facility], 2nd Floor, [address] [place] [address] Social History Tobacco Use Types Packs/Day Years [...] Description 12/05/2025 12:30 PM EST Ancillary Procedure [facility] [address] [facility] 3rd Floor, [address] [place] [address] Claudia Eaton DNP 22 [facility], [address] [place] [address] [email or web address] documented as of this encounter Visit Diagnoses Not on filedocumented in this encounter Additional Health Concerns Infection Onset Date Last Indicated Resolved Time CoV-Risk 04/14/2023 04/14/2023 04/25/2023 1:21 AM EDT documented as of this encounter Care Teams Conservation Science Officer Relationship Specialty Start Date End Date Pj Doe PA [address] [place] [phone] [email or web address] PCP - General Unknown Provider Specialty 05/05/21 Li Briscoe MD [address] [address] [email or web address] Hob Machine Operator Cardiology 01/01/21 Tarik Horne MD [address] [place] [address] [place] [address] Gastroenterology 02/12/21 documented as of this encounter Additional Source Comments The information contained in this document represents components of the legal health record. It is not the complete legal health record.[facility]
--- OUTSIDE RECORDS SUMMARY | 2025-07-10 13:26 | XMS_ITS | Encounter Summary ---
Author Organization [facility] Address [address] [place] [address] Phone Care Team Providers Care Software Licensing Analyst Name Role Phone HenryGracy logan ANA Primary Care Provider [phone] Li Briscoe MD Unavailable [phone] Tarik Horne MD Unavailable Pj Doe Primary Care Provider [phone] Encounter Details Date Type Department Care Team (Late st [facility] Info) Description 03/26/2021 Procedure Pass [facility], Ct Scan - [address] [address] Social History Tobacco Use Types Packs/Day Years [...] Description 12/05/2025 12:30 PM EST Ancillary Procedure [facility] [address] [facility] 3rd Floor, [address] [place] [address] Claudia Eaton, CESAR [address] [facility], [address] [place] [address] [email or web address] documented as of this encounter Visit Diagnoses Not on filedocumented in this encounter Additional Health Concerns Infection Onset Date Last Indicated Resolved Time 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 08/12/2015 08/12/20152020 9:07 AM EDT CoV-Risk 04/14/2023 04/14/2023 04/25/2023 1:21 AM EDT documented as of this encounter Care Teams Software Licensing Analyst Relationship Specialty Start Date End Date Gracy Henry NP [address] [place] [phone] PCP - General 01/04/19 05/04/21 Pj Doe PA [address] [place] [phone] [email or web address] PCP - General Unknown Provider Specialty 05/05/21 Li Briscoe MD [address] [place] [address] [email or web address] Fruit Stuffer Cardiology 01/01/21 Tarik Horne MD [address] [place] [address] [place] [address] Gastroenterology 02/12/21 documented as of this encounter Additional Source Comments The information contained in this document represents components of the legal health record. It is not the complete legal health record.[facility]
--- OUTSIDE RECORDS SUMMARY | 2025-07-10 13:26 | XMS_ITS | Encounter Summary ---
Author Organization [facility] Address [address] [place] [address] Phone Care Team Providers Care Restaurant Associate Name Role Phone HenryGracy logan ANA Primary Care Provider [phone] Li Briscoe MD Unavailable [phone] Tarik Horne MD Unavailable [phone] Pj Doe Primary Care Provider [phone] Encounter Details Date Type Department Care Team (Late st Contact Info) Description 02/13/2021 Procedure Pass [facility] Emergency Imaging, Main [address], [address] [place] [address] Social History Tobacco Use Types Packs/Day Years [...] Description 12/05/2025 12:30 PM EST Ancillary Procedure [facility] [address] [facility] 3rd Floor, [address] [place] [address] Claudia Eaton, CESAR [address] [facility], [address] [place] [address] [email or web address] documented as of this encounter Visit Diagnoses Not on filedocumented in this encounter Additional Health Concerns Infection Onset Date Last Indicated Resolved Time 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 08/12/2015 08/12/20152020 9:07 AM EDT CoV-Risk 04/14/2023 04/14/2023 04/25/2023 1:21 AM EDT documented as of this encounter Care Teams Restaurant Associate Relationship Specialty Start Date End Date Gracy Henry NP [address] [place] [address] PCP - General 01/04/19 05/04/21 Pj Doe PA [address] [place] [phone] [email or web address] PCP - General Unknown Provider Specialty 05/05/21 Li Briscoe MD [address] [place] [address] [email or web address] Motocross Racer Cardiology 01/01/21 Tarik Horne MD [address] [place] [address] [place] [address] Gastroenterology 02/12/21 documented as of this encounter Additional Source Comments The information contained in this document represents components of the legal health record. It is not the complete legal health record.[facility]
--- OUTSIDE RECORDS SUMMARY | 2025-07-10 13:26 | XMS_ITS | Encounter Summary ---
Author Organization [facility] Address [address] [place] [address] Phone Care Team Providers Care Chip Crusher Operator Name Role Phone Suzanne Brito MD Primary Care Provid er Unavailable Gracy Henry NP Primary Care Provider [phone] Li Briscoe MD Unavailable [phone] Tarik Horne MD Unavailable [phone] Pj Doe Primary Care Provider [phone] Encounter Details Date Type Department Care Team (Latest Contact Info) Description 09/28/2017 [facility] [address] [place] [address] 3rd Floor, [address] [place] [address] Noah Carter MD [address] [place] [address] [email or web address] Acute on chronic systolic heart failure (Primary Dx) Social History Tobacco Use Types Packs/Day Years Used Date Smoking Tobacco: Never Assessed Sex and Gender Information Value Date Recorded Sex Assigned at Male 04/24/2018 1:07 PM EDT Legal Sex Male 11:46 AM EDT Gender Identity Male 04/24/2018 1:07 PM EDT Sexual Orientation Straight 05/27/2020 7: 24 PM EDT documented as of this encounter Plan of Treatment Upcoming Encounters Date Type Department Care Team (Latest Contact Info) Description 12/05/2025 12:30 PM EST Ancillary Procedure [facility] [address] [facility] 3rd Floor, [address] [place] [address] Claudia Eaton, CESAR 22 [facility], [address] [place] [address] [email or web address] documented as of this encounter Results * TTE COMPREHENSIVE (08/10/2018 9:56 AM EDT) Anatomical Region Laterality Modality Heart Ultrasound us Noah Carter MD CV ECHO ORDERABLES Final Result documented in this encounter Visit Diagnoses Diagnosis Acute on chronic systolic heart failure- Primary documented in this encounter Additional Health Concerns Infection Onset Date Last Indicated Resolved Time 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 08/12/2015 08/12/20152020 9:07 AM EDT CoV-Risk 04/14/2023 04/14/2023 04/25/2023 1:21 AM EDT documented as of this encounter Care Teams Chip Crusher Operator Relationship Specialty Start Date End Date Suzanne Brito MD [address] [place] [phone] PCP - General Internal Medicine 07/30/15 01/03/19 Gracy Henry NP [address] [place] [phone] PCP - General 01/04/19 05/04/21 Pj Doe PA [address] [place] [phone] [email or web address] PCP - General Unknown Provider Specialty 05/05/21 Li Briscoe MD [address] [address] [email or web address] Oral Health Therapist Cardiology 01/01/21 Tarik Horne MD [address] [place] [address] [place] [address] Gastroenterology 02/12/21 documented as of this encounter Additional Source Comments The information contained in this document represents components of the legal health record. It is not the complete legal health record.[facility]
--- OUTSIDE RECORDS SUMMARY | 2025-07-10 13:26 | XMS_ITS | Encounter Summary ---
Author Organization [facility] Address [address] [place] [address] Phone Care Team Providers Care Hosiery Mater Name Role Phone Li Briscoe MD Unavailable [phone] Tarik Horne MD Unavailable [phone] Pj Doe Primary Care Provider [phone] Encounter Details Date Type Department Care Team (Late st Contact Info) Description 08/31/2021 Procedure Pass [facility] [address] [place] [address] Social History Tobacco Use Types Packs/Day Years [...] Description 12/05/2025 12:30 PM EST Ancillary Procedure [facility] [address] [employer] 3rd Floor, [address] [place] [address] Claudia Eaton DNP 22 [facility], [address] [place] [address] [email or web address] documented as of this encounter Visit Diagnoses Not on filedocumented in this encounter Additional Health Concerns Infection Onset Date Last Indicated Resolved Time CoV-Risk 04/14/2023 04/14/2023 04/25/2023 1:21 AM EDT documented as of this encounter Care Teams Hosiery Mater Relationship Specialty Start Date End Date Pj Doe PA [address] [place] [phone] [email or web address] PCP - General Unknown Provider Specialty 05/05/21 Li Briscoe MD [address] [address] [email or web address] Supervisor Properties Cardiology 01/01/21 Tarik Horne MD [address] [place] [address] [place] [address] Gastroenterology 02/12/21 documented as of this encounter Additional Source Comments The information contained in this document represents components of the legal health record. It is not the complete legal health record.[facility]
--- OUTSIDE RECORDS SUMMARY | 2025-07-10 13:26 | XMS_ITS | Encounter Summary ---
Author Organization [facility] Address [address] [place] [address] Phone Care Team Providers Care Guest Services Manager Name Role Phone Li Briscoe MD Unavailable [phone] Tarik Horne MD Unavailable [phone] Pj Doe Primary Care Provider [phone] Encounter Details Date Type Department Care Team (Late st Contact Info) Description 08/26/2021 Procedure Pass [facility] [address] [place] [address] Social History Tobacco Use Types Packs/Day Years [...] Description 12/05/2025 12:30 PM EST Ancillary Procedure [facility] 22 [facility] 3rd Floor, [address] [place] [address] Claudia Eaton DNP [address] [facility], [address] [place] [address] [email or web address] documented as of this encounter Visit Diagnoses Not on filedocumented in this encounter Additional Health Concerns Infection Onset Date Last Indicated Resolved Time CoV-Risk 04/14/2023 04/14/2023 04/25/2023 1:21 AM EDT documented as of this encounter Care Teams Guest Services Manager Relationship Specialty Start Date End Date Pj Doe PA [address] [place] [phone] [email or web address] PCP - General Unknown Provider Specialty 05/05/21 Li Briscoe MD [address] [address] [email or web address] Rig Welder Cardiology 01/01/21 Tarik Horne MD [address] [place] [address] [place] [address] Gastroenterology 02/12/21 documented as of this encounter Additional Source Comments The information contained in this document represents components of the legal health record. It is not the complete legal health record.[facility]
--- OUTSIDE RECORDS SUMMARY | 2025-07-10 13:26 | XMS_ITS | Encounter Summary ---
Author Organization [facility] Address [address] [place] [address] Phone Care Team Providers Care Outside Sales Manager Name Role Phone Li Briscoe MD Unavailable [phone] Tarik Horne MD Unavailable Pj Doe Primary Care Provider [phone] Encounter Details Date Type Department Care Team (Late st Contact Info) Description 05/18/2021 Procedure Pass [facility] US [address] [place] [address] Social History Tobacco Use Types Packs/Day Years [...] Description 12/05/2025 12:30 PM EST Ancillary Procedure [facility] 22 [facility] 3rd Floor, [address] [place] [address] Claudia Eaton, CESAR 22 [facility], [address] [place] [address] [email or web address] documented as of this encounter Visit Diagnoses Not on filedocumented in this encounter Additional Health Concerns Infection Onset Date Last Indicated Resolved Time CoV-Risk 04/14/2023 04/14/2023 04/25/2023 1:21 AM EDT documented as of this encounter Care Teams Outside Sales Manager Relationship Specialty Start Date End Date Pj Doe PA [address] [place] [phone] [email or web address] PCP - General Unknown Provider Specialty 05/05/21 Li Briscoe MD [address] [address] [email or web address] Program Support Clerk Cardiology 01/01/21 Tarik Horne MD [address] [place] [address] [place] [address] Gastroenterology 02/12/21 documented as of this encounter Additional Source Comments The information contained in this document represents components of the legal health record. It is not the complete legal health record.[facility]
--- OUTSIDE RECORDS SUMMARY | 2025-07-10 13:26 | XMS_ITS | Encounter Summary ---
Author Organization [facility] Address [address] [place] [address] Phone Care Team Providers Care Pot Builder Name Role Phone Li Briscoe MD Unavailable [phone] Tarik Horne MD Unavailable [phone] Pj Doe Primary Care Provider [phone] Encounter Details Date Type Department Care Team (Late st Contact Info) Description 01/15/2022 Procedure Pass [facility] [address] [place] [address] Social History Tobacco Use Types Packs/Day Years [...] Description 12/05/2025 12:30 PM EST Ancillary Procedure [facility] [address] [facility] 3rd Floor, [address] [place] [address] Claudia Eaton, CESAR [address] [facility], [address] [place] [address] [email or web address] documented as of this encounter Visit Diagnoses Not on filedocumented in this encounter Additional Health Concerns Infection Onset Date Last Indicated Resolved Time CoV-Risk 04/14/2023 04/14/2023 04/25/2023 1:21 AM EDT documented as of this encounter Care Teams Pot Builder Relationship Specialty Start Date End Date Pj Doe PA [address] [place] [phone] [email or web address] PCP - General Unknown Provider Specialty 05/05/21 Li Briscoe MD [address] [address] [email or web address] Rouge Mixer Cardiology 01/01/21 Tarik Horne MD [address] [place] [address] [place] [address] Gastroenterology 02/12/21 documented as of this encounter Additional Source Comments The information contained in this document represents components of the legal health record. It is not the complete legal health record.[facility]
--- OUTSIDE RECORDS SUMMARY | 2025-07-10 13:26 | XMS_ITS | Clinical Summary ---
Author Organization [facility] Address [facility] [place] [address] Care Team Providers Care Associate Project Manager Name Role Phone Suzanne Brito MD Primary Care Provider Medications albuteroL 90 mcg/actuation HFA Aerosol Inhaler Inhale 2 puffs into the lungs Every 6 hours as needed. Active aspirin EC 81 mg Tablet, Delayed Release (E.C.) Take 81 mg by mouth Daily. Active atorvastatin (Lipitor) 40 mg Tablet Take 40 mg by mouth Daily. Active bumetanide (Bumex) 1 mg Tablet Take 1 mg by mouth Daily. 0 Active levothyroxine (Synthroid) 88 mcg Tablet Active latanoprost (XALATAN) 0.005 % Drops Apply 1 drop to eye Daily. Active EPINEPHrine (EPINEPHrine) 0.1 mg/mL (1:10,000) Syringe Active multivitamin with minerals Tablet Active apixaban (ELIQUIS ORAL) Take by mouth. Unspecified Active psyllium seed, with dextrose, (FIBER ORAL) Take by mouth. Tablets - unspecified Active docosahexaenoic acid/epa (FISH OIL ORAL) Take by mouth. Activ e lidocaine (Lidoderm) 5% Adhesive Patch, Medicated Change on the skin every 24 hours. Apply 1 patch onto the skin daily. (leave on for 12 hours and remove for 12 hours) Active esomeprazole (NexIUM) 40 mg Capsule, Delayed Release(E.C.)In dications:Dyspe psia Take 1 capsule by mouth daily. Take 30 to 60 min prior to a meal 30 capsule 1 Active Symbicort 160-4.5 mcg/actuation HFA Aerosol Inhaler INHALE 2 PUFFS BY MOUTH TWICE A DAY 1 Active losartan (Cozaar) 25 mg Tablet TAKE 1 TABLET BY MOUTH EVERY DAY 1 Active metoprolol succinate XL (Toprol-XL) 50 mg Tablet Sustained Release 24 hr Take 50 mg by mouth Daily. Active spironolactone (Aldactone) 25 mg Tablet TAKE 1 TABLET BY MOUTH EVERY DAY 1 Active atorvastatin (Lipitor) 80 mg Tablet Take 80 mg by mouth Daily. 0 Active [id number] 2-E-FA-Fish Oil [id number] Capsule 1 capsule Active erythromycin (ROMYCIN) 5 mg/gram (0.5 %) Ointment INSTILL A SMALL AMOUNT IN BOTH EYES TWICE A DAY 1 Active montelukast (Singulair) 10 mg Tablet TAKE 1 TABLET BY MOUTH EVERY DAY 1 Active ascorbic acid (VITAMIN C ORAL) Take by mouth. Activ e Lactobac no.41/Bifidobac t no.7 (PROBIOTIC-10 ORAL) Take by mouth. Activ e Active Problems Problem Noted Date Diagnosed Date Dyspepsia 02/04/2021 Overview (02/04/2021): Added automatically from request for surgery [id number] Weight loss 02/04/2021 Overview (02/04/2021): Added automatically from request for surgery [id number] Bilateral recurrent inguinal hernia without obstruction or gangrene 01/16/2021 Umbilical hernia without obstruction and without gangrene 01/16/2021 Social History Tobacco Use Types Packs/Day Years Used Date Smoking Tobacco: Never Assessed Sex and Gender Information Value Date Recorded Sex Assigned at Not on file Legal Sex Male 6:30 AM EST Gender Identity Not on file Sexual Orientation Not on file Plan of Treatment Health Maintenance Due Date Last Done Comments CT Colonography 1950 Colonoscopy 1950 Colorectal Cancer Screening 1950 FIT DNA 1950 FIT 1950 Sigmoidoscopy (10 year) with FIT yearly 1950 Sigmoidoscopy 1950 Hepatitis C Screening 02/10/1968 Tetanus/Diphtheria/Pertussis Vaccines (1 - Tdap) 02/09 Pneumoccocal Vaccine: 50+ (1 of 1 - PCV) 02/10/2000 Zoster vaccine (1 of 2) 02/10/2000 Advance Directive 2005 RSV Vaccine (1 - 1-dose 75+ series) 2025 Covid-19 Vaccine (1 - season) 2025 Influenza (Flu) vaccine (1 o f 1 - Influenza standard series) 06/17/2025 Insurance [facility] Care Teams Associate Project Manager Relationship Specialty Start Date End Date Suzanne Brito MD [address] [address] PCP - General General Internal Medicine 01/19/21
--- OUTSIDE RECORDS SUMMARY | 2025-07-10 13:26 | XMS_ITS | Encounter Summary ---
Author Organization [facility] Address [address] [place] [address] Phone Care Team Providers Care Container Coordinator Name Role Phone Li Briscoe MD Unavailable [phone] Tarik Horne MD Unavailable [phone] Pj Doe Primary Care Provider [phone] Encounter Details Date Type Department Care Team (Late st Contact Info) Description 05/14/2021 Procedure Pass [facility] Cardiac Eligibility Specialist [address] [facility], [address], [address] [place] [address] Social History Tobacco Use Types Packs/Day Years [...] Description 12/05/2025 12:30 PM EST Ancillary Procedure [facility] [address] [facility] 3rd Floor, [address] [place] [address] Claudia Eaton DNP 22 [facility], [address] [place] [address] [email or web address] documented as of this encounter Visit Diagnoses Not on filedocumented in this encounter Additional Health Concerns Infection Onset Date Last Indicated Resolved Time CoV-Risk 04/14/2023 04/14/2023 04/25/2023 1:21 AM EDT documented as of this encounter Care Teams Container Coordinator Relationship Specialty Start Date End Date Pj Doe PA [address] [place] [phone] [email or web address] PCP - General Unknown Provider Specialty 05/05/21 Li Briscoe MD [address] [address] [email or web address] Psychiatric Arnp Cardiology 01/01/21 Tarik Horne MD [address] [place] [address] [place] [address] Gastroenterology 02/12/21 documented as of this encounter Additional Source Comments The information contained in this document represents components of the legal health record. It is not the complete legal health record.[facility]
--- OUTSIDE RECORDS SUMMARY | 2025-07-10 13:26 | XMS_ITS | Encounter Summary ---
Author Organization [facility] Address [address] [place] [address] Phone Care Team Providers Care Heat Treating Furnace Tender Name Role Phone Li Briscoe MD Unavailable [phone] Tarik Horne MD Unavailable [phone] Pj Doe Primary Care Provider [phone] Encounter Details Date Type Department Care Team (Late st Contact Info) Description 09/02/2021 Procedure Pass [facility], Sav [address] [facility], 2nd Floor, [address] [place] [address] Social History Tobacco Use Types Packs/Day Years [...] Description 12/05/2025 12:30 PM EST Ancillary Procedure [facility] 22 [facility] 3rd Floor, [address] [place] [address] Claudia Eaton DNP 22 [facility], [address] [place] [address] [email or web address] documented as of this encounter Visit Diagnoses Not on filedocumented in this encounter Additional Health Concerns Infection Onset Date Last Indicated Resolved Time CoV-Risk 04/14/2023 04/14/2023 04/25/2023 1:21 AM EDT documented as of this encounter Care Teams Heat Treating Furnace Tender Relationship Specialty Start Date End Date Pj Doe PA [address] [place] [phone] [email or web address] PCP - General Unknown Provider Specialty 05/05/21 Li Briscoe MD [address] [address] [email or web address] Check And Transfer Beader Cardiology 01/01/21 Tarik Horne MD [address] [place] [address] [place] [address] Gastroenterology 02/12/21 documented as of this encounter Additional Source Comments The information contained in this document represents components of the legal health record. It is not the complete legal health record.[facility]
--- OUTSIDE RECORDS SUMMARY | 2025-07-10 13:26 | XMS_ITS | Encounter Summary ---
Author Organization [facility] Address [address] [place] [address] Phone Care Team Providers Care Cooking Chef Name Role Phone Li Briscoe MD Unavailable [phone] Tarik Horne MD Unavailable [phone] Pj Doe Primary Care Provider [phone] Encounter Details Date Type Department Care Team (Late st Contact Info) Description 05/13/2021 Procedure Pass [facility] US [address] [place] [address] Social History Tobacco Use Types Packs/Day Years [...] Description 12/05/2025 12:30 PM EST Ancillary Procedure [facility] 22 [facility] 3rd Floor, [address] [place] [address] Claudia Eaton, CESAR [address] [facility], [address] [place] [address] [email or web address] documented as of this encounter Visit Diagnoses Not on filedocumented in this encounter Additional Health Concerns Infection Onset Date Last Indicated Resolved Time CoV-Risk 04/14/2023 04/14/2023 04/25/2023 1:21 AM EDT documented as of this encounter Care Teams Cooking Chef Relationship Specialty Start Date End Date Pj Doe PA [address] [place] [phone] [email or web address] PCP - General Unknown Provider Specialty 05/05/21 Li Briscoe MD [address] [address] [email or web address] Training Mgr Cardiology 01/01/21 Tarik Horne MD [address] [place] [address] [place] [address] Gastroenterology 02/12/21 documented as of this encounter Additional Source Comments The information contained in this document represents components of the legal health record. It is not the complete legal health record.[facility]
--- OUTSIDE RECORDS SUMMARY | 2025-07-10 13:27 | XMS_ITS | Encounter Summary ---
Author Organization [facility] Address [address] [place] [address] Phone Care Team Providers Care Home Stereo Equipment Installer Name Role Phone Li Briscoe MD Unavailable [phone] Tarik Horne MD Unavailable [phone] Pj Doe Primary Care Provider [phone] Encounter Details Date Type Department Care Team (Late st Contact Info) Description 08/14/2021 Procedure Pass [facility] Cardiac Motor Winder [address] [facility], [address] 9, [address] [place] [address] Social History Tobacco Use Types [...] Date of Assessment Author No Risk Indicated 08/14/2021 2:00 PM EDT Benedict Puente RN * [place] Suicide Severity Rating Scale (Screener/Recent Self-Report) Question Answer Date of Assessment Author 1. Wish to be (Past 1 Month) No 08/14/2021 2:00 PM EDT Benedict Mei Ma, RN 2. Non-Specific Active Suici mono Thoughts (Past 1 Month) No 08/14/2021 2:00 PM EDT Cari Mei RN 6. Suicidal Behavior (Lifetime) No 2:00 PM EDT Benedict Mei RN documented as of this encounter Plan of Treatment Upcoming Encounters Date Type Department Care Team (Latest Contact Info) Description 12/05/2025 12:30 PM EST Ancillary Procedure [facility] [address] [place] [address] 3rd Floor, [address] [place] [address] Claudia Eaton, CESAR [address] [place] [address] [email or web address] documented as of this encounter Visit Diagnoses Not on filedocumented in this encounter Additional Health Concerns Infection Onset Date Last Indicated Resolved Time CoV-Risk 04/14/2023 04/14/2023 04/25/2023 1:21 AM EDT documented as of this encounter Care Teams Home Stereo Equipment Installer Relationship Specialty Start Date End Date Pj Doe PA [address] [place] [phone] [email or web address] PCP - General Unknown Provider Specialty 05/05/21 Li Briscoe MD [address] [address] [email or web address] Thread Drawer Cardiology 01/01/21 Tarik Horne MD [address] [place] [address] [place] [address] Gastroenterology 02/12/21 documented as of this encounter Additional Source Comments The information contained in this document represents components of the legal health record. It is not the complete legal health record.[facility]
--- OUTSIDE RECORDS SUMMARY | 2025-07-10 13:27 | XMS_ITS | Encounter Summary ---
Author Organization [facility] Address [address] [place] [address] Phone Care Team Providers Care Material Inspector Name Role Phone Li Briscoe MD Unavailable [phone] Tarik Horne MD Unavailable [phone] Pj Doe Primary Care Provider [phone] Encounter Details Date Type Department Care Team (Late st Contact Info) Description 08/14/2021 Procedure Pass [facility] Cardiac US [address] [place] [address] Social History Tobacco Use Types Packs/Day Years [...] 2:00 PM EDT Benedict Puente RN * [place] Suicide Severity Rating Scale (Screener/Recent Self-Report) Question [...] Description 12/05/2025 12:30 PM EST Ancillary Procedure [facility] [address] [place] [address] [address] Floor, [address] [place] [id number] Claudia Eaton DNP [address] [place] [id number] [email or web address] documented as of this encounter Visit Diagnoses Not on filedocumented in this encounter Additional Health Concerns Infection Onset Date Last Indicated Resolved Time CoV-Risk 04/14/2023 04/14/2023 04/25/2023 1:21 AM EDT documented as of this encounter Care Teams Material Inspector Relationship Specialty Start Date End Date Pj Doe PA [address] [place] [phone] [email or web address] PCP - General Unknown Provider Specialty 05/05/21 Li Briscoe MD [address] [address] [email or web address] Specialist Cardiology 01/01/21 Tarik Horne MD [address] [place] [address] [place] [address] Gastroenterology 02/12/21 documented as of this encounter Additional Source Comments The information contained in this document represents components of the legal health record. It is not the complete legal health record.[facility]
== END 2025-07-10 10:44 | disposition home or self-care (01) ==
LOC: CF 10:43
DX: Z13.89 Encounter for screening for other disorder (principal)